=== PATIENT | female | born 1945 | race Caucasian/White ===

== ENCOUNTER 2016-04-22 10:04 | Inpatient (IN) | payer MEDICARE ==
[2016-04-22] VITALS (13 sets, daily range): BP systolic 136–185; BP diastolic 82–110; PULSE 74–115; RESP 18–28; TEMP 97.4–98.3; O2SAT 90–98
[~2016-04-22] VITALS: Ht 165.1 cm; Wt 81.6 kg
[2016-04-22] MEDS ORDERED: SODIUM CHLOR 0.9% 1000 ML INJ 1,000 ML IV SCH (10:40)
[2016-04-22] MEDS ORDERED: ONDANSETRON HCL 4 MG/2 ML VIAL IVP ONE (10:45)
[2016-04-22] MEDS ORDERED: MORPHINE SULFATE 4 MG/ML INJ IV PUSH ONE ×2 (10:45→11:00)
[2016-04-22] MEDS ORDERED: LORazepam 2 MG/ML VIAL IV PUSH ONE (11:00)
[2016-04-22 11:09] LABS: AUTOMATED NEUTROPHIL # 15.8 TH/MM3 (1.8-7.7); BASOPHIL % 0.2 % (0.0-2.0); HEMATOCRIT 51.6 % (35.0-46.0); LYMPH % 17.8 % (9.0-44.0); LYMPHOCYTE # 3.7 TH/MM3 (1.0-4.8); MEAN CELL VOLUME 91.2 FL (80.0-100.0); MEAN CORPUSCULAR HEMOGLOBIN 31.3 PG (27.0-34.0); MEAN CORPUSCULAR HGB CONC 34.3 % (32.0-36.0); MONO % 5.9 % (0.0-8.0); NEUT % 76.1 % (16.0-70.0); PLATELET COUNT 301 TH/MM3 (150-450); RED BLOOD COUNT 5.65 MIL/MM3 (4.00-5.30); RED CELL DISTRIBUTION WIDTH 13.9 % (11.6-17.2); WHITE BLOOD COUNT 20.7 TH/MM3 (4.0-11.0)
[2016-04-22 11:12] LABS: HEMO FLAGS AUTO DIFF
[2016-04-22 11:49] LABS: PLATELET ESTIMATE SMEAR NORMAL (NORMAL); PLATELET MORPHOLOGY NORMAL (NORMAL); SCAN/DIFF AUTO DIFF CONFIRMED
--- NOTE | 2016-04-22 12:25 | RADRPT ---
EXAM DATE/TIME: 04/22/2016 11:18 [facility] COMPARISON: No previous studies available for comparison. INDICATIONS: Abdominal pain with vomiting today. ORAL CONTRAST: No oral contrast ingested. RADIATION DOSE: 7.38 CTDIvol (mGy) MEDICAL HISTORY: None SURGICAL HISTORY: None. ENCOUNTER: Initial ACUITY: 1 day PAIN SCALE: 6/10 LOCATION: Right upper quadrant abdomen TECHNIQUE: Volumetric scanning of the abdomen and pelvis was performed. Using automated exposure control and ad justment of the mA and/or kV according to patient size, radiation dose was kept as low as reasonably achievable to obtain optimal diagnostic quality images. FINDINGS: Lung bases are clear. Two small low density lesions are seen in the left lobe of the liver that are probably cysts. Gallbladder appears abnormal with inflammatory changes around the gallbladder. Tim l appears adherent to the gallbladder. There is induration in the pancreas with some fluid in the le sser sac. Trace fluid is seen around the lower pole of the spleen. The right kidney is unremarkable. Apparent cyst is seen in the left kidney measuring 2 cm with a sma ll stone. Pelvic contents are unremarkable. CONCLUSION: 1. Findings consistent with what looks like acute pancreatitis. Cholecystitis is a consideration as well. 2. Trace free fluid is evident. Nate Mckenzie MD FACR on April 22, 2016 at 12:15 Board Certified Radiologist. This report was verified electronically.
[2016-04-22 13:00] LABS: ALKALINE PHOSPHATASE 58 U/L (45-117); ALT (GPT) 147 U/L (10-53); ANION GAP 13 MEQ/L (5-15); BICARBONATE 21.7 MEQ/L (21.0-32.0); BLOOD UREA NITROGEN 15 MG/DL (7-18); CHLORIDE 106 MEQ/L (98-107); GLOMERULAR FILTRATION RATE 56 ML/MIN (>89); SODIUM (NA) 141 MEQ/L (136-145)
[2016-04-22] MEDS ORDERED: SODIUM CHLOR 0.9% 1000 ML INJ 1,000 ML IV ONE ×2 (13:00→16:00)
[2016-04-22] MEDS ORDERED: SODIUM CHLOR 0.9% 1000 ML INJ 100 ML IV ONE (13:00)
[2016-04-22 13:02] LABS: LACTIC ACID GHOST NOT REPORTABLE
[2016-04-22 13:03] LABS: AST (GOT) 156 U/L (15-37); POTASSIUM 3.7 MEQ/L (3.5-5.1)
--- NOTE | 2016-04-22 13:05 | PD ---
HPI Chief Complaint: Abdominal Pain Time Seen by Provider: 10:36 Travel History International Travel<30 days: No Contact w/Intl Traveler<30days: No Traveled to known affect area: No History of Present Illness HPI Patient is a 70-year-old female with history of arthritis who presents emergency department with complaint of abdominal pain. Patient is here with and daughter who provided additional history. Patient has had abdominal pain for the course of the last several weeks to month and was evaluated by Kirti FARMER with endoscopy, colonoscopy and a gallbladder ultrasound showing evidence of gallbladder wall thickening, inflammation. It was recommended that she had a cholecystectomy the patient wanted to try homeopathic treatment and one on a diet. She had been doing well over the last 2 weeks since her bladder ultrasound, but last night she ate some bran cereal. She woke up at 2:30 in the morning with severe right upper quadrant abdominal pain that has spread throughout the abdomen. She isn't associated nausea, vomiting and has not been able to drink anything at this morning. Denies any fevers or chills. No urinary symptoms. PFSH Past Medical History Arthritis: Yes Immunizations Current: Yes Influenza Vaccination: No Para: 5 Past Surgical History Tonsillectomy: Yes Other Surgery: Yes (endoscopy, colonoscopy) Social History Alcohol Use: Yes (occas) Tobacco Use: No Substance Use: No Allergies-Medications (Allergen,Severity, Reaction): Coded Allergies: Sulfa (Verified Allergy, Intermediate, rash, 04/22/16) Reported Meds & Prescriptions Reported Meds & Active Scripts Active No Active Prescriptions or Reported Medications Review of Systems ROS Limitations: Poor Historian Except as stated in HPI: all other systems reviewed are Neg Physical Exam Exam Limitations: Poor Historian Narrative GENERAL: Uncomfortable female in moderate distress SKIN: Warm and dry. No wounds unfocused abdominal examination HEAD: Normocephalic. EYES: No scleral icterus. No injection or drainage. ENT: No nasal bleeding or discharge. Mucous membranes pink and moist. NECK: Supple CARDIOVASCULAR: Tachycardic with heart rate in the 100s, regular rhythm. No murmur appreciated. RESPIRATORY: No accessory muscle use. Clear to auscultation. Breath sounds equal bilaterally. GASTROINTESTINAL: Soft, diffuse abdominal tenderness to palpation greatest in the epigastrium without rebound or guarding MUSCULOSKELETAL: No edema. NEUROLOGICAL: Awake and alert. Motor grossly within normal limits. Normal speech. PSYCHIATRIC: Anxious Data Data Last Documented VS Vital Signs Date Time Temp Pulse Resp B/P Pulse Ox O2 Delivery O2 Flow Rate FiO2 04/22/16 11:30 74 20 162/110 97 Room Air 04/22/16 10:50 97.4 Orders Complete Blood Count With Diff (04/22/16 10:40) Comprehensive Metabolic Panel (04/22/16 10:40) Lipase (04/22/16 10:40) Urinalysis - C+S If Indicated (04/22/16 10:40) Iv Access Insert/Monitor (04/22/16 10:40) Ecg Monitoring (04/22/16 10:40) Oximetry (04/22/16 10:40) Morphine Inj (Morphine Inj) (04/22/16 10:45) Ondansetron Inj (Zofran Inj) (04/22/16 10:45) Sodium Chlor 0.9% 1000 Ml Inj (Ns 1000 M (04/22/16 10:40) Sodium Chloride 0.9% Flush (Ns Flush) (04/22/16 10:45) Electrocardiogram (04/22/16 10:40) Ed Poc Ultrasound (04/22/16 10:40) Lactic Acid Sepsis Protocol (04/22/16 10:48) Blood Culture (04/22/16 10:48) Ct Abd/Pel W/O Iv Contrast (04/22/16 10:59) Lorazepam Inj (Ativan Inj) (04/22/16 11:00) Morphine Inj (Morphine Inj) (04/22/16 11:00) Consult Rosie Nfs (04/22/16 ) Sodium Chlor 0.9% 1000 Ml Inj (Ns 1000 M (04/22/16 13:00) Sodium Chlor 0.9% 1000 Ml Inj (Ns 1000 M (04/22/16 13:00) Add Patient To Providers List (04/22/16 ) Admit Order (Ed Use Only) (04/22/16 11:59) Labs Laboratory Tests Test 04/22/16 10:55 White Blood Count 20.7 TH/MM3 Red Blood Count 5.65 MIL/MM3 Hemoglobin 17.7 GM/DL Hematocrit 51.6 % Mean Corpuscular Volume 91.2 FL Mean Corpuscular Hemoglobin 31.3 PG Mean Corpuscular Hemoglobin 34.3 % Concent Red Cell Distribution Width 13.9 % Platelet Count 301 TH/MM3 Mean Platelet Volume 8.4 FL Neutrophils (%) (Auto) 76.1 % Lymphocytes (%) (Auto) 17.8 % Monocytes (%) (Auto) 5.9 % Eosinophils (%) (Auto) 0.0 % Basophils (%) (Auto) 0.2 % Neutrophils # (Auto) 15.8 TH/MM3 Lymphocytes # (Auto) 3.7 TH/MM3 Monocytes # (Auto) 1.2 TH/MM3 Eosinophils # (Auto) 0.0 TH/MM3 Basophils # (Auto) 0.0 TH/MM3 CBC Comment AUTO DIFF Differential Comment AUTO DIFF CONFIRMED Platelet Estimate NORMAL Platelet Morphology Comment NORMAL Red Cell Morphology Comment NORMAL Lactic Acid Level 5.9 mmol/L MDM Medical Decision Making Medical Screen Exam Complete: Yes Emergency Medical Condition: Yes Medical Record Reviewed: Yes Differential Diagnosis 70-year-old female with history of arthritis here with complaint of right sided abdominal pain spreading to the rest of the abdomen since 2:30 AM after recent diagnosis of "inflamed gallbladder" on outpatient ultrasound approximate 2 weeks ago. Patient is uncomfortable, slightly tachycardic and tachypneic. Differential includes acute cholecystitis, choledocholithiasis, also pancreatitis, ascending cholangitis, appendicitis, peptic ulcer, perforated viscus, and less likely bowel obstruction. Narrative Course Patient placed on monitor, IV established and blood obtained, patient given 1 L normal saline bolus, 4 mg morphine, 4 mg Zofran and is still quite uncomfortable. Was given repeat 4 mg morphine, 1 mg Ativan with improvement of her symptoms. Bedside ultrasound performed, please see procedure note, showing inflamed gallbladder with thickened wall. Patient empirically treated with Zosyn. Dr. Giordano of surgery was involved and will treat patient operatively. However given the severity of her pain my concern for other peritoneal pathology is high and therefore CT of the abdomen and pelvis was obtained showing acute pancreatitis with acute cholecystitis. Given this Dr. Giordano would prefer the patient is admitted to medicine and him to consult, MRCP was ordered. CBC, CMP, lipase, urinalysis, lactate, blood cultures were obtained and notable for WBC 20.7, hemoglobin 17.7 likely from hemoconcentration, lactate 5.9. Additional IV fluids were administered for 30 mg/kg bolus. Remainder of the laboratory workup was notable for lipase of 25,378. Equine Breeder contacted for admission. Critical Care Narrative Aggregate critical care time was 50 minutes. Time to perform other separately billable procedures was not included in the critical care time. My time did not include minutes spent treating any other patients simultaneously or on activities that did not directly contribute to the patient's treatment. The services I provided to this patient were to treat and/or prevent clinically significant deterioration that could result in: Cardiopulmonary decompensation , , disability I provided critical care services requiring my management, as noted below: Chart data review, documentation time, medication orders and management, vital sign assessments/reviewing monitor data, ordering and reviewing lab tests, ordering and interpreting/reviewing x-rays and diagnostic studies, care of the patient and discussion of the patient with the admitting physicians. Procedures Procedure Narrative Patient consented to bedside ultrasound. Curvilinear probe was used in the right upper quadrant revealing gallbladder wall with thickening, slight fluid within the gallbladder wall but no evidence of pericholecystic fluid. Positive sonographic Lynn sign. Sepsis Criteria SIRS Criteria (2 or more): Heart rate over 90, RR > 20 or PaCO2 < 32, WBC > 98646, < 4000 or > 10% bands Sepsis Criteria (SIRS+source): Infect source susp/known Severe Sepsis (+one): Lactate >2 Septic Shock Criteria: Lactic acid >=4 Criteria Outcome: Meets SIRS criteria, Meets sepsis criteria, Meets severe sepsis criteria, Meets septic shock criteria Diagnosis Primary Impression: Septic shock Additional Impressions: Acute cholecystitis Gallstone pancreatitis Lactic acidosis Leukocytosis Qualified Code: D72.829 - Leukocytosis, unspecified type Admitting Information Admitting Physician Requests: Admit Scripts No Active Prescriptions or Reported Meds Marline Cortés MD Apr 22, 2016 13:05 Marline Cortés MD Apr 22, 2016 13:05
[2016-04-22] MEDS ORDERED: PIPERACIL-TAZO 4.5 GM PREMIX 100 ML IV ONE (13:15)
[2016-04-22] MEDS ORDERED: CHLORHEXIDINE GLUCONATE 2 % 1 PACK (2 CLOTHS) TOP PRN (13:45)
[2016-04-22] MEDS ORDERED: DEXTROSE 50% IN WATER 50 ML VIAL(D50) IV PUSH PRN (13:45)
[2016-04-22] MEDS: INSULIN NovoLIN REGULAR SUPPLEMENTAL SCALE SQ SCH ×2 (13:45→19:34)
[2016-04-22] MEDS ORDERED: GLUCAGON 1 MG/ML VIAL OTHER PRN (13:45)
[2016-04-22] MEDS ORDERED: MISCELLANEOUS NURSING INFORMATION XX SCH (13:45)
[2016-04-22] MEDS: PIPERACIL-TAZO 4.5 GM PREMIX 100 ML IV SCH ×2 (14:00→19:34)
[2016-04-22 14:12] LABS: HDL CHOLESTEROL 45.1 MG/DL (40.0-60.0); LDL CHOLESTEROL 181 MG/DL (0-99)
[2016-04-22] MEDS: PANTOPRAZOLE SODIUM 40 MG VIAL IV SCH (14:37)
--- NOTE | 2016-04-22 14:56 | RADRPT ---
EXAM DATE/TIME: 04/22/2016 13:57 [place] Corrected on: April 22, 2016; [facility] COMPARISON: CT ABDOMEN & PELVIS W/O CONTRAST, April 22, 2016, 11:18. INDICATIONS : Pancreatitis. MEDICAL HISTORY : None. SURGICAL HISTORY : Tonsillectomy. ENCOUNTER: Initial ACUITY: 2 day PAIN SCORE: 7/10 LOCATION: Abdomen. TECHNIQUE: Multiplanar, multisequence magnetic resonance imaging of the abdomen was performed. High-resolution 3D dataset was utilized to reconstruct maximum-intensity projection (MIP) images. FINDINGS: INTRAHEPATIC BILE DUCTS: Within normal limits. No significant anatomical variant is present. EXTRAHEPATIC BILE DUCTS: The common bile duct measures 3mm. No stone or filling defect is identified. GALLBLADDER: Small gallstones without wall thickening. LIVER: Normal size and signal intensity. No concerning liver lesion is identified on this non-contrast exam. Several hepatic cysts. PANCREAS: Extensive inflammatory changes. Fluid is seen surrounding the pancreas and gallbladder. Fluid in the upper abdomen and tracking in the paracolic gutters. OTHER: The remaining visualized structures demonstrate no acute abnormality on this non-contrast exam. Left renal cyst. CONCLUSION: Acute pancreatitis with extensive phlegmon reaction and ascites throughout the upper abdomen. There i s evidence of cholelithiasis. Kashmir Hunter MD on April 22, 2016 at 14:48 Board Certified Radiologist. This report was verified electronically. Kashmir Hunter MD on April 22, 2016 at 15:42 Board Certified Radiologist. This report was verified electronically.
[2016-04-22] MEDS: MORPHINE SULFATE 4 MG/ML INJ IV PUSH PRN ×5 (15:30→22:31)
[2016-04-22] MEDS: ONDANSETRON HCL 4 MG/2 ML VIAL IV PUSH PRN ×2 (15:30→22:59)
[2016-04-22] MEDS: RESP: ALBUTEROL 2.5 MG/IPRATROPIUM 0.5 MG NEB (SCH) INH ×2 (16:00→20:33)
--- NOTE | 2016-04-22 16:08 | PD.CONS ---
GI Consult GI Consult SEE FORMAL DICTATED GI CONSULT ALSO ASSESSMENT/PLAN: 1. Acute pancreatitis-prob gallstone related 2. Gallstones/Gallbladder polyps--No stones in CBD 3. Elevated LFT--however bilirubin/alkaline phosphatase is normal 4. Abd pain PLAN: 1. bowel rest 2. analgesics/copious IV fluids 3. Cont antibiotics 4. No ERCP unless evidence of CBD stones 5. will need GB removed (surgery has seen pt) 6. D/W underwriting specialist It was a pleasure seeing Mary Araujo . Thank you for this consult. Entered by: Yovany Chau MD Apr 22, 2016 16:08
--- NOTE | 2016-04-22 16:18 | RADRPT ---
EXAM DATE/TIME: 04/22/2016 15:09 [facility] COMPARISON: MRCP W/O CONTRAST, April 22, 2016, 13:57. CT ABDOMEN & PELVIS W/O CONTRAST, April 22, 2016, 11:18. EXTERNAL COMPARISON : [facility], Ultrasound abdomen, April 01, 2016 INDICATIONS : Increased lab values. Abdominal pain. MEDICAL HISTORY : Abdominal pain. SURGICAL HISTORY : Tonsillectomy. Colonoscopy. Endoscopy. ENCOUNTER: Initial ACUITY: 2 weeks PAIN SCORE: 8/10 LOCATION: Bilateral upper quadrant MEASUREMENTS: LIVER: 14.5 cm length COMMON DUCT: 5 mm RIGHT KIDNEY: 9.1 x 4.5 x 5.4 cm SPLEEN: 9.4 cm length FINDINGS: LIVER: Normal echotexture without focal lesion or ductal dilatation. Hepatopedal flow within the portal vein . A trace amount of ascites. COMMON DUCT: No intraluminal mass or stone visualized. GALLBLADDER: No discrete stones observed on the ultrasound. The gallbladder is not dilated. There is wall thickeni ng measuring 6 mm but the gallbladder is not well distended which will artifactually elevate this summer ue. There is a small amount of fluid adjacent to the gallbladder. PANCREAS: The pancreas is largely obscured by bowel gas. The visualized portions of the pancreatic head are unr emarkable. RIGHT KIDNEY: No hydronephrosis, stone or mass. SPLEEN: No focal lesion. CONCLUSION: 1. Although there is gallbladder wall thickening and pericholecystic fluid the gallbladder is not dis tended nor do I identify any stones or sludge. MRCP is more sensitive for detecting small stones. 2. Trace amount ascites. Rene Mosqueda Jr., MD on April 22, 2016 at 15:54 Board Certified Radiologist. This report was verified electronically.
[2016-04-22] MEDS: SODIUM CHLOR 0.9% 1000 ML INJ 1,000 ML IV SCH ×2 (16:44→22:30)
--- NOTE | 2016-04-22 16:54 | MH ---
cc: ALICIA BEGUM DATE OF ADMISSION 04/22/2016 DATE OF 1945 HISTORY OF PRESENT ILLNESS The patient is 70-year-old female with a past medical history of arthritis who presented to [facility] ED with complaint of diffuse abdominal pain associated with intractable nausea and vomiting. She denies any diarrhea or constipation. In addition, the patient denies any constitutional symptoms, chest pain or shortness of breath. She has had abdominal pain for several weeks in the past and was seen by Kirti FARMER and underwent endoscopy, colonoscopy and a gallbladder ultrasound which showed gallstones within the gallbladder and inflammation. It was recommended that she undergo a cholecystectomy. However, the patient refused and wanted to try homeopathic treatment. On arrival to the ED, the patient was tachycardic with a heart rate of 101 to 108. Her laboratory data significant for a leukocytosis with a WBC of 20.7 and lactic acidosis with a lactic acid level of 5.9. Furthermore, the patient was found to have significant elevated lipase level at 25,378 and elevated liver enzymes with AST of 156 and ALT 147 with a total bilirubin of 1.0. She had a CT scan of the abdomen and pelvis which showed findings consistent with acute pancreatitis in addition to possible cholecystitis. She subsequently underwent an MRCP which showed acute pancreatitis with extensive phlegmon reaction and ascites throughout the upper abdomen and evidence of cholelithiasis. In the emergency department, she was given morphine for pain and currently receiving third liter of crystalloids. The patient also was given Zosyn. She was seen by Dr. Stern from GI and Dr. Giordano from surgery and plan to continue with medical management for now until her acute pancreatitis resolves. The patient is a nondrinker. PAST MEDICAL HISTORY Significant for arthritis. PAST SURGICAL HISTORY 1. Previous tonsillectomy. 2. Previous endoscopy, colonoscopy. SOCIAL HISTORY Nonsmoker, nondrinker. ALLERGIES SULFA - ITCHING. MEDICATIONS At home, no active prescriptions reported REVIEW OF SYSTEMS As per HPI. Rest of the review of system unremarkable. PHYSICAL EXAMINATION GENERAL: A 70-year-old female with ill-appearing lying in bed in no acute respiratory distress complaining of abdominal pain. VITAL SIGNS: Temperature 97.4, pulse of 104, blood pressure 183/94, saturation 96% on room air. HEENT: Atraumatic, normocephalic. Pupils equal, round, reactive to light and accommodation. Extraocular muscles intact. Conjunctivae pink. Nonicteric sclerae. Oral mucosa within normal. Dry mucous membranes noted. NECK: Supple. No JVD, adenopathy or thyromegaly. Trachea in the midline. CARDIOVASCULAR: Tachycardic, normal S1-S2. No murmurs, rubs or gallops noted. PULMONARY: Bilateral equal entry. No crackles or wheezing. ABDOMEN: Soft, tenderness upon palpation. No guarding. EXTREMITIES: No cyanosis, clubbing or edema. NEUROLOGIC: No focal sensory deficit. LABORATORY DATA Sodium 141, potassium 3.7, chloride 106, CO2 21, BUN 15, creatinine 0.98, glucose 174, lactic acid 5.9 on repeat 3.6, total bilirubin one, AST 156, ALT 147, alk phos 58. Triglycerides 212, cholesterol 268, LDL 181, HDL 45, lipase 25,378. WBC 20, hemoglobin 17, hematocrit 51, platelet count of 301, Alcohol level less than three. IMAGING STUDIES CT abdomen and pelvis showed findings consistent with acute pancreatitis and possible cholecystitis. MRCP showed acute pancreatitis with extensive phlegmon reaction and ascites and cholelithiasis. IMPRESSION 1. Sepsis. 2. Acute pancreatitis. 3. Cholelithiasis. 4. Lactic acidemia. 5. Leukocytosis 6. Elevated liver enzymes. 7. Hypertension 8. Hyperlipidemia 9. Hyperglycemia secondary to critical illness RECOMMENDATIONS 1. Monitor neuro status and avoid sedatives. The patient is awake and alert. 2. We will place on morphine 2 mg IV q. 4 hours p.r.n. for pain. 3. Oxygen p.r.n. to maintain sats above 92%. 4. Bronchodilators on a p.r.n. basis. 5. Monitor heart rate and blood pressure closely and maintain MAP greater than 65 mmHg. Serial lactic acid monitoring. Lactic acid trending down 3.6 from 5.9 on arrival. She is currently receiving third liter of crystalloids. We will give an additional 1 liter bolus of normal saline followed by maintenance fluids NS at 150 mL an hour. 6. Monitor renal function. Insert a Roberts and electrolyte replacement per protocol. 7. Keep n.p.o. for now, bowel rest. Place on Protonix 40 mg IV for GI prophylaxis. 8. Monitor LFTs and lipase level. GI and general surgery are following. Discussed with GI plan for medical management for now with antibiotics and fluids and possible cholecystectomy once her acute pancreatitis episode resolves. 9. Continue with broad-spectrum antibiotics in the form of Zosyn and monitor for signs of infections which include fever and WBC. Follow up on blood cultures. We will obtain a baseline chest x-ray and urinalysis with culture if indicated. 10. Monitor CBC. 11. Place on sliding scale insulin with Accu-Chek q. 6-hour for glycemic control. 12. GI prophylaxis with Protonix 40 mg daily and DVT prophylaxis with SCDs. We will hold off on chemical anticoagulation prophylaxis for now pending possible procedures. Further recommendations will be based on hospital course. Critical care time 35 minutes excluding procedures. MD CHER Kessler/ /4:00 PM /4:33 PM
--- NOTE | 2016-04-22 17:36 | MB ---
cc: LEA SUTTON MD, SUNIL P. MD STELLA,BETTY Tomas M.D. DATE OF CONSULTATION 04/22/16 DATE OF 1945 be Shaina and . REASON FOR CONSULTATION I was asked to see the patient at the request of the ER as well as the medical physics researcher for further evaluation of pancreatitis. HISTORY The patient is a pleasant 70-year-old white female who has been seen by my partner, Dr. Clarke, in the office.. She had some epigastric and right upper quadrant pain which was bloating and burning in nature. She underwent an upper endoscopy that revealed a small hiatal hernias well as gastritis. Biopsy did not show any H. pylori. A colonoscopy was also done which revealed hyperplastic colon polyps as well as adenomatous polyps. An ultrasound was done which showed multiple gallstones and a cholesterol polyp. There was also thickening of the gallbladder suggestive of at least chronic gallbladder disease. The bile duct looked okay and she had two small cysts in the liver. There is also a possibility of some medical renal disease in regards to her right kidney. It was suggested that she see a surgeon, but apparently she decided on some homeopathic treatment and diet. Unfortunately, early this morning (at 2:30 in the morning) she awoke with severe right upper quadrant pain associated with nausea and dry heaves. She came to the emergency room and a CAT scan showed pancreatitis and as such MRCP showed gallstones but no common bile duct stones. We are asked to evaluate her in this regard. The patient has already been seen by general surgery and apparently has gallbladder surgery planned in the near future. At this time, her nausea and vomiting is better and she has just received some analgesia and the pain is somewhat improved but is still present. It is a severe pain radiating directly into her back. There has been no more vomiting, some nausea persists. No melena, hematemesis, diarrhea, constipation. No fever or chills. The patient denies history of blood transfusions, IV drug abuse or tattoos or hepatitis or jaundice. PAST MEDICAL HISTORY 1. Adenomatous and Hyperplastic colon polyps. 2. Gastritis. 3. Hiatal hernia, 4. Gallstones, 5. Gallbladder wall polyp 6. Liver cysts. 7. Arthritis PAST SURGICAL HISTORY Tonsillectomy SOCIAL HISTORY Does not smoke, drinks alcohol socially., nothing on a daily basis. ALLERGIES SULFA. MEDICATIONS Outpatient none. Inpatient 1. Albuterol. 2. Zofran. 3. Morphine. 4. Zosyn (piperacillin) 5. Pantoprazole 6. Glucagon insulin. FAMILY HISTORY Significant for dementia and colon cancer in mother. No history of gallbladder history, liver disease or pancreatitis. REVIEW OF SYSTEMS No weight loss, fever or chills. CARDIOPULMONARY: No chest pain, palpitation, SOB or wheezing GASTROINTESTINAL: Please see above. Otherwise unremarkable ten-point review of systems. PHYSICAL EXAMINATION VITAL SIGNS: Blood pressure is 155/85, pulse 103, respiratory rate 20. Temperature 97.4. GENERAL: She is a 70-year white female who appears her stated age, complained of mild to moderate upper abdominal pain and complained of mild abdominal pain although it is more serious (she recent got pain medications). She appears to be resting comfortably right now. HEENT: Her pupils equal, round and react to light. No obvious scleral icterus. Oropharynx had dental caries. No marleny lesion. Hearing intact. NECK: Supple. No thyromegaly or adenopathy. LUNGS: Clear to auscultation. HEART: Regular rate and rhythm. No gross rubs are heard. The heart was somewhat tachycardiac. It was regular. No murmurs are heard. ABDOMEN: Soft, nondistended. there is moderate tenderness in the upper abdomen but no rebound tenderness, organomegaly or masses. There is no obvious Lynn's sign. EXTREMITIES: No cyanosis, clubbing or edema. NEUROLOGIC: Cranial nerves II-XII are grossly intact. No gross sensory deficits. She was alert and oriented times three. SKIN: Warm and dry. IMAGING STUDIES CT scan of the abdomen and pelvis was done and this revealed findings consistent with acute pancreatitis. We also could not rule out cholecystitis. There was trace free fluid in the abdomen which is noted. There are two cysts in the, otherwise, liver appeared unremarkable. An MRCP was also done (I reviewed the MRCP as well as the CT scan with the radiologist). The MRCP showed the common bile duct to be normal. There was acute pancreatitis with extensive phlegmon. There was evidence of gallstones. LABORATORY DATA Other important laboratories include white blood cell count of 20,700, hemoglobin 13.7, hematocrit 51.6, platelet count 301,000, MCV 91.2. Chemistries reveal lactic acid initially at 5.0. was elevated and then it dropped to 3.6. Her BUN was 15, creatinine 0.98. Blood sugar is 174. Her total bilirubin 1.0, alkaline phos is normal at 58, SGOT is 156 which is elevated, SGPT 147 is elevated. Her triglyceride level is 12 which was elevated. Cholesterol at 268 is elevated. LDL 181 was elevated. Lipase is 25,378. Her calcium level is 8.7. The alcohol was less than 310. IMPRESSION 1. Pancreatitis, probably on the basis of gallstones. She does not drink excessively and triglyceride levels are only minimally elevated. She does have known gallstones on previous ultrasound as mentioned above. We talked about the pathophysiology of gallstone pancreatitis - small stone probably passed through the bile duct and irritated the ampulla leading to pancreatitis. There appears to be no common bile stones noted at this time. 2. Gallstones/gallbladder wall polyp - the previous ultrasound showed gallbladder polyps and gallstones. The MRCP did show gallstones but no common bile duct stones. 3. Increased LFTs - her transaminase is elevated. This is probably related to pancreatitis, possible cholecystitis. However, she understands that her bilirubin and alk phos are normal. This goes against common bile duct stones. As mentioned above, MRCP did not show common bile duct. 4. Abdominal pain - she has upper abdominal pain characteristic of pancreatitis. RECOMMENDATIONS 1. Bowel rest as you are doing. 2. Analgesia and copious IV fluids. 3. Continue antibiotics. - she has been started on Zofran 4. No ERCP unless there is evidence of common bile duct stones (if the bilirubin and alk phos start rising and there is evidence of ascending cholangitis then at that point she probably would need ERCP). 5. Will need gallbladder removed (surgery has already seen the patient) 6. Discuss with medical physics researcher. Further recommendations depend on how she does. Yovany Stern MD SP/ /4:12 PM /4:54 PM [place]
[2016-04-22 17:55] LABS: AMPHETAMINE, URINE NEG (NEG); BARBITURATES, URINE NEG (NEG); COCAINE, URINE NEG (NEG)
[2016-04-22 18:01] LABS: BLOOD, URINE NEG (NEG); GLUCOSE,URINE 70 mg/dL (NEG); HYALINE CAST, URINE 6 /lpf (RARE); KETONE, URINE 10 mg/dL (NEG); MUCUS URINE FEW /lpf (OCC); NITRITE,URINE NEG (NEG); URINE COLOR YELLOW (YELLW/STRAW)
[2016-04-22 18:14] LABS: COMMENT (UR) CATH-CULT NOT IND; CULTURE IF INDICATED CATH CULTURE NOT IND
--- NOTE | 2016-04-22 19:00 | MB ---
cc: ANTONY HARRELL MD DATE OF CONSULTATION 04/22/16 REASON FOR CONSULTATION Gallstone pancreatitis, cholelithiasis. HISTORY OF PRESENT ILLNESS The patient is a 70-year-old female who presents to emergency department with complaints of acute onset of abdominal pain. She states she has had this pain for several weeks, specifically right upper quadrant pain. She had some evaluation with endoscopy, colonoscopy which were within normal limits. She also had a gallbladder ultrasound showing multiple gallstones and some gallbladder polyps. She "underwent a gallbladder cleansing" and states that she has passed several stones and improved throughout the several weeks. However, she notes development of acute 10/10 pain right upper quadrant and periumbilical epigastric radiating to the back, 10/10, worse with movement, some relief with lying still, associated nausea. Denies vomiting. Therefore, she came to the emergency department for further evaluation. She had a CT scan and a bedside ultrasound. The ultrasound showed gallstones. CT scan shows acute pancreatitis with peripancreatic fluid. On my exam, the patient is resting. She does state severe abdominal pain. Vital signs are normal. Her white count is 20. She states some improvement in pain with the medication. PAST MEDICAL HISTORY 1. Arthritis, 2. History of gallstones, PAST SURGICAL HISTORY 1. Endoscopy, colonoscopy. 2. Tonsillectomy SOCIAL HISTORY Occasional ETOH, denies smoking or IVDA. ALLERGIES SULFA MEDICATIONS See EMR. FAMILY HISTORY Denies diabetes or hypertension. REVIEW OF SYSTEMS GENERAL: Denies fevers, chills. HEENT: Denies eye pain, ear pain. NECK: Denies swelling or pain. RESPIRATORY: Denies shortness of breath or wheeze. CARDIAC: Complains of minimal palpitations, tachycardia. Denies chest pain. ABDOMEN: Complains of abdominal pain, right upper quadrant epigastric diffuse in radiation, complained of nausea, denies vomiting. MUSCULOSKELETAL: Denies edema. Complained of arthralgia. NEUROLOGIC: Denies numbness, tingling. PSYCHIATRIC: Denies change in mood. Complained of anxiousness. PHYSICAL EXAMINATION GENERAL: The patient in no acute distress. VITAL SIGNS: Temperature 97.4, pulse 108, respiration 24, blood pressure 136/82, saturation 97% on room air. HEENT: No scleral icterus, PERRLAx. Normocephalic, atraumatic. NECK: Trachea midline. No JVD. HEART: S1-S2, tachycardia, respirations clear, bilateral expansion. ABDOMEN: Soft, positive tenderness to palpation epigastrium right upper quadrant. EXTREMITIES: Warm, well-perfused. No edema. : Within normal limits. MUSCULOSKELETAL: 2+ pulses. NEUROLOGIC: GCS of 15, moving all extremities. INTEGUMENT: No obvious masses or lesions. LABORATORY AND DIAGNOSTIC DATA WBC 20.7, hemoglobin 17.7, hematocrit 51.6, platelets 301. Sodium 141, potassium 3.7, chloride 106, CO2 21, BUN 15. creatinine 0.98, glucose 174, lactate 5.9, AST 156, ALT 147, alk phos 58, lipase 25,378. Coagulation pending. IMAGING STUDIES CT reviewed by myself - acute pancreatitis, peripancreatic fluid. Cholecystitis, cholelithiasis. ASSESSMENT The patient is a 70-year-old female recent history of gallstones who presents with likely gallstone pancreatitis, leukocytosis. Cheondoism. PLAN After full clinical radiologic laboratory workup, the patient with above-named issue including pancreatitis, likely etiology gallstones. Discussed with the patient's family at bedside. Recommend antibiotics and by mouth IV fluids, pain control, bowel rest. At this point, we will obtain an MRCP to further evaluate and assess the bile duct tree to rule out any cholecystectomy. Further recommend possible GI consult pending results of MRCP for further evaluation and possible ERCP. The patient may warrant a laparoscopic cholecystectomy. However, we will treat the patient first medically and will be dictated again pending MRCP whether ERCP is warranted prior to laparoscopic cholecystectomy. We will plan for cholecystectomy this hospital admission. However, again we will evaluate for common bile duct stones and allow acute inflammation of the pancreas to improve. Further, the patient is Jain. Therefore, we will try and avoid any blood product administration. Further I recommend checking coagulation studies. We will continue to monitor the patient closely for any change in clinical status and repeat lab values. This was discussed with the patient and family in detail. They state understanding and agree and would like to proceed with intervention. MD MAGAN King/ /4:28 PM /6:31 PM
--- NOTE | 2016-04-22 19:42 | RADRPT ---
EXAM DATE/TIME: 04/22/2016 18:04 [facility] COMPARISON: No previous studies available for comparison. INDICATIONS : Short of Breath. MEDICAL HISTORY : None. SURGICAL HISTORY : Tonsillectomy. Colonoscopy. Endoscopy. ENCOUNTER: Initial ACUITY: 1 day PAIN SCORE: Non-responsive. LOCATION: Bilateral chest FINDINGS: The lungs are hypoaerated. Airspace disease is seen in the left base. Mid-upper lung zarco are clear. Heart and mediastinal surfaces are unremarkable CONCLUSION: Left basilar airspace disease. Lukas Freeman MD on April 22, 2016 at 19:40 Board Certified Radiologist. This report was verified electronically.
[2016-04-23] VITALS (14 sets, daily range): BP systolic 132–183; BP diastolic 76–94; PULSE 99–118; RESP 13–20; TEMP 97.8–100; O2SAT 24–96
[2016-04-23] MEDS: MORPHINE SULFATE 4 MG/ML INJ IV PUSH PRN ×10 (00:52→22:42)
[2016-04-23] MEDS ORDERED: SODIUM CHLOR 0.9% 1000 ML INJ 1,000 ML IV SCH ×2 (01:15→05:45)
[2016-04-23] MEDS: PIPERACIL-TAZO 4.5 GM PREMIX 100 ML IV SCH ×4 (02:09→20:23)
[2016-04-23] MEDS: INSULIN NovoLIN REGULAR SUPPLEMENTAL SCALE SQ SCH ×5 (02:09→20:43)
[2016-04-23] MEDS: RESP: ALBUTEROL 2.5 MG/IPRATROPIUM 0.5 MG NEB (SCH) INH ×4 (04:00→20:25)
[2016-04-23] MEDS: CHLORHEXIDINE GLUCONATE 2 % 1 PACK (2 CLOTHS) TOP SCH (04:00)
[2016-04-23 05:02] LABS: BASOPHIL % 0.2 % (0.0-2.0); HEMATOCRIT 44.8 % (35.0-46.0); HEMO FLAGS DIFF FINAL; LYMPH % 7.5 % (9.0-44.0); LYMPHOCYTE # 0.8 TH/MM3 (1.0-4.8); MEAN CELL VOLUME 93.4 FL (80.0-100.0); MEAN CORPUSCULAR HEMOGLOBIN 30.6 PG (27.0-34.0); MEAN CORPUSCULAR HGB CONC 32.8 % (32.0-36.0); MONO % 6.3 % (0.0-8.0); PLATELET COUNT 181 TH/MM3 (150-450); RED CELL DISTRIBUTION WIDTH 14.4 % (11.6-17.2); WHITE BLOOD COUNT 10.5 TH/MM3 (4.0-11.0)
[2016-04-23 05:03] LABS: ALT (GPT) 97 U/L (10-53); ANION GAP 14 MEQ/L (5-15); AST (GOT) 80 U/L (15-37); BICARBONATE 20.2 MEQ/L (21.0-32.0); BLOOD UREA NITROGEN 15 MG/DL (7-18); CHLORIDE 109 MEQ/L (98-107); MAGNESIUM 1.8 MG/DL (1.5-2.5); POTASSIUM 4.4 MEQ/L (3.5-5.1); SODIUM (NA) 143 MEQ/L (136-145)
[2016-04-23 05:04] LABS: ALKALINE PHOSPHATASE 42 U/L (45-117); TOTAL BILIRUBIN ADULT 2.2 MG/DL (0.2-1.0)
[2016-04-23] MEDS: SODIUM CHLOR 0.9% 1000 ML INJ 1,000 ML IV SCH ×4 (05:40→20:44)
[2016-04-23] MEDS: PANTOPRAZOLE SODIUM 40 MG VIAL IV SCH (08:11)
--- NOTE | 2016-04-23 08:48 | HHI.CCPN ---
Subjective Remarks/Hospital Course The patient is 70-year-old female with a past medical history of arthritis who presented to [facility] ED with complaint of diffuse abdominal pain associated with intractable nausea and vomiting. She denies any diarrhea or constipation. In addition, the patient denies any constitutional symptoms, chest pain or shortness of breath. She has had abdominal pain for several weeks in the past and was seen by Kirti FARMER and underwent endoscopy, colonoscopy and a gallbladder ultrasound which showed gallstones within the gallbladder and inflammation. It was recommended that she undergo a cholecystectomy. However, the patient refused and wanted to try homeopathic treatment. On arrival to the ED, the patient was tachycardic with a heart rate of 101 to 108. Her laboratory data significant for a leukocytosis with a WBC of 20.7 and lactic acidosis with a lactic acid level of 5.9. Furthermore, the patient was found to have significant elevated lipase level at 25,378 and elevated liver enzymes with AST of 156 and ALT 147 with a total bilirubin of 1.0. She had a CT scan of the abdomen and pelvis which showed findings consistent with acute pancreatitis in addition to possible cholecystitis. She subsequently underwent an MRCP which showed acute pancreatitis with extensive phlegmon reaction and ascites throughout the upper abdomen and evidence of cholelithiasis. In the emergency department, she was given morphine for pain and currently receiving third liter of crystalloids. The patient also was given Zosyn. She was seen by Dr. Stern from GI and Dr. Giordano from surgery and plan to continue with medical management for now until her acute pancreatitis resolves. The patient is a nondrinker. 04/23 Patient sates her abd pain somewhat better since last night received additional 2L boluses of NS lactic acid 5.8 this morning. WBC 10 from 20 this morning Objective Vital Signs Date Time Temp Pulse Resp B/P Pulse Ox O2 Delivery O2 Flow Rate FiO2 04/23/16 06:18 18 04/23/16 06:00 108 04/23/16 04:00 97.8 172/94 95 04/22/16 20:32 Nasal Cannula 2.00 04/22/16 15:03 21 Intake and Output 04/22/16 04/22/16 04/23/16 08:00 16:00 00:00 Intake Total 821 ml Output Total 600 ml Balance 221 ml Result Diagram: 04/23/16 0426 04/23/16 0426 Other Results Laboratory Tests Test 04/22/16 04/22/16 04/22/16 04/22/16 10:55 12:06 13:48 16:00 White Blood Count 20.7 TH/MM3 Red Blood Count 5.65 MIL/MM3 Hemoglobin 17.7 GM/DL Hematocrit 51.6 % Mean Corpuscular Volume 91.2 FL Mean Corpuscular Hemoglobin 31.3 PG Mean Corpuscular Hemoglobin 34.3 % Concent Red Cell Distribution Width 13.9 % Platelet Count 301 TH/MM3 Mean Platelet Volume 8.4 FL Neutrophils (%) (Auto) 76.1 % Lymphocytes (%) (Auto) 17.8 % Monocytes (%) (Auto) 5.9 % Eosinophils (%) (Auto) 0.0 % Basophils (%) (Auto) 0.2 % Neutrophils # (Auto) 15.8 TH/MM3 Lymphocytes # (Auto) 3.7 TH/MM3 Monocytes # (Auto) 1.2 TH/MM3 Eosinophils # (Auto) 0.0 TH/MM3 Basophils # (Auto) 0.0 TH/MM3 CBC Comment AUTO DIFF Differential Comment AUTO DIFF CONFIRMED Platelet Estimate NORMAL Platelet Morphology Comment NORMAL Red Cell Morphology Comment NORMAL Lactic Acid Level 5.9 mmol/L 3.6 mmol/L Sodium Level 141 MEQ/L Potassium Level 3.7 MEQ/L Chloride Level 106 MEQ/L Carbon Dioxide Level 21.7 MEQ/L Anion Gap 13 MEQ/L Blood Urea Nitrogen 15 MG/DL Creatinine 0.98 MG/DL Estimat Glomerular Filtration 56 ML/MIN Rate Random Glucose 174 MG/DL Calcium Level 8.7 MG/DL Total Bilirubin 1.0 MG/DL Aspartate Amino Transf 156 U/L (AST/SGOT) Alanine Aminotransferase 147 U/L (ALT/SGPT) Alkaline Phosphatase 58 U/L Total Protein 6.7 GM/DL Albumin 3.4 GM/DL Triglycerides Level 212 MG/DL Cholesterol Level 268 MG/DL LDL Cholesterol 181 MG/DL HDL Cholesterol 45.1 MG/DL Cholesterol/HDL Ratio 5.94 RATIO Lipase 05767 U/L Ethyl Alcohol Level LESS THAN 3 MG/DL Urine Color YELLOW Urine Turbidity CLEAR Urine pH 6.0 Urine Specific [place] 1.022 Urine Protein TRACE mg/dL Urine Glucose (UA) 70 mg/dL Urine Ketones 10 mg/dL Urine Occult Blood NEG Urine Nitrite NEG Urine Bilirubin NEG Urine Urobilinogen LESS THAN 2.0 MG/DL Urine Leukocyte Esterase NEG Urine RBC 2 /hpf Urine WBC 1 /hpf Urine Hyaline Casts 6 /lpf Urine Mucus FEW /lpf Microscopic Urinalysis Comment CATH-CULT NOT IND Nasal Screen MRSA (PCR) NEGATIVE Urine Opiates Screen POS Urine Barbiturates Screen NEG Urine Amphetamines Screen NEG Urine Benzodiazepines Screen NEG Urine Cocaine Screen NEG Urine Cannabinoids Screen NEG Test 04/22/16 04/23/16 20:55 04:26 Lactic Acid Level 3.9 mmol/L 5.8 mmol/L White Blood Count 10.5 TH/MM3 Red Blood Count 4.80 MIL/MM3 Hemoglobin 14.7 GM/DL Hematocrit 44.8 % Mean Corpuscular Volume 93.4 FL Mean Corpuscular Hemoglobin 30.6 PG Mean Corpuscular Hemoglobin 32.8 % Concent Red Cell Distribution Width 14.4 % Platelet Count 181 TH/MM3 Mean Platelet Volume 7.8 FL Neutrophils (%) (Auto) 86.0 % Lymphocytes (%) (Auto) 7.5 % Monocytes (%) (Auto) 6.3 % Eosinophils (%) (Auto) 0.0 % Basophils (%) (Auto) 0.2 % Neutrophils # (Auto) 9.0 TH/MM3 Lymphocytes # (Auto) 0.8 TH/MM3 Monocytes # (Auto) 0.7 TH/MM3 Eosinophils # (Auto) 0.0 TH/MM3 Basophils # (Auto) 0.0 TH/MM3 CBC Comment DIFF FINAL Differential Comment Sodium Level 143 MEQ/L Potassium Level 4.4 MEQ/L Chloride Level 109 MEQ/L Carbon Dioxide Level 20.2 MEQ/L Anion Gap 14 MEQ/L Blood Urea Nitrogen 15 MG/DL Creatinine 1.19 MG/DL Random Glucose 250 MG/DL Calcium Level 8.2 MG/DL Phosphorus Level 2.8 MG/DL Magnesium Level 1.8 MG/DL Total Bilirubin 2.2 MG/DL Aspartate Amino Transf 80 U/L (AST/SGOT) Alanine Aminotransferase 97 U/L (ALT/SGPT) Alkaline Phosphatase 42 U/L Total Protein 6.1 GM/DL Albumin 3.1 GM/DL Lipase 8179 U/L Imaging Last Impressions Abdomen/Pelvis CT 04/22/16 1059 Signed Impressions: Service Date/Time: Friday, April 22, 2016 11:18 - CONCLUSION: 1. Findings consistent with what looks like acute pancreatitis. Cholecystitis is a consideration as well. 2. Trace free fluid is evident. Nate Mckenzie MD FACR Liver Ultrasound 04/22/16 0000 Signed Impressions: Service Date/Time: Friday, April 22, 2016 15:09 - CONCLUSION: 1. Although there is gallbladder wall thickening and pericholecystic fluid the gallbladder is not distended nor do I identify any stones or sludge. MRCP is more sensitive for detecting small stones. 2. Trace amount ascites. Rene Mosqueda Jr., MD Cholangiopancreatography MRI 04/22/16 0000 Signed Impressions: Service Date/Time: Friday, April 22, 2016 13:57 - CONCLUSION: Acute pancreatitis with extensive phlegmon reaction and ascites throughout the upper abdomen. There is evidence of cholelithiasis. Kashmir Hunter MD Chest X-Ray 04/22/16 0000 Signed Impressions: Service Date/Time: Friday, April 22, 2016 18:04 - CONCLUSION: Left basilar airspace disease. Lukas Freeman MD Objective Remarks GENERAL: Patient is lying in bed in no acute resp distress reports abd pain SKIN: Warm and dry. HEAD: Normocephalic. EYES: No scleral icterus. No injection or drainage. NECK: Supple, trachea midline. No JVD or lymphadenopathy. CARDIOVASCULAR: Tachycardic without murmurs, gallops, or rubs. RESPIRATORY: Breath sounds equal bilaterally. No accessory muscle use. GASTROINTESTINAL: Abdomen soft, diffuse tender on palpation. MUSCULOSKELETAL: No cyanosis, or edema. Neuro: Awake and alert. A/P Assessment and Plan 1. Sepsis. 2. Acute pancreatitis. 3. Cholelithiasis. 4. Lactic acidemia. 5. Leukocytosis..trending down 6. Elevated LFT's trending down 7. Hypertension 8. Hyperlipidemia 9. Hyperglycemia secondary to critical illness Plan Neuro: Monitor neuro status and avoid sedatives. Awake and alert. on morphine 2 mg IV q. 2 hours p.r.n. for pain. 3. Pulm: Oxygen p.r.n. to maintain sats above 92%. Bronchodilators. CXR: Left basilar airspace disease CV: Place on Cardizem 60mg QID-Monitor HR and BP keep MAP>65 mmHg. Serial lactic acid monitoring. On NS@150ml/hr : Monitor renal function. Insert a Roberts and electrolyte replacement per protocol. GI: Keep n.p.o. for now, bowel rest. n Protonix 40 mg IV for GI prophylaxis. Monitor LFTs and lipase level. GI and general surgery are following. ID: Continue with abx( Zosyn) and monitor for signs of infections(fever and WBC) Follow up on blood cultures. Check sputum cx Heme: Monitor CBC. Endo: Increase SSI medium scale for glycemic control GI prophylaxis with Protonix 40 mg daily and DVT prophylaxis with SCDs/Lovenox 40mg daily. Level 3 Evelin Davila MD Apr 23, 2016 08:48
[2016-04-23] MEDS ORDERED: DEXTROSE 50% IN WATER 50 ML VIAL(D50) IV PUSH PRN (09:00)
[2016-04-23] MEDS ORDERED: GLUCAGON 1 MG/ML VIAL OTHER PRN (09:00)
[2016-04-23] MEDS ORDERED: PROMETHAZINE INJ 25 MG/ML VIAL IM ONE (09:00)
[2016-04-23] MEDS: DILTIAZEM HCL 60 MG TAB PO SCH ×4 (09:52→20:23)
[2016-04-23] MEDS: ENOXAPARIN SODIUM 40 MG/0.4 ML SYRINGE SQ SCH (09:53)
[2016-04-23 10:35] LABS: INTERNATIONAL NORMALIZED RATIO 1.1 RATIO
--- NOTE | 2016-04-23 11:50 | HHI.GIFU ---
GI Follow-up Note Consult Follow-up Subjective: Patient laying in bed. still in some pain-better with pain meds. Objective: PHYSICAL EXAMINATION: Vitals signs stable HEENT: Pupils round and reactive to light; normocephalic; atraumatic; no jaundice. Throat is clear. CHEST: Chest is clear to auscultation and percussion. CARDIAC: Regular rate and rhythm with no murmur gallop or rubs. ABDOMEN: Soft, mildly distended, + tender-no rebound; no hepatosplenomegaly; bowel sounds are present in all four quadrants but minimal. EXTREMITIES: No edema. SKIN: no jaundice. JAILER CHIEF: alert and oriented times three. Available Data (labs, X- Rays, Procedues) : Lipase-8179. WBC now 10.5. sgot/sgpt--better. Alk po4 normal. Bilirubin now 2.2 ASSESSMENT/PLAN: 1. Acute pancreatitis-prob gallstone related 2. Gallstones/Gallbladder polyps--No stones in CBD 3. Elevated LFT-sgpt/sgot improved. alk PO4 nl. bili now 2.2 4. Abd pain-controlled with meds PLAN: 1. Cont bowel rest 2. analgesics/copious IV fluids 3. Cont antibiotics 4. No ERCP at present. Her alk po4 is normal. Slight elevation of bilirubin could be related to her GB/sepsis and not CBD stones 5. will need GB removed (surgery has seen pt) It was a pleasure seeing Mary Araujo. Thank you for this consult. Entered by: Yovany Chau MD Apr 23, 2016 11:49
--- NOTE | 2016-04-23 13:53 | HHI.PR ---
Subjective Subjective Notes sleeping, according to family, doing much better. Objective Vitals/I&O Vital Signs Date Time Temp Pulse Resp B/P Pulse Ox O2 Delivery O2 Flow Rate FiO2 04/23/16 10:00 102 04/23/16 09:37 96 Nasal Cannula 2.00 04/23/16 06:18 18 04/23/16 04:00 97.8 172/94 04/22/16 15:03 21 Labs Laboratory Tests Test 04/22/16 04/22/16 04/23/16 04/23/16 16:00 20:55 04:26 10:10 Urine Color YELLOW Urine Turbidity CLEAR Urine pH 6.0 Urine Specific [place] 1.022 Urine Protein TRACE Urine Glucose (UA) 70 Urine Ketones 10 Urine Occult Blood NEG Urine Nitrite NEG Urine Bilirubin NEG Urine Urobilinogen LESS THAN 2.0 Urine Leukocyte Esterase NEG Urine RBC 2 Urine WBC 1 Urine Hyaline Casts 6 Urine Mucus FEW Microscopic Urinalysis Comment CATH-CULT NOT IND Nasal Screen MRSA (PCR) NEGATIVE Urine Opiates Screen POS Urine Barbiturates Screen NEG Urine Amphetamines Screen NEG Urine Benzodiazepines Screen NEG Urine Cocaine Screen NEG Urine Cannabinoids Screen NEG Lactic Acid Level 3.9 5.8 White Blood Count 10.5 Red Blood Count 4.80 Hemoglobin 14.7 Hematocrit 44.8 Mean Corpuscular Volume 93.4 Mean Corpuscular Hemoglobin 30.6 Mean Corpuscular Hemoglobin 32.8 Concent Red Cell Distribution Width 14.4 Platelet Count 181 Mean Platelet Volume 7.8 Neutrophils (%) (Auto) 86.0 Lymphocytes (%) (Auto) 7.5 Monocytes (%) (Auto) 6.3 Eosinophils (%) (Auto) 0.0 Basophils (%) (Auto) 0.2 Neutrophils # (Auto) 9.0 Lymphocytes # (Auto) 0.8 Monocytes # (Auto) 0.7 Eosinophils # (Auto) 0.0 Basophils # (Auto) 0.0 CBC Comment DIFF FINAL Differential Comment Sodium Level 143 Potassium Level 4.4 Chloride Level 109 Carbon Dioxide Level 20.2 Anion Gap 14 Blood Urea Nitrogen 15 Creatinine 1.19 Random Glucose 250 Calcium Level 8.2 Phosphorus Level 2.8 Magnesium Level 1.8 Total Bilirubin 2.2 Aspartate Amino Transf 80 (AST/SGOT) Alanine Aminotransferase 97 (ALT/SGPT) Alkaline Phosphatase 42 Total Protein 6.1 Albumin 3.1 Lipase 8179 Prothrombin Time 12.0 Prothromb Time International 1.1 Ratio Test 04/23/16 11:52 Lactic Acid Level 3.1 Date/Time Procedure Status Source Growth 04/22/16 12:06 Aerobic Blood Culture - Preliminary Resulted Blood Peripheral NO GROWTH IN 1 DAY 04/22/16 12:06 Anaerobic Blood Culture - Final Resulted Blood Peripheral QNS - SEE AEROBE REPORT Abdomen: Other (mild-mod distention) A/P Assessment and Plan pancreatitis. Gallstones. Pancreatic enzyme levels improved, await resolution of active pancreatitis before discussing lap kim with IOC. D/W family at bedside. Will follow. Elpidio Sexton MD Apr 23, 2016 13:53
--- NOTE | 2016-04-23 18:20 | EKG ---
Date Performed: 04/22/2016 Time Performed: 13:32:24 PTAGE: 70 years EKG: Sinus rhythm MINIMAL ST DEPRESSION BORDERLINE ECG NO PREVIOUS TRACING DOCTOR: Paul Kendrick Interpretating Date/Time 04/23/2016 18:14:05
[2016-04-24] VITALS (15 sets, daily range): BP systolic 135–155; BP diastolic 70–77; PULSE 85–116; RESP 16–24; TEMP 98.4–101.7; O2SAT 91–94
[2016-04-24] MEDS: PIPERACIL-TAZO 4.5 GM PREMIX 100 ML IV SCH ×4 (01:01→20:20)
[2016-04-24] MEDS: MORPHINE SULFATE 4 MG/ML INJ IV PUSH PRN ×7 (01:02→23:51)
[2016-04-24] MEDS: INSULIN NovoLIN REGULAR SUPPLEMENTAL SCALE SQ SCH ×4 (03:00→20:26)
[2016-04-24] MEDS: CHLORHEXIDINE GLUCONATE 2 % 1 PACK (2 CLOTHS) TOP SCH (03:16)
[2016-04-24] MEDS: RESP: ALBUTEROL 2.5 MG/IPRATROPIUM 0.5 MG NEB (SCH) INH ×4 (03:33→20:59)
[2016-04-24] MEDS: SODIUM CHLOR 0.9% 1000 ML INJ 1,000 ML IV SCH (06:32)
[2016-04-24 06:44] LABS: ALKALINE PHOSPHATASE 30 U/L (45-117); ALT (GPT) 58 U/L (10-53); ANION GAP 11 MEQ/L (5-15); AST (GOT) 89 U/L (15-37); BICARBONATE 22.3 MEQ/L (21.0-32.0); BLOOD UREA NITROGEN 22 MG/DL (7-18); CHLORIDE 113 MEQ/L (98-107); GLOMERULAR FILTRATION RATE 53 ML/MIN (>89); SODIUM (NA) 146 MEQ/L (136-145); TOTAL BILIRUBIN ADULT 4.1 MG/DL (0.2-1.0)
[2016-04-24 06:47] LABS: AUTOMATED NEUTROPHIL # 10.4 TH/MM3 (1.8-7.7); HEMATOCRIT 37.9 % (35.0-46.0); HEMO FLAGS DIFF FINAL; LYMPH % 6.9 % (9.0-44.0); LYMPHOCYTE # 0.8 TH/MM3 (1.0-4.8); MEAN CELL VOLUME 92.9 FL (80.0-100.0); MEAN CORPUSCULAR HEMOGLOBIN 31.2 PG (27.0-34.0); MEAN CORPUSCULAR HGB CONC 33.6 % (32.0-36.0); MONO % 5.7 % (0.0-8.0); NEUT % 87.4 % (16.0-70.0); PLATELET COUNT 139 TH/MM3 (150-450); RED BLOOD COUNT 4.08 MIL/MM3 (4.00-5.30); RED CELL DISTRIBUTION WIDTH 14.5 % (11.6-17.2); WHITE BLOOD COUNT 11.9 TH/MM3 (4.0-11.0)
--- NOTE | 2016-04-24 07:16 | HHI.CCPN ---
Subjective Remarks/Hospital Course The patient is 70-year-old female with a past medical history of arthritis who presented to [facility] ED with complaint of diffuse abdominal pain associated with intractable nausea and vomiting. She denies any diarrhea or constipation. In addition, the patient denies any constitutional symptoms, chest pain or shortness of breath. She has had abdominal pain for several weeks in the past and was seen by Kirti FARMER and underwent endoscopy, colonoscopy and a gallbladder ultrasound which showed gallstones within the gallbladder and inflammation. It was recommended that she undergo a cholecystectomy. However, the patient refused and wanted to try homeopathic treatment. On arrival to the ED, the patient was tachycardic with a heart rate of 101 to 108. Her laboratory data significant for a leukocytosis with a WBC of 20.7 and lactic acidosis with a lactic acid level of 5.9. Furthermore, the patient was found to have significant elevated lipase level at 25,378 and elevated liver enzymes with AST of 156 and ALT 147 with a total bilirubin of 1.0. She had a CT scan of the abdomen and pelvis which showed findings consistent with acute pancreatitis in addition to possible cholecystitis. She subsequently underwent an MRCP which showed acute pancreatitis with extensive phlegmon reaction and ascites throughout the upper abdomen and evidence of cholelithiasis. In the emergency department, she was given morphine for pain and currently receiving third liter of crystalloids. The patient also was given Zosyn. She was seen by Dr. Stern from GI and Dr. Giordano from surgery and plan to continue with medical management for now until her acute pancreatitis resolves. The patient is a nondrinker. 04/23 Patient sates her abd pain somewhat better since last night received additional 2L boluses of NS lactic acid 5.8 this morning. WBC 10 from 20 this morning 04/24 No acute events overnight. Lactic acid and Lipase levels trending down. Afebrile. Objective Vital Signs Date Time Temp Pulse Resp B/P Pulse Ox O2 Delivery O2 Flow Rate FiO2 04/24/16 06:00 88 04/24/16 04:00 99.2 16 149/77 93 04/23/16 20:24 Nasal Cannula 2.00 04/22/16 15:03 21 Intake and Output 04/23/16 04/23/16 04/24/16 08:00 16:00 00:00 Intake Total 2114 ml 1312 ml 984 ml Output Total 450 ml 350 ml 250 ml Balance 1664 ml 962 ml 734 ml Result Diagram: 04/24/16 0527 04/24/16 0527 Other Results Laboratory Tests Test 04/23/16 04/23/16 04/24/16 10:10 11:52 05:27 Prothrombin Time 12.0 SEC Prothromb Time International 1.1 RATIO Ratio Lactic Acid Level 3.1 mmol/L White Blood Count 11.9 TH/MM3 Red Blood Count 4.08 MIL/MM3 Hemoglobin 12.7 GM/DL Hematocrit 37.9 % Mean Corpuscular Volume 92.9 FL Mean Corpuscular Hemoglobin 31.2 PG Mean Corpuscular Hemoglobin 33.6 % Concent Red Cell Distribution Width 14.5 % Platelet Count 139 TH/MM3 Mean Platelet Volume 8.3 FL Neutrophils (%) (Auto) 87.4 % Lymphocytes (%) (Auto) 6.9 % Monocytes (%) (Auto) 5.7 % Eosinophils (%) (Auto) 0.0 % Basophils (%) (Auto) 0.0 % Neutrophils # (Auto) 10.4 TH/MM3 Lymphocytes # (Auto) 0.8 TH/MM3 Monocytes # (Auto) 0.7 TH/MM3 Eosinophils # (Auto) 0.0 TH/MM3 Basophils # (Auto) 0.0 TH/MM3 CBC Comment DIFF FINAL Differential Comment Sodium Level 146 MEQ/L Potassium Level 4.0 MEQ/L Chloride Level 113 MEQ/L Carbon Dioxide Level 22.3 MEQ/L Anion Gap 11 MEQ/L Blood Urea Nitrogen 22 MG/DL Creatinine 1.03 MG/DL Estimat Glomerular Filtration 53 ML/MIN Rate Random Glucose 224 MG/DL Calcium Level 8.2 MG/DL Phosphorus Level 1.7 MG/DL Magnesium Level 2.0 MG/DL Total Bilirubin 4.1 MG/DL Aspartate Amino Transf 89 U/L (AST/SGOT) Alanine Aminotransferase 58 U/L (ALT/SGPT) Alkaline Phosphatase 30 U/L Total Protein 5.4 GM/DL Albumin 2.4 GM/DL Lipase 4303 U/L Imaging Last Impressions Abdomen/Pelvis CT 04/22/16 3565 Signed Impressions: Service Date/Time: Friday, April 22, 2016 11:18 - CONCLUSION: 1. Findings consistent with what looks like acute pancreatitis. Cholecystitis is a consideration as well. 2. Trace free fluid is evident. Nate Mckenzie MD FACR Liver Ultrasound 04/22/16 0000 Signed Impressions: Service Date/Time: Friday, April 22, 2016 15:09 - CONCLUSION: 1. Although there is gallbladder wall thickening and pericholecystic fluid the gallbladder is not distended nor do I identify any stones or sludge. MRCP is more sensitive for detecting small stones. 2. Trace amount ascites. Rene Mosqueda Jr., MD Cholangiopancreatography MRI 04/22/16 0000 Signed Impressions: Service Date/Time: Friday, April 22, 2016 13:57 - CONCLUSION: Acute pancreatitis with extensive phlegmon reaction and ascites throughout the upper abdomen. There is evidence of cholelithiasis. Kashmir Hunter MD Chest X-Ray 04/22/16 0000 Signed Impressions: Service Date/Time: Friday, April 22, 2016 18:04 - CONCLUSION: Left basilar airspace disease. Lukas Freeman MD Objective Remarks GENERAL: Patient is lying in bed in no acute resp distress reports abd pain SKIN: Warm and dry. HEAD: Normocephalic. EYES: No scleral icterus. No injection or drainage. NECK: Supple, trachea midline. No JVD or lymphadenopathy. CARDIOVASCULAR: Tachycardic without murmurs, gallops, or rubs. RESPIRATORY: Breath sounds equal bilaterally. No accessory muscle use. GASTROINTESTINAL: Abdomen soft, diffuse tender on palpation. MUSCULOSKELETAL: No cyanosis, or edema. Neuro: Awake and alert. A/P Assessment and Plan 1. Sepsis. 2. Acute pancreatitis. 3. Cholelithiasis. 4. Lactic acidemia. 5. Leukocytosis..trending down 6. Elevated LFT's trending down 7. Hypertension 8. Hyperlipidemia 9. Hyperglycemia secondary to critical illness Plan Neuro: Monitor neuro status and avoid sedatives. Awake and alert. on morphine 2 mg IV q. 2 hours p.r.n. for pain. 3. Pulm: Oxygen p.r.n. to maintain sats above 92%. Bronchodilators. CXR: Left basilar airspace disease CV: On Cardizem 60mg QID-Monitor HR and BP keep MAP>65 mmHg. Serial lactic acid monitoring( trending down) : Monitor renal function. Insert a Roberts and electrolyte replacement per protocol. Change IVF 1/2NS@75ml/hr GI: Keep n.p.o. for now, bowel rest. On Protonix 40 mg IV for GI prophylaxis. Monitor LFTs and lipase level ( trending down). GI and general surgery are following. For possible lap kmi once her acute pancreatitis resolves. ID: Continue with abx( Zosyn) and monitor for signs of infections(fever and WBC) Follow up on blood, sputum cultures. Heme: Monitor CBC. Endo: Increase SSI medium scale for glycemic control GI prophylaxis with Protonix 40 mg daily and DVT prophylaxis with SCDs/Lovenox 40mg daily. Level 3 Evelin Davila MD Apr 24, 2016 07:16
[2016-04-24] MEDS: DILTIAZEM HCL 60 MG TAB PO SCH ×4 (08:17→20:21)
[2016-04-24] MEDS: ENOXAPARIN SODIUM 40 MG/0.4 ML SYRINGE SQ SCH (08:17)
[2016-04-24] MEDS: PANTOPRAZOLE SODIUM 40 MG VIAL IV SCH (08:17)
[2016-04-24] MEDS: SODIUM CHLOR 0.45% 1000 ML INJ 1,000 ML IV SCH ×2 (08:18→20:19)
--- NOTE | 2016-04-24 11:24 | HHI.GIFU ---
GI Follow-up Note Consult Follow-up Subjective: Patient laying in bed comfortably. states pain is better. No BM's Objective: PHYSICAL EXAMINATION: Vitals signs stable No fever NECK: Neck is supple, no JVD, no lymphadenopathy. CHEST: Chest is clear to auscultation and percussion. CARDIAC: Regular rate and rhythm with no murmur gallop or rubs. ABDOMEN: mildly distended, diffuse tenderness. no rebound; no hepatosplenomegaly; bowel sounds very minimal in all four quadrants. EXTREMITIES: No clubbing, cyanosis, or edema. EDUCATION PROGRAM COORDINATOR: No focal deficits; alert and oriented times three. Available Data (labs, X- Rays, Procedues) : Bilirubin 4.1. Alk po4-normal ASSESSMENT/PLAN: 1. Acute pancreatitis-prob gallstone related 2. Gallstones/Gallbladder polyps--No stones in CBD 3. Elevated LFT-sgpt/sgot improved. alk PO4 nl. bili now 4.1 4. Abd pain-controlled with meds PLAN: 1. Cont bowel rest 2. analgesics/copious IV fluids 3. Cont antibiotics 4. No ERCP at present. Her alk po4 is normal. The elevation of bilirubin could be related to her GB/sepsis and not CBD stones. Will fractionate the bilirubin 5. will need GB removed (surgery has seen pt) It was a pleasure seeing Mary Araujo. Thank you for this consult. Entered by: Yovany Chau MD Apr 24, 2016 11:24
--- NOTE | 2016-04-24 11:36 | HHI.PR ---
Subjective Subjective Notes sleeping, on partial facemask for low sats, daughter at bedside and says she is stable. had some questions about timing of surgery. Objective Vitals/I&O Vital Signs Date Time Temp Pulse Resp B/P Pulse Ox O2 Delivery O2 Flow Rate FiO2 04/24/16 10:00 87 04/24/16 09:12 91 Nasal Cannula 5.00 04/24/16 08:00 98.8 22 148/70 04/22/16 15:03 21 Labs Laboratory Tests Test 04/23/16 04/24/16 04/24/16 11:52 05:27 09:34 Lactic Acid Level 3.1 1.8 White Blood Count 11.9 Red Blood Count 4.08 Hemoglobin 12.7 Hematocrit 37.9 Mean Corpuscular Volume 92.9 Mean Corpuscular Hemoglobin 31.2 Mean Corpuscular Hemoglobin 33.6 Concent Red Cell Distribution Width 14.5 Platelet Count 139 Mean Platelet Volume 8.3 Neutrophils (%) (Auto) 87.4 Lymphocytes (%) (Auto) 6.9 Monocytes (%) (Auto) 5.7 Eosinophils (%) (Auto) 0.0 Basophils (%) (Auto) 0.0 Neutrophils # (Auto) 10.4 Lymphocytes # (Auto) 0.8 Monocytes # (Auto) 0.7 Eosinophils # (Auto) 0.0 Basophils # (Auto) 0.0 CBC Comment DIFF FINAL Differential Comment Sodium Level 146 Potassium Level 4.0 Chloride Level 113 Carbon Dioxide Level 22.3 Anion Gap 11 Blood Urea Nitrogen 22 Creatinine 1.03 Estimat Glomerular Filtration 53 Rate Random Glucose 224 Calcium Level 8.2 Phosphorus Level 1.7 Magnesium Level 2.0 Total Bilirubin 4.1 Aspartate Amino Transf 89 (AST/SGOT) Alanine Aminotransferase 58 (ALT/SGPT) Alkaline Phosphatase 30 Total Protein 5.4 Albumin 2.4 Lipase 4303 Date/Time Procedure Status Source Growth 04/22/16 12:06 Aerobic Blood Culture - Preliminary Resulted Blood Peripheral NO GROWTH IN 2 DAYS 04/22/16 12:06 Anaerobic Blood Culture - Final Resulted Blood Peripheral QNS - SEE AEROBE REPORT Narrative Exam abdomen quiet, slightly distended. A/P Assessment and Plan significant pancreatitis, gallstones i explained to daughter she is still too ill for cholecystectomy. timing will depend on clinical condition and labs. continue aggressive medical support. elective cholecystectomy when improved Crow Olivier MD Apr 24, 2016 11:36
[2016-04-24] MEDS ORDERED: LORazepam 2 MG/ML VIAL ONE (20:00)
[2016-04-24] MEDS: SODIUM CHLORIDE 0.9% FLUSH 5 ML FLUSH IVF PRN (20:24)
[2016-04-24] MEDS ORDERED: Vancomycin Consult Pharmacy 1 EA OTHER SCH (20:45)
[2016-04-24] MEDS ORDERED: VANCOMYCIN INJ 1,250 MG in SODIUM CHLOR 0.9% 250 ML INJ 250 ML IV ONE (21:00)
[2016-04-24] MEDS: ACETAMINOPHEN 325 MG TAB PO PRN (21:11)
--- NOTE | 2016-04-24 21:31 | RADRPT ---
EXAM DATE/TIME: 04/24/2016 20:58 [facility] COMPARISON: CHEST SINGLE AP, April 22, 2016, 18:04. INDICATIONS : Shortness of breath. MEDICAL HISTORY : Sepsis. SURGICAL HISTORY : Tonsillectomy. ENCOUNTER: Subsequent ACUITY: 3 days PAIN SCORE: 0/10 LOCATION: Bilateral chest FINDINGS: Bilateral pleural effusions are suspected and bilateral consolidation greatest in the lower lobes. Th ere is cardiomegaly. There are degenerative changes of the spine seen. CONCLUSION: Diffuse bilateral airspace disease and effusions. Jaziel Suarez MD on April 24, 2016 at 21:29 Board Certified Radiologist. This report was verified electronically.
[2016-04-24] MEDS: LORazepam 2 MG/ML VIAL IV PRN (23:51)
[2016-04-25] VITALS (15 sets, daily range): BP systolic 119–148; BP diastolic 56–73; PULSE 92–110; RESP 18–24; TEMP 98–101.6; O2SAT 92–95
[2016-04-25] MEDS: INSULIN NovoLIN REGULAR SUPPLEMENTAL SCALE SQ SCH ×4 (03:00→20:08)
[2016-04-25] MEDS: RESP: ALBUTEROL 2.5 MG/IPRATROPIUM 0.5 MG NEB (SCH) INH ×4 (03:41→20:47)
[2016-04-25] MEDS: PIPERACIL-TAZO 4.5 GM PREMIX 100 ML IV SCH ×4 (03:41→19:58)
[2016-04-25] MEDS: LORazepam 2 MG/ML VIAL IV PRN (03:42)
[2016-04-25] MEDS: MORPHINE SULFATE 4 MG/ML INJ IV PUSH PRN ×4 (03:43→19:59)
[2016-04-25] MEDS: CHLORHEXIDINE GLUCONATE 2 % 1 PACK (2 CLOTHS) TOP SCH (04:00)
[2016-04-25 05:19] LABS: BASOPHIL % 0.1 % (0.0-2.0); HEMATOCRIT 30.5 % (35.0-46.0); HEMO FLAGS DIFF FINAL; LYMPH % 10.7 % (9.0-44.0); LYMPHOCYTE # 0.8 TH/MM3 (1.0-4.8); MEAN CELL VOLUME 92.5 FL (80.0-100.0); MEAN CORPUSCULAR HEMOGLOBIN 32.1 PG (27.0-34.0); MEAN CORPUSCULAR HGB CONC 34.7 % (32.0-36.0); MONO % 6.7 % (0.0-8.0); NEUT % 82.5 % (16.0-70.0); PLATELET COUNT 102 TH/MM3 (150-450); RED CELL DISTRIBUTION WIDTH 14.5 % (11.6-17.2); WHITE BLOOD COUNT 7.3 TH/MM3 (4.0-11.0)
[2016-04-25 05:46] LABS: ALKALINE PHOSPHATASE 26 U/L (45-117); ALT (GPT) 43 U/L (10-53); ANION GAP 10 MEQ/L (5-15); AST (GOT) 96 U/L (15-37); BICARBONATE 24.7 MEQ/L (21.0-32.0); BLOOD UREA NITROGEN 17 MG/DL (7-18); CHLORIDE 108 MEQ/L (98-107); GLOMERULAR FILTRATION RATE 68 ML/MIN (>89); MAGNESIUM 2.1 MG/DL (1.5-2.5); SODIUM (NA) 143 MEQ/L (136-145); TOTAL BILIRUBIN ADULT 8.4 MG/DL (0.2-1.0)
[2016-04-25 05:49] LABS: POTASSIUM 2.9 MEQ/L (3.5-5.1)
[2016-04-25] MEDS ORDERED: MAGNESIUM OXIDE 400 MG TAB PO PRN (07:15)
[2016-04-25] MEDS ORDERED: MAGNESIUM SULFATE INJ 4 GM in SODIUM CHLORIDE 0.9% INJ 92 ML IV PRN (07:15)
[2016-04-25] MEDS ORDERED: POTASSIUM PHOSPHATE MONOBASIC 500 MG TAB PO PRN (07:15)
[2016-04-25] MEDS ORDERED: POTASSIUM CHLORIDE 20 MEQ CONTROLLED RELEASE TAB PO PRN ×2 (07:15)
[2016-04-25] MEDS ORDERED: MAGNESIUM SULFATE INJ 2 GM in SODIUM CHLORIDE 0.9% INJ 96 ML IV PRN (07:15)
[2016-04-25] MEDS ORDERED: POTASSIUM CHLOR 20 MEQ PREMIX 100 ML IV PRN (07:15)
[2016-04-25] MEDS ORDERED: POTASSIUM PHOSPHATE MONOBASIC 500 MG TAB PO/TUBE PRN (07:15)
[2016-04-25] MEDS ORDERED: POTASSIUM CHLOR 40 MEQ PREMIX 100 ML IV PRN ×2 (07:15)
--- NOTE | 2016-04-25 07:20 | HHI.CCPN ---
Subjective Remarks/Hospital Course The patient is 70-year-old female with a past medical history of arthritis who presented to [facility] ED with complaint of diffuse abdominal pain associated with intractable nausea and vomiting. She denies any diarrhea or constipation. In addition, the patient denies any constitutional symptoms, chest pain or shortness of breath. She has had abdominal pain for several weeks in the past and was seen by Kirti FARMER and underwent endoscopy, colonoscopy and a gallbladder ultrasound which showed gallstones within the gallbladder and inflammation. It was recommended that she undergo a cholecystectomy. However, the patient refused and wanted to try homeopathic treatment. On arrival to the ED, the patient was tachycardic with a heart rate of 101 to 108. Her laboratory data significant for a leukocytosis with a WBC of 20.7 and lactic acidosis with a lactic acid level of 5.9. Furthermore, the patient was found to have significant elevated lipase level at 25,378 and elevated liver enzymes with AST of 156 and ALT 147 with a total bilirubin of 1.0. She had a CT scan of the abdomen and pelvis which showed findings consistent with acute pancreatitis in addition to possible cholecystitis. She subsequently underwent an MRCP which showed acute pancreatitis with extensive phlegmon reaction and ascites throughout the upper abdomen and evidence of cholelithiasis. In the emergency department, she was given morphine for pain and currently receiving third liter of crystalloids. The patient also was given Zosyn. She was seen by Dr. Stern from GI and Dr. Giordano from surgery and plan to continue with medical management for now until her acute pancreatitis resolves. The patient is a nondrinker. 04/23 Patient sates her abd pain somewhat better since last night received additional 2L boluses of NS lactic acid 5.8 this morning. WBC 10 from 20 this morning 04/24 No acute events overnight. Lactic acid and Lipase levels trending down. Afebrile. 04/25 Patient is on NRB mask with good sats. SPked fever with T: 101.8 last night pancultured and Vancomycin was added. Lipase trending down. Objective Vital Signs Date Time Temp Pulse Resp B/P Pulse Ox O2 Delivery O2 Flow Rate FiO2 04/25/16 04:00 94 Non-Rebreather 70 04/25/16 04:00 99.9 103 18 119/56 04/24/16 20:59 15.00 Intake and Output 04/24/16 04/24/16 04/25/16 08:00 16:00 00:00 Intake Total 1082 ml 986 ml 616 ml Output Total 300 ml 400 ml 425 ml Balance 782 ml 586 ml 191 ml Result Diagram: 04/25/16 0438 04/25/16 0425 Other Results Laboratory Tests Test 04/24/16 04/24/16 04/25/16 04/25/16 09:34 14:53 04:25 04:38 Lactic Acid Level 1.8 mmol/L Total Bilirubin 6.0 MG/DL 8.4 MG/DL Direct Bilirubin 3.2 MG/DL Sodium Level 143 MEQ/L Potassium Level 2.9 MEQ/L Chloride Level 108 MEQ/L Carbon Dioxide Level 24.7 MEQ/L Anion Gap 10 MEQ/L Blood Urea Nitrogen 17 MG/DL Creatinine 0.83 MG/DL Estimat Glomerular Filtration 68 ML/MIN Rate Random Glucose 261 MG/DL Calcium Level 7.9 MG/DL Phosphorus Level 0.9 MG/DL Magnesium Level 2.1 MG/DL Aspartate Amino Transf 96 U/L (AST/SGOT) Alanine Aminotransferase 43 U/L (ALT/SGPT) Alkaline Phosphatase 26 U/L Total Protein 5.0 GM/DL Albumin 2.1 GM/DL Lipase 2218 U/L White Blood Count 7.3 TH/MM3 Red Blood Count 3.30 MIL/MM3 Hemoglobin 10.6 GM/DL Hematocrit 30.5 % Mean Corpuscular Volume 92.5 FL Mean Corpuscular Hemoglobin 32.1 PG Mean Corpuscular Hemoglobin 34.7 % Concent Red Cell Distribution Width 14.5 % Platelet Count 102 TH/MM3 Mean Platelet Volume 8.4 FL Neutrophils (%) (Auto) 82.5 % Lymphocytes (%) (Auto) 10.7 % Monocytes (%) (Auto) 6.7 % Eosinophils (%) (Auto) 0.0 % Basophils (%) (Auto) 0.1 % Neutrophils # (Auto) 6.0 TH/MM3 Lymphocytes # (Auto) 0.8 TH/MM3 Monocytes # (Auto) 0.5 TH/MM3 Eosinophils # (Auto) 0.0 TH/MM3 Basophils # (Auto) 0.0 TH/MM3 CBC Comment DIFF FINAL Differential Comment Imaging Last Impressions Chest X-Ray 04/24/16 0000 Signed Impressions: Service Date/Time: Sunday, April 24, 2016 20:58 - CONCLUSION: Diffuse bilateral airspace disease and effusions. Jaziel Suarez MD Abdomen/Pelvis CT 04/22/16 1059 Signed Impressions: Service Date/Time: Friday, April 22, 2016 11:18 - CONCLUSION: 1. Findings consistent with what looks like acute pancreatitis. Cholecystitis is a consideration as well. 2. Trace free fluid is evident. Nate Mckenzie MD FACR Liver Ultrasound 04/22/16 0000 Signed Impressions: Service Date/Time: Friday, April 22, 2016 15:09 - CONCLUSION: 1. Although there is gallbladder wall thickening and pericholecystic fluid the gallbladder is not distended nor do I identify any stones or sludge. MRCP is more sensitive for detecting small stones. 2. Trace amount ascites. Rene Mosqueda Jr., MD Cholangiopancreatography MRI 04/22/16 0000 Signed Impressions: Service Date/Time: Friday, April 22, 2016 13:57 - CONCLUSION: Acute pancreatitis with extensive phlegmon reaction and ascites throughout the upper abdomen. There is evidence of cholelithiasis. Kashmir Hunter MD Objective Remarks GENERAL: Patient is lying in bed on NRB mask SKIN: Warm and dry. HEAD: Normocephalic. EYES: No scleral icterus. No injection or drainage. NECK: Supple, trachea midline. No JVD or lymphadenopathy. CARDIOVASCULAR: Tachycardic without murmurs, gallops, or rubs. RESPIRATORY: Breath sounds equal bilaterally. No accessory muscle use. GASTROINTESTINAL: Abdomen soft, mild tenderness on palpation. MUSCULOSKELETAL: No cyanosis, or edema. Neuro: Awake and alert. A/P Assessment and Plan 1. Sepsis. 2. Acute pancreatitis. 3. Cholelithiasis. 4. Lactic acidemia. 5. Leukocytosis..trending down 6. Elevated LFT's trending down 7. Hypertension 8. Hyperlipidemia 9. Hyperglycemia secondary to critical illness Plan Neuro: Monitor neuro status and avoid sedatives. Awake and alert. on morphine 2 mg IV q. 2 hours p.r.n. for pain. 3. Pulm: Wean down Oxygen and maintain sats above 92%. Bronchodilators. Will proceed with US guided right thoracentesis. Send plrural fluid for culture/analysis CV: On Cardizem 60mg QID-Monitor HR and BP keep MAP>65 mmHg. Lactic acid resolved. : Monitor renal function. Electrolyte replacement per protocol. Will need K, Phos replacement today, Diurese with Bumex 1mg x1, d/c IVF GI: Keep n.p.o. for now, bowel rest. On Protonix 40 mg IV for GI prophylaxis. Monitor LFTs and lipase level ( trending down). GI and general surgery are following. For possible lap kim once her acute pancreatitis resolves. ID: Continue with abx(Vanco, Zosyn) and monitor for signs of infections(fever and WBC) Follow up on blood, sputum cultures. Heme: Monitor CBC. Endo:SSI medium scale for glycemic control GI prophylaxis with Protonix 40 mg daily and DVT prophylaxis with SCDs/Lovenox 40mg daily. Level 3 Evelin Davila MD Apr 25, 2016 07:20
[2016-04-25] MEDS: DILTIAZEM HCL 60 MG TAB PO SCH ×4 (08:29→20:08)
[2016-04-25] MEDS: PANTOPRAZOLE SODIUM 40 MG VIAL IV SCH (08:29)
[2016-04-25] MEDS: POTASSIUM CHLOR 20 MEQ PREMIX 100 ML IV PRN ×2 (08:29→21:41)
[2016-04-25] MEDS: ENOXAPARIN SODIUM 40 MG/0.4 ML SYRINGE SQ SCH (08:29)
[2016-04-25] MEDS: SODIUM CHLOR 0.45% 1000 ML INJ 1,000 ML IV SCH (08:30)
[2016-04-25] MEDS ORDERED: POTASSIUM CHLORIDE 20 MEQ CONTROLLED RELEASE TAB PO ONE (08:45)
[2016-04-25] MEDS: POTASSIUM CHLOR 20 MEQ PREMIX 100 ML IV SCH ×2 (08:47→11:25)
[2016-04-25] MEDS: POTASSIUM PHOSPHATE INJ 30 MMOL in SODIUM CHLOR 0.9% 250 ML INJ 250 ML IV PRN (09:53)
--- NOTE | 2016-04-25 09:53 | HHI.GIFU ---
GI Follow-up Note Consult Follow-up Subjective: Patient laying in bed comfortably--on a face mask. D/W family and pt--she feels better. still with abd pain Objective: PHYSICAL EXAMINATION: Vitals signs stable No fever HEENT: Pupils round and reactive to light; normocephalic; atraumatic; jaundice noted. . Throat is clear. NECK: Neck is supple, no JVD, no lymphadenopathy. CARDIAC: Regular rate and rhythm with no murmur gallop or rubs. ABDOMEN: mildly distended, mild upper abd tender; no hepatosplenomegaly; bowel sounds are present in all four quadrants (minimal). EXTREMITIES: No clubbing, cyanosis, or edema. SKIN: jaundice. ASSOCIATE DRAFTER: No focal deficits; alert and oriented times three. Available Data (labs, X- Rays, Procedues) : hgb 10.6. WBC 7.3. alk po4-normal. Bili is elevated (mainly indirect) ASSESSMENT/PLAN: 1. Acute pancreatitis-prob gallstone related. slowly improving 2. Gallstones/Gallbladder polyps--No stones in CBD 3. Elevated LFT-sgpt/sgot improved. alk PO4 nl. bili now 8.4. suspect intrahepatic cholestasis rather than a CBD stone. ?infection ?shock liver ? underlying liver dz 4. Abd pain-controlled with meds PLAN: 1. Cont bowel rest 2. analgesics/copious IV fluids 3. Cont antibiotics 4. No ERCP at present. Her alk po4 is normal. The elevation of bilirubin could be related to her GB/sepsis and not CBD stones. Will fractionate the bilirubin 5. will need GB removed (surgery has seen pt) 6. watch her closely. if signs of infection-rescan her (CT) It was a pleasure seeing Mary Araujo. Thank you for this consult. Entered by: Yovany Chau MD Apr 25, 2016 09:53
[2016-04-25] MEDS: VANCOMYCIN INJ 1,750 MG in SODIUM CHLORID 0.9% 500 ML INJ 500 ML IV SCH (09:55)
[2016-04-25] MEDS ORDERED: BUMETANIDE INJ 1 MG/4 ML VIAL ONE (11:30)
[2016-04-25] MEDS ORDERED: BUMETANIDE INJ 1 MG/4 ML VIAL IV PUSH ONE (11:45)
--- NOTE | 2016-04-25 12:33 | RADRPT ---
EXAM DATE/TIME: 04/25/2016 11:37 [facility] COMPARISON: CHEST SINGLE AP, April 24, 2016, 20:58. INDICATIONS: Short of breath MEDICAL HISTORY: Sepsis. SURGICAL HISTORY: Tonsillectomy. ENCOUNTER: Subsequent ACUITY: 3 days PAIN SCORE: 0/10 LOCATION: Chest FINDINGS: Heart remains enlarged. There is mild interstitial edema present. There are bilateral pleural effus ion, larger on the right than the left. There is no pneumothorax. CONCLUSION: Congestive failure with bilateral pleural effusion, stable in the interval. Nate Mckenzie MD FACR on April 25, 2016 at 12:25 Board Certified Radiologist. This report was verified electronically.
[2016-04-25] MEDS: ACETAMINOPHEN 325 MG TAB PO PRN ×2 (15:03→20:12)
--- NOTE | 2016-04-25 16:10 | MB ---
cc: DANY PALACIOS MD DATE OF CONSULTATION 04/25/[address] Davila. REASON FOR CONSULTATION Pancreatitis. Sepsis. HISTORY OF PRESENT ILLNESS This is a 70-year-old white female who presented to the emergency department on 04/22/2016 with severe abdominal pain along with nausea and vomiting. The patient was diagnosed with gallbladder disease and was recommended to have cholecystectomy. However, she wanted to try homeopathic treatments. She apparently was doing well for two weeks and after that she developed sudden abdominal pain and came to the emergency department on 04/22 for evaluation. The pain was located at the right upper quadrant of the abdomen. She had a white count elevation up to 20.7. She also had lactic acid elevated to 5.9. She was started on IV antibiotics. Further evaluation with CT scan of the abdomen shows findings consistent with acute pancreatitis and a chest x-ray shows bilateral airspace disease and effusions. She is now on 100% oxygen non-rebreather mask. MRI of the abdomen showed acute pancreatitis with extensive phlegmon reaction and ascites throughout the upper abdomen. She awakened and removed the mask periodically but needs to have the oxygen on and therefore information is obtained from the medical record and from the patient's family and daughter. Her white count is improved. Blood cultures taken on 04/22 have no growth. She has a temperature now 101.6 degrees. PAST MEDICAL HISTORY 1. Arthritis. 2. Gallbladder disease. ALLERGIES SULFA. MEDICATIONS 1. Vancomycin. 2. Piperacillin / Tazobactam. 3. Potassium. 4. Ativan as needed. 5. Cardizem. 6. Lovenox. 7. DuoNeb. 8. Morphine sulfate p.r.n. SOCIAL HISTORY No tobacco use. Occasional alcohol. No illicit drugs. FAMILY HISTORY Noncontributory. REVIEW OF SYSTEMS Negative on 10-point review except for abdominal pain and nausea and vomiting. PHYSICAL EXAMINATION GENERAL: This is a well-developed female in no acute distress. She is awake. She is somnolent currently but easily arousable. VITAL SIGNS: Include temperature of 101.6 degrees, BP 136/71, rate 105, respirations 16. HEENT: Head is atraumatic. Extraocular movements grossly intact, pupils reactive to light. No icterus. Oropharynx slightly dry mucosa. NECK: Supple without adenopathy or swelling. LUNGS: Decreased breath sounds throughout. HEART: Regular S1-S2 without audible murmurs, rubs or gallops. ABDOMEN: Distended, no audible bowel sounds. Nontender on light palpation. RECTAL: Not performed. EXTREMITIES: No clubbing or cyanosis or edema. SKIN: Warm and moist and has no rash. NEUROLOGICAL The patient is somnolent but arousable. LABORATORY DATA WBC 7.3, platelet count 102,000, hemoglobin 10.6. Creatinine 0.83, BUN 17, sodium 143. AST 96, ALT 43. Alkaline phosphatase 26, lipase 2218. IMPRESSION 1. Acute pancreatitis. 2. Sepsis. 3. Bilateral pleural effusions. RECOMMENDATIONS 1. Continue vancomycin. 2. Continue piperacillin / Tazobactam. 3. Follow blood cultures. 4. Add Levaquin for now. 5. Monitor the temperature. 6. Monitor clinical status. The plans were discussed with the patient's and the daughter. Thank you for this consultation. The patient's progress will be monitored and further recommendations will be given on followup if necessary. Dany Palacios MD FD/[place] /3:10 PM /3:48 PM MTDSvetlana
--- NOTE | 2016-04-25 16:40 | HHI.PR ---
Subjective Subjective Notes tbili up, still with abd pain, jaundice, lip trending down, Objective Vitals/I&O Vital Signs Date Time Temp Pulse Resp B/P Pulse Ox O2 Delivery O2 Flow Rate FiO2 04/25/16 14:00 110 04/25/16 12:00 101.4 24 148/73 92 04/25/16 12:00 Non-Rebreather 100 04/25/16 07:38 15.00 Labs Laboratory Tests Test 04/25/16 04/25/16 04:25 04:38 Sodium Level 143 Potassium Level 2.9 Chloride Level 108 Carbon Dioxide Level 24.7 Anion Gap 10 Blood Urea Nitrogen 17 Creatinine 0.83 Estimat Glomerular Filtration 68 Rate Random Glucose 261 Calcium Level 7.9 Phosphorus Level 0.9 Magnesium Level 2.1 Total Bilirubin 8.4 Aspartate Amino Transf 96 (AST/SGOT) Alanine Aminotransferase 43 (ALT/SGPT) Alkaline Phosphatase 26 Total Protein 5.0 Albumin 2.1 Lipase 2218 White Blood Count 7.3 Red Blood Count 3.30 Hemoglobin 10.6 Hematocrit 30.5 Mean Corpuscular Volume 92.5 Mean Corpuscular Hemoglobin 32.1 Mean Corpuscular Hemoglobin 34.7 Concent Red Cell Distribution Width 14.5 Platelet Count 102 Mean Platelet Volume 8.4 Neutrophils (%) (Auto) 82.5 Lymphocytes (%) (Auto) 10.7 Monocytes (%) (Auto) 6.7 Eosinophils (%) (Auto) 0.0 Basophils (%) (Auto) 0.1 Neutrophils # (Auto) 6.0 Lymphocytes # (Auto) 0.8 Monocytes # (Auto) 0.5 Eosinophils # (Auto) 0.0 Basophils # (Auto) 0.0 CBC Comment DIFF FINAL Differential Comment Date/Time Procedure Status Source Growth 04/25/16 04:32 Aerobic Blood Culture Received Blood Peripheral Pending 04/25/16 04:32 Anaerobic Blood Culture Received Blood Peripheral Pending 04/24/16 21:10 Urine Culture - Preliminary Resulted Urine Catheterized Urine RESULTS PENDING 04/22/16 12:06 Aerobic Blood Culture - Preliminary Resulted Blood Peripheral NO GROWTH IN 3 DAYS 04/22/16 12:06 Anaerobic Blood Culture - Final Resulted Blood Peripheral QNS - SEE AEROBE REPORT Lungs: Other (decreased bs) Abdomen: Other (+ttp) A/P Assessment and Plan gallstone pancreatitis, Jehovah witness PLAN significant pancreatitis, gallstones continue aggressive medical support. elective cholecystectomy when improved Vini Giordano MD Apr 25, 2016 16:40
[2016-04-25] MEDS: LEVOFLOXACIN 750 MG PREMIX INJ 150 ML IV SCH (17:33)
--- NOTE | 2016-04-25 19:00 | EC ---
Study Study Date:04/25/2016 STUDY CONCLUSIONS SUMMARY - Left ventricle: The cavity size was normal. Wall thickness was normal. Systolic function was vigorous. The estimated ejection fraction was in the range of 65% to 70%. Wall motion was normal; there were no regional wall motion abnormalities. - Pulmonary arteries: PA peak pressure: 38mm Hg (S). If LV function is below 40, please consider prescribing an ACEI or ARB or document rationale for non-use. PROCEDURE DATA STUDY STATUS: Elective. Procedure: Transthoracic echocardiography. Image quality was fair. Scanning was performed from the parasternal, apical, and subcostal acoustic windows. Study completion: The patient tolerated the procedure well. Transthoracic echocardiography. M-mode, complete 2D, complete spectral Doppler, and color Doppler. Patient status: Inpatient. CARDIAC ANATOMY LEFT VENTRICLE: The cavity size was normal. Wall thickness was normal. Systolic function was vigorous. The estimated ejection fraction was in the range of 65% to 70%. Wall motion was normal; there were no regional wall motion abnormalities. AORTIC VALVE: Trileaflet; normal thickness leaflets. Doppler: Transvalvular velocity was within the normal range. There was no stenosis. No regurgitation. AORTA: Aortic root: The aortic root was normal in size. MITRAL VALVE: Structurally normal valve. Doppler: Transvalvular velocity was within the normal range. There was no evidence for stenosis. No regurgitation. LEFT ATRIUM: The atrium was normal in size. RIGHT VENTRICLE: The cavity size was normal. Wall thickness was normal. PULMONIC VALVE: Doppler: Transvalvular velocity was within the normal range. There was no evidence for stenosis. No regurgitation. TRICUSPID VALVE: Structurally normal valve. Doppler: Transvalvular velocity was within the normal range. Trace regurgitation. PULMONARY ARTERY: The main pulmonary artery was normal-sized. Systolic pressure was within the normal range. RIGHT ATRIUM: The atrium was normal in size. PERICARDIUM: There was no pericardial effusion. SYSTEMIC VEINS: Inferior vena cava: Poorly visualized. BASIC MEASUREMENTS ADULT Normal Left ventricle LV internal dimension, ED, chordal level, *27.4 mm 43-52 PLAX LV internal dimension, ES, chordal level, *19 mm 23-38 PLAX Fractional shortening, chordal level, PLAX 31 % >29 LV posterior wall thickness, ED 9.61 mm IVS/LVPW ratio, ED *1.82 <1.3 Ventricular septum Septal thickness, ED 17.5 mm Aortic valve Leaflet separation 19 mm 15-26 Right ventricle RV internal dimension, ED, PLAX 23 mm 19-38 BASIC MEASUREMENTS ADULT Normal Aortic valve Leaflet separation 19 mm 15-26 Aorta Root diameter, ED 31 mm 20-37 Left atrium Anterior-posterior dimension, ES 25 mm 19-40 LA/aortic root ratio 0.81 DOPPLER MEASUREMENTS ADULT Normal Main pulmonary artery Pressure, S *38 mm Hg =30 Mitral valve Peak E-wave velocity 51.4 cm/s Peak A-wave velocity 76 cm/s Peak E/A ratio 0.7 Tricuspid valve Regurgitant peak velocity 263 cm/s Peak RV-RA gradient, S 28 mm Hg Systemic veins Estimated CVP 10 mm Hg Right ventricle RV pressure, S *38 mm Hg <30 LEGEND: Mean values are shown as u=mean value. Asterisk (*) fishman values outside specified normal range. Prepared and signed by Dale Dykes [id number]
[2016-04-26] VITALS (17 sets, daily range): BP systolic 105–132; BP diastolic 57–67; PULSE 86–104; RESP 20–30; TEMP 98.1–100; O2SAT 90–98
[2016-04-26] MEDS: POTASSIUM CHLOR 20 MEQ PREMIX 100 ML IV PRN ×3 (00:14→03:33)
[2016-04-26] MEDS: MORPHINE SULFATE 4 MG/ML INJ IV PUSH PRN ×6 (00:19→21:42)
[2016-04-26] MEDS: INSULIN NovoLIN REGULAR SUPPLEMENTAL SCALE SQ SCH ×4 (03:00→20:14)
[2016-04-26] MEDS: RESP: ALBUTEROL 2.5 MG/IPRATROPIUM 0.5 MG NEB (SCH) INH ×2 (03:02→10:14)
[2016-04-26] MEDS: PIPERACIL-TAZO 4.5 GM PREMIX 100 ML IV SCH ×4 (03:33→19:58)
[2016-04-26] MEDS: CHLORHEXIDINE GLUCONATE 2 % 1 PACK (2 CLOTHS) TOP SCH (03:36)
[2016-04-26 06:47] LABS: AUTOMATED NEUTROPHIL # 6.1 TH/MM3 (1.8-7.7); BASOPHIL % 0.1 % (0.0-2.0); EOSINOPHIL % 0.6 % (0.0-4.0); HEMATOCRIT 29.8 % (35.0-46.0); HEMO FLAGS DIFF FINAL; LYMPHOCYTE # 0.9 TH/MM3 (1.0-4.8); MEAN CELL VOLUME 91.5 FL (80.0-100.0); MEAN CORPUSCULAR HEMOGLOBIN 31.7 PG (27.0-34.0); MEAN CORPUSCULAR HGB CONC 34.7 % (32.0-36.0); MONO % 7.8 % (0.0-8.0); NEUT % 79.5 % (16.0-70.0); PLATELET COUNT 118 TH/MM3 (150-450); RED BLOOD COUNT 3.26 MIL/MM3 (4.00-5.30); RED CELL DISTRIBUTION WIDTH 14.4 % (11.6-17.2); WHITE BLOOD COUNT 7.6 TH/MM3 (4.0-11.0)
[2016-04-26 07:09] LABS: ALKALINE PHOSPHATASE 25 U/L (45-117); ALT (GPT) 37 U/L (10-53); ANION GAP 6 MEQ/L (5-15); AST (GOT) 60 U/L (15-37); BICARBONATE 29.8 MEQ/L (21.0-32.0); BLOOD UREA NITROGEN 14 MG/DL (7-18); CHLORIDE 105 MEQ/L (98-107); GLOMERULAR FILTRATION RATE 70 ML/MIN (>89); MAGNESIUM 2.1 MG/DL (1.5-2.5); POTASSIUM 4.1 MEQ/L (3.5-5.1); SODIUM (NA) 141 MEQ/L (136-145)
--- NOTE | 2016-04-26 07:13 | HHI.CCPN ---
Subjective Remarks/Hospital Course The patient is 70-year-old female with a past medical history of arthritis who presented to [facility] ED with complaint of diffuse abdominal pain associated with intractable nausea and vomiting. She denies any diarrhea or constipation. In addition, the patient denies any constitutional symptoms, chest pain or shortness of breath. She has had abdominal pain for several weeks in the past and was seen by Kirti FARMER and underwent endoscopy, colonoscopy and a gallbladder ultrasound which showed gallstones within the gallbladder and inflammation. It was recommended that she undergo a cholecystectomy. However, the patient refused and wanted to try homeopathic treatment. On arrival to the ED, the patient was tachycardic with a heart rate of 101 to 108. Her laboratory data significant for a leukocytosis with a WBC of 20.7 and lactic acidosis with a lactic acid level of 5.9. Furthermore, the patient was found to have significant elevated lipase level at 25,378 and elevated liver enzymes with AST of 156 and ALT 147 with a total bilirubin of 1.0. She had a CT scan of the abdomen and pelvis which showed findings consistent with acute pancreatitis in addition to possible cholecystitis. She subsequently underwent an MRCP which showed acute pancreatitis with extensive phlegmon reaction and ascites throughout the upper abdomen and evidence of cholelithiasis. In the emergency department, she was given morphine for pain and currently receiving third liter of crystalloids. The patient also was given Zosyn. She was seen by Dr. Stern from GI and Dr. Giordano from surgery and plan to continue with medical management for now until her acute pancreatitis resolves. The patient is a nondrinker. 04/23 Patient sates her abd pain somewhat better since last night received additional 2L boluses of NS lactic acid 5.8 this morning. WBC 10 from 20 this morning 04/24 No acute events overnight. Lactic acid and Lipase levels trending down. Afebrile. 04/25 Patient is on NRB mask with good sats. SPked fever with T: 101.8 last night pancultured and Vancomycin was added. Lipase trending down. 04/26 Patient was placed on BIPAP 02/24 with FIO2 80% , T:101.0 last night. Given Bumex 1mg x1 yesterday with good UO. Patient states her breathing and abd pain is better. Objective Vital Signs Date Time Temp Pulse Resp B/P Pulse Ox O2 Delivery O2 Flow Rate FiO2 3/7/17 06:00 103 04/26/16 04:00 92 Bi-Pap 80 04/26/16 04:00 99.2 24 105/60 04/25/16 07:38 15.00 Intake and Output 04/25/16 04/25/16 04/26/16 08:00 16:00 00:00 Intake Total 902 ml 1033 ml 455 ml Output Total 700 ml 2600 ml 1750 ml Balance 202 ml -1567 ml -1295 ml Result Diagram: 04/26/16 0604 04/25/16 1700 Other Results Laboratory Tests Test 04/25/16 04/26/16 17:00 06:04 Potassium Level 3.2 MEQ/L White Blood Count 7.6 TH/MM3 Red Blood Count 3.26 MIL/MM3 Hemoglobin 10.3 GM/DL Hematocrit 29.8 % Mean Corpuscular Volume 91.5 FL Mean Corpuscular Hemoglobin 31.7 PG Mean Corpuscular Hemoglobin 34.7 % Concent Red Cell Distribution Width 14.4 % Platelet Count 118 TH/MM3 Mean Platelet Volume 8.2 FL Neutrophils (%) (Auto) 79.5 % Lymphocytes (%) (Auto) 12.0 % Monocytes (%) (Auto) 7.8 % Eosinophils (%) (Auto) 0.6 % Basophils (%) (Auto) 0.1 % Neutrophils # (Auto) 6.1 TH/MM3 Lymphocytes # (Auto) 0.9 TH/MM3 Monocytes # (Auto) 0.6 TH/MM3 Eosinophils # (Auto) 0.0 TH/MM3 Basophils # (Auto) 0.0 TH/MM3 CBC Comment DIFF FINAL Differential Comment Imaging Last Impressions Chest X-Ray 04/25/16 0000 Signed Impressions: Service Date/Time: Monday, April 25, 2016 11:37 - CONCLUSION: Congestive failure with bilateral pleural effusion, stable in the interval. Nate Mckenzie MD FACR Abdomen/Pelvis CT 04/22/16 1059 Signed Impressions: Service Date/Time: Friday, April 22, 2016 11:18 - CONCLUSION: 1. Findings consistent with what looks like acute pancreatitis. Cholecystitis is a consideration as well. 2. Trace free fluid is evident. Nate Mckenzie MD FACR Liver Ultrasound 04/22/16 0000 Signed Impressions: Service Date/Time: Friday, April 22, 2016 15:09 - CONCLUSION: 1. Although there is gallbladder wall thickening and pericholecystic fluid the gallbladder is not distended nor do I identify any stones or sludge. MRCP is more sensitive for detecting small stones. 2. Trace amount ascites. Rene Mosqueda Jr., MD Cholangiopancreatography MRI 04/22/16 0000 Signed Impressions: Service Date/Time: Friday, April 22, 2016 13:57 - CONCLUSION: Acute pancreatitis with extensive phlegmon reaction and ascites throughout the upper abdomen. There is evidence of cholelithiasis. Kashmir Hunter MD Objective Remarks GENERAL: Patient is lying in bed on BIPAP SKIN: Warm and dry. HEAD: Normocephalic. EYES: No scleral icterus. No injection or drainage. NECK: Supple, trachea midline. No JVD or lymphadenopathy. CARDIOVASCULAR: Tachycardic without murmurs, gallops, or rubs. RESPIRATORY: Breath sounds equal bilaterally.Few coarse BS GASTROINTESTINAL: Abdomen soft, mild tenderness on palpation. MUSCULOSKELETAL: No cyanosis, or edema. Neuro: Awake and alert. A/P Assessment and Plan 1. Sepsis. 2. Acute pancreatitis. 3. Cholelithiasis. 4. Lactic acidemia. 5. Leukocytosis..trending down 6. Elevated LFT's trending down 7. Hypertension 8. Hyperlipidemia 9. Hyperglycemia secondary to critical illness Plan Neuro: Monitor neuro status and avoid sedatives. Awake and alert. on morphine 2 mg IV q. 2 hours p.r.n. for pain. 3. Pulm: Wean down Oxygen and maintain sats above 92%. Bronchodilators. NIPPV PRN for resp distress. If any worsening in resp status will proceed with intubation Will check CT chest for further summer pulm parenchyma s/p US guided right thoracentesis with removal 350 ml pleural fluid. Send pleural fluid for analysis & culture. CV: On Cardizem 60mg QID-Monitor HR and BP keep MAP>65 mmHg. Echo showed EF 65-70% Lactic acid resolved. : Monitor renal function. Electrolyte replacement per protocol. GI: Keep n.p.o. for now, bowel rest. On Protonix 40 mg IV for GI prophylaxis. Monitor LFTs and lipase level ( trending down). GI and general surgery are following. Repeat CT abd/pelvis with IV contrast today showed acute pancreatitis with necrosis and inflammation. Discussed with Surgery Dr. Giordano continue medical management for now . Discussed with GI. 3/3 MRCP: Acute pancreatitis with extensive phlegmon reaction and ascites throughout the upper abdomen. There is evidence of cholelithiasis. 3/3 US Liver: Although there is gallbladder wall thickening and pericholecystic fluid the gallbladder is not distended, no stones or sludge. 3/3 CT abdomen: Findings consistent with acute pancreatitis. Cholecystitis is a consideration as well. For possible lap kim once her acute pancreatitis resolves. ID: Continue with abx per ID (Vanco, Levaquin, Zosyn) and monitor for signs of infections(fever and WBC) Follow up on blood, sputum cultures. Heme: Monitor CBC. Endo:SSI medium scale for glycemic control GI prophylaxis with Protonix 40 mg daily and DVT prophylaxis with SCDs/Lovenox 40mg daily. Level 3 Evelin Davila MD Apr 26, 2016 07:13
[2016-04-26 07:15] LABS: TOTAL BILIRUBIN ADULT 15.2 MG/DL (0.2-1.0)
[2016-04-26] MEDS ORDERED: BUMETANIDE INJ 1 MG/4 ML VIAL IV PUSH ONE (07:30)
[2016-04-26] MEDS: SODIUM PHOSPHATE INJ 30 MMOL in SODIUM CHLOR 0.9% 250 ML INJ 240 ML IV PRN (07:55)
[2016-04-26] MEDS: ENOXAPARIN SODIUM 40 MG/0.4 ML SYRINGE SQ SCH (07:56)
--- NOTE | 2016-04-26 08:03 | RADRPT ---
EXAM DATE/TIME: 04/26/2016 07:09 [place] COMPARISON: CHEST SINGLE AP, April 25, 2016, 11:37. INDICATIONS : Short of breath. MEDICAL HISTORY : None. SURGICAL HISTORY : None. ENCOUNTER: Subsequent ACUITY: 4 - 6 days PAIN SCORE: 2/10 LOCATION: Bilateral chest FINDINGS: Portable AP view of the chest demonstrates a normal size cardiac silhouette. There are small bibasila r pleural-parenchymal opacities, left larger than right. These are slightly smaller than on the prior study. No pneumothorax is visualized. Bones demonstrate no acute finding. CONCLUSION: Bibasilar opacities representing pleural effusions with associated volume loss and/or consolidation. Left is slightly larger than right. These appear smaller than on yesterday's examination but may be s econdary to upright positioning today versus semiupright previously. Nayan Esteves MD on April 26, 2016 at 8:00 Board Certified Radiologist. This report was verified electronically.
[2016-04-26] MEDS: PANTOPRAZOLE SODIUM 40 MG VIAL IV SCH (08:08)
[2016-04-26] MEDS: DILTIAZEM HCL 60 MG TAB PO SCH ×4 (08:08→19:58)
--- NOTE | 2016-04-26 09:18 | HHI.GIFU ---
GI Follow-up Note Consult Follow-up Subjective: Patient laying in bed. still with some pain. no N/V Objective: PHYSICAL EXAMINATION: Vitals signs stable Tmax 101 HEENT: Pupils round and reactive to light; normocephalic; atraumatic; + jaundice. Throat is clear. CARDIAC: Regular rate and rhythm with no murmur gallop or rubs. ABDOMEN: mildly distended + tender; no rebound. no hepatosplenomegaly; bowel sounds are present in all four quadrants. EXTREMITIES: No c edema. SKIN: Normal; no rash; + jaundice. BLOCK TRIMMER: No focal deficits; alert and oriented times three. Available Data (labs, X- Rays, Procedues) : Sgpt nl. Sgot 60, alk po4 nl. Bili now 15.2 ASSESSMENT/PLAN: 1. Acute pancreatitis-prob gallstone related. slowly improving. 2. Gallstones/Gallbladder polyps--No stones in CBD 3. Elevated LFT-sgpt/sgot improved. alk PO4 nl. bili now 15.2. suspect intrahepatic cholestasis rather than a CBD stone. ?infection ?shock liver ? underlying liver dz ? meds (Zosyn) 4. Abd pain-controlled with meds PLAN: 1. Cont bowel rest 2. analgesics 3. Cont antibiotics 4. No ERCP at present. Her alk po4 is normal. The elevation of bilirubin could be related to her GB/sepsis and not CBD stones. 5. will need GB removed (surgery has seen pt) 6. elevated temperature is worrisome--re-scan pt for any abscess etc (D/W safety inspector) It was a pleasure seeing Mary Araujo. Thank you for this consult. Entered by: Yovany Chau MD Apr 26, 2016 09:18
[2016-04-26] MEDS ORDERED: DIATRIZOATE MEGLUM/DIATRIZOATE SOD 9 ML CUP PO ONE (10:00)
[2016-04-26] MEDS: VANCOMYCIN INJ 1,750 MG in SODIUM CHLORID 0.9% 500 ML INJ 500 ML IV SCH (10:33)
[2016-04-26] MEDS ORDERED: IOHEXOL 350 MG/ML 10 ML VIAL (for RAD DIAG) IV ONE (13:15)
--- NOTE | 2016-04-26 13:34 | HHI.IDPN ---
Note Infectious Disease Note Patient notes being thirsty. Awake. On NRFM. Denies abdominal pain. Temp spikes. PAST MEDICAL HISTORY 1. Arthritis. 2. Gallbladder disease. ALLERGIES SULFA. MEDICATIONS 1. Vancomycin. 2. Piperacillin / Tazobactam. SOCIAL HISTORY No tobacco use. Occasional alcohol. No illicit drugs. FAMILY HISTORY Noncontributory. OBJECTIVE: Vital Signs Date Time Temp Pulse Resp B/P Pulse Ox O2 Delivery O2 Flow Rate FiO2 04/26/16 08:00 Bi-Pap 80 04/26/16 07:21 94 80 04/26/16 06:00 103 04/26/16 04:17 87 04/26/16 04:00 92 Bi-Pap 80 04/26/16 04:00 99.2 87 24 105/60 92 04/26/16 03:56 92 80 04/26/16 02:00 89 04/26/16 01:01 94 80 04/26/16 00:00 92 04/26/16 00:00 99.9 92 20 126/67 94 04/26/16 00:00 94 Bi-Pap 80 04/25/16 22:00 92 04/25/16 20:43 95 80 04/25/16 20:00 101.0 104 22 132/70 94 04/25/16 20:00 94 Bi-Pap 80 04/25/16 20:00 104 04/25/16 18:00 104 04/25/16 17:45 94 80 04/25/16 16:00 107 04/25/16 16:00 92 Non-Rebreather 100 04/25/16 16:00 101.6 107 22 138/69 93 04/25/16 14:00 110 04/25/16 04/25/16 04/26/16 15:00 23:00 07:00 Intake Total 1033 ml 455 ml 607 ml Output Total 2600 ml 1750 ml 750 ml Balance -1567 ml -1295 ml -143 ml Intake Oral 50 ml 0 ml IV Total 1033 ml 405 ml 607 ml Output Urine Total 2600 ml 1750 ml 750 ml # Bowel Movements 0 0 0 Laboratory Tests Test 04/25/16 04/26/16 04:38 06:04 White Blood Count 7.3 TH/MM3 7.6 TH/MM3 Red Blood Count 3.30 MIL/MM3 3.26 MIL/MM3 Hemoglobin 10.6 GM/DL 10.3 GM/DL Hematocrit 30.5 % 29.8 % Mean Corpuscular Volume 92.5 FL 91.5 FL Mean Corpuscular Hemoglobin 32.1 PG 31.7 PG Mean Corpuscular Hemoglobin 34.7 % 34.7 % Concent Red Cell Distribution Width 14.5 % 14.4 % Platelet Count 102 TH/MM3 118 TH/MM3 Mean Platelet Volume 8.4 FL 8.2 FL Neutrophils (%) (Auto) 82.5 % 79.5 % Lymphocytes (%) (Auto) 10.7 % 12.0 % Monocytes (%) (Auto) 6.7 % 7.8 % Eosinophils (%) (Auto) 0.0 % 0.6 % Basophils (%) (Auto) 0.1 % 0.1 % Neutrophils # (Auto) 6.0 TH/MM3 6.1 TH/MM3 Lymphocytes # (Auto) 0.8 TH/MM3 0.9 TH/MM3 Monocytes # (Auto) 0.5 TH/MM3 0.6 TH/MM3 Eosinophils # (Auto) 0.0 TH/MM3 0.0 TH/MM3 Basophils # (Auto) 0.0 TH/MM3 0.0 TH/MM3 CBC Comment DIFF FINAL DIFF FINAL Differential Comment Laboratory Tests Test 04/24/16 04/25/16 04/25/16 04/26/16 14:53 04:25 17:00 06:04 Total Bilirubin 6.0 MG/DL 8.4 MG/DL 15.2 MG/DL Direct Bilirubin 3.2 MG/DL Sodium Level 143 MEQ/L 141 MEQ/L Potassium Level 2.9 MEQ/L 3.2 MEQ/L 4.1 MEQ/L Chloride Level 108 MEQ/L 105 MEQ/L Carbon Dioxide Level 24.7 MEQ/L 29.8 MEQ/L Anion Gap 10 MEQ/L 6 MEQ/L Blood Urea Nitrogen 17 MG/DL 14 MG/DL Creatinine 0.83 MG/DL 0.81 MG/DL Estimat Glomerular Filtration 68 ML/MIN 70 ML/MIN Rate Random Glucose 261 MG/DL 188 MG/DL Calcium Level 7.9 MG/DL 8.0 MG/DL Phosphorus Level 0.9 MG/DL 0.8 MG/DL Magnesium Level 2.1 MG/DL 2.1 MG/DL Aspartate Amino Transf 96 U/L 60 U/L (AST/SGOT) Alanine Aminotransferase 43 U/L 37 U/L (ALT/SGPT) Alkaline Phosphatase 26 U/L 25 U/L Total Protein 5.0 GM/DL 4.9 GM/DL Albumin 2.1 GM/DL 1.8 GM/DL Lipase 2218 U/L 530 U/L Microbiology Date/Time Procedure Status Source Growth 04/24/16 21:10 Urine Culture - Final Complete Urine Catheterized Urine NO GROWTH IN 48 HOURS. 04/25/16 04:25 Aerobic Blood Culture - Preliminary Resulted Blood Peripheral NO GROWTH IN 1 DAY 04/25/16 04:25 Anaerobic Blood Culture - Preliminary Resulted Blood Peripheral NO GROWTH IN 1 DAY 04/25/16 04:32 Aerobic Blood Culture - Preliminary Resulted Blood Peripheral NO GROWTH IN 1 DAY 04/25/16 04:32 Anaerobic Blood Culture - Preliminary Resulted Blood Peripheral NO GROWTH IN 1 DAY IMAGING: Chest X-Ray 04/26/16 0000 Signed Impressions: Service Date/Time: Tuesday, April 26, 2016 07:09 - CONCLUSION: Bibasilar opacities representing pleural effusions with associated volume loss and/or consolidation. Left is slightly larger than right. These appear smaller than on yesterday's examination but may be secondary to upright positioning today versus semiupright previously. Nayan Esteves MD Abdomen/Pelvis CT 04/22/16 1059 Signed Impressions: Service Date/Time: Friday, April 22, 2016 11:18 - CONCLUSION: 1. Findings consistent with what looks like acute pancreatitis. Cholecystitis is a consideration as well. 2. Trace free fluid is evident. Nate Mckenzie MD FACR Liver Ultrasound 04/22/16 0000 Signed Impressions: Service Date/Time: Friday, April 22, 2016 15:09 - CONCLUSION: 1. Although there is gallbladder wall thickening and pericholecystic fluid the gallbladder is not distended nor do I identify any stones or sludge. MRCP is more sensitive for detecting small stones. 2. Trace amount ascites. Rene Mosqueda Jr., MD Cholangiopancreatography MRI 04/22/16 0000 Signed Impressions: Service Date/Time: Friday, April 22, 2016 13:57 - CONCLUSION: Acute pancreatitis with extensive phlegmon reaction and ascites throughout the upper abdomen. There is evidence of cholelithiasis. Kashmir Hunter MD PHYSICAL EXAMINATION GENERAL: No acute distress. She is awake. HEENT: No icterus. Oropharynx slightly dry mucosa. NECK: Supple without adenopathy or swelling. LUNGS: Decreased breath sounds. HEART: Regular S1-S2 without audible murmurs, rubs or gallops. ABDOMEN: Distended, no audible bowel sounds. Nontender on light palpation. EXTREMITIES: No clubbing or cyanosis or edema. SKIN: Warm and moist and has no rash. NEUROLOGICAL: Non focal. IMPRESSION 1. Acute pancreatitis. 2. Sepsis. 3. Bilateral pleural effusions. RECOMMENDATIONS 1. Continue Vancomycin. 2. Continue piperacillin / Tazobactam. 3. Continue Levaquin. 4. Monitor the temperature. 5. Monitor clinical status. Bam Ly MD Apr 26, 2016 13:34
--- NOTE | 2016-04-26 13:47 | RADRPT ---
EXAM DATE/TIME: 04/26/2016 12:34 [facility] COMPARISON: CHEST SINGLE AP, April 26, 2016, 7:09. INDICATIONS : Respiratory distress. IV CONTRAST: 90 cc Omnipaque 350 (iohexol) IV ; Cumulative dose for multiple exams. RADIATION DOSE: 17.89 CTDIvol (mGy) ; Combined studies - Thorax/Abdomen/Pelvis MEDICAL HISTORY : Hypertension. Pancreatitis. SURGICAL HISTORY : None. ENCOUNTER: Initial ACUITY: 1 day PAIN SCALE: 4/10 LOCATION: Bilateral upper quadrant TECHNIQUE: Volumetric scanning of the chest was performed. Using automated exposure control and adjustment of t he mA and/or kV according to patient size, radiation dose was kept as low as reasonably achievable to obtain optimal diagnostic quality images. FINDINGS: LUNGS: There is bibasilar consolidation with air bronchograms. No concerning pulmonary nodule is visualized . Scattered ground glass densities in upper lobes. PLEURA: There are moderate bilateral pleural effusions.. MEDIASTINUM: The heart and great vessels demonstrate no acute abnormality. There is no mediastinal or hilar lymph adenopathy. AXILLAE: Within normal limits. No lymphadenopathy. SKELETAL: Within normal limits for patient age. MISCELLANEOUS: The visualized upper abdominal organs demonstrate no acute abnormality. Hepatic low densities will be discussed on CT abdomen. CONCLUSION: 1. Bibasilar consolidation and moderate bilateral pleural effusions. This likely represents compressi ve atelectasis although pneumonia cannot be excluded. 2. Minimal groundglass densities in the upper lobes are nonspecific. Kashmir Hunter MD on April 26, 2016 at 13:43 Board Certified Radiologist. This report was verified electronically.
--- NOTE | 2016-04-26 13:52 | RADRPT ---
EXAM DATE/TIME: 04/26/2016 12:34 [facility] COMPARISON: CT ABDOMEN & PELVIS W/O CONTRAST, April 22, 2016, 11:18. INDICATIONS : Pancreatitis, abdominal distention. IV CONTRAST: 90 cc Omnipaque 350 (iohexol) IV ; Cumulative dose for multiple exams. ORAL CONTRAST: Prescribed oral contrast ingested. RADIATION DOSE: 17.89 CTDIvol (mGy) ; Combined studies - Thorax/Abdomen/Pelvis MEDICAL HISTORY : Hypertension. Pancreatitis. SURGICAL HISTORY : None. ENCOUNTER: Initial ACUITY: 1 week PAIN SCALE: 5/10 LOCATION: Bilateral upper quadrant TECHNIQUE: Volumetric scanning of the abdomen and pelvis was performed. Using automated exposure control and ad justment of the mA and/or kV according to patient size, radiation dose was kept as low as reasonably achievable to obtain optimal diagnostic quality images. FINDINGS: LOWER LUNGS: Moderate bilateral pleural effusions and bibasilar consolidation. LIVER: Homogeneous density without lesion. There is no dilation of the biliary tree. No calcified gallsto anjana. Hepatic low densities are seen likely benign. Small amount of abdominal ascites. SPLEEN: Normal size without lesion. PANCREAS: Extensive inflammatory changes with fluid in the peripancreatic region. Normal enhancing pancreatic p arenchyma is not seen. KIDNEYS: Normal in size and shape. There is no mass, stone or hydronephrosis. ADRENAL GLANDS: Within normal limits. VASCULAR: There is no aortic aneurysm. BOWEL/MESENTERY: The stomach, small bowel, and colon demonstrate no acute abnormality. There is no free intraperitone al air or fluid. ABDOMINAL WALL: Within normal limits. RETROPERITONEUM: There is no lymphadenopathy. BLADDER: No wall thickening or mass. REPRODUCTIVE: Within normal limits. INGUINAL: There is no lymphadenopathy or hernia. MUSCULOSKELETAL: Within normal limits for patient age. CONCLUSION: 1. Acute pancreatitis with necrotic pancreas and extensive esequiel-pancreatic fluid/phlegmon reaction. 2. Small amount of ascites. 3. Moderate bilateral pleural effusions and bibasilar atelectasis. 4. Benign-appearing hepatic low densities. Kashmir Hunter MD on April 26, 2016 at 13:46 Board Certified Radiologist. This report was verified electronically.
--- NOTE | 2016-04-26 15:02 | HHI.PR ---
Subjective Subjective Notes CT scan concern for necrotic pancreatitis, +fever, wbc improving, tbili trending up, pt on bipap Objective Vitals/I&O Vital Signs Date Time Temp Pulse Resp B/P Pulse Ox O2 Delivery O2 Flow Rate FiO2 04/26/16 08:00 Bi-Pap 80 04/26/16 07:21 94 04/26/16 06:00 103 04/26/16 04:00 99.2 24 105/60 04/25/16 07:38 15.00 Labs Laboratory Tests Test 04/25/16 04/26/16 17:00 06:04 Potassium Level 3.2 4.1 White Blood Count 7.6 Red Blood Count 3.26 Hemoglobin 10.3 Hematocrit 29.8 Mean Corpuscular Volume 91.5 Mean Corpuscular Hemoglobin 31.7 Mean Corpuscular Hemoglobin 34.7 Concent Red Cell Distribution Width 14.4 Platelet Count 118 Mean Platelet Volume 8.2 Neutrophils (%) (Auto) 79.5 Lymphocytes (%) (Auto) 12.0 Monocytes (%) (Auto) 7.8 Eosinophils (%) (Auto) 0.6 Basophils (%) (Auto) 0.1 Neutrophils # (Auto) 6.1 Lymphocytes # (Auto) 0.9 Monocytes # (Auto) 0.6 Eosinophils # (Auto) 0.0 Basophils # (Auto) 0.0 CBC Comment DIFF FINAL Differential Comment Sodium Level 141 Chloride Level 105 Carbon Dioxide Level 29.8 Anion Gap 6 Blood Urea Nitrogen 14 Creatinine 0.81 Estimat Glomerular Filtration 70 Rate Random Glucose 188 Calcium Level 8.0 Phosphorus Level 0.8 Magnesium Level 2.1 Total Bilirubin 15.2 Aspartate Amino Transf 60 (AST/SGOT) Alanine Aminotransferase 37 (ALT/SGPT) Alkaline Phosphatase 25 Total Protein 4.9 Albumin 1.8 Lipase 530 Date/Time Procedure Status Source Growth 04/25/16 04:32 Aerobic Blood Culture - Preliminary Resulted Blood Peripheral NO GROWTH IN 1 DAY 04/25/16 04:32 Anaerobic Blood Culture - Preliminary Resulted Blood Peripheral NO GROWTH IN 1 DAY 04/24/16 21:10 Urine Culture - Final Complete Urine Catheterized Urine NO GROWTH IN 48 HOURS. Lungs: Upper airway course sound Abdomen: Other (soft mild distension diffuse tenderness, no rebound) A/P Assessment and Plan gallstone pancreatitis, Jehovah witness PLAN significant pancreatitis, gallstones, CT with worsen inflammation, failure of pancreatic enhancement. no evidence of air or infected pancreatitis at this time. Will continue to observe. If infected necrosis develops then pt may need operation, but continue non operative mgnt for now continue aggressive medical support. elective cholecystectomy when improved Vini Giordano MD Apr 26, 2016 15:02
--- NOTE | 2016-04-26 16:36 | RADRPT ---
EXAM DATE/TIME: 04/26/2016 16:17 [facility] COMPARISON: CHEST SINGLE AP, April 26, 2016, 7:09. CT THORAX W CONTRAST, April 26, 2016, 12:34. INDICATIONS : Post thoracentesis right side MEDICAL HISTORY : Pancreatitis. SURGICAL HISTORY : thoracentesis ENCOUNTER: Initial ACUITY: 1 day PAIN SCORE: 0/10 LOCATION: Right chest FINDINGS: Portable upright expiratory view of the chest demonstrates no pneumothorax following recent right tho racentesis. The right pleural effusion is no longer visualized. Left pleural effusion with associated compressive atelectasis remains present. No pneumothorax is seen. Bones and soft tissues demonstrate no acute finding. CONCLUSION: No pneumothorax is visualized following recent right thoracentesis. The right pleural effusion appear s completely resolved. Left pleural effusion remains present. Nayan Esteves MD on April 26, 2016 at 16:33 Board Certified Radiologist. This report was verified electronically.
--- NOTE | 2016-04-26 16:51 | RADRPT ---
EXAM DATE/TIME: 04/26/2016 15:11 [facility] COMPARISON: No previous studies available for comparison. INDICATIONS : Right pleural effusion. MEDICAL HISTORY : Hypercholesterolemia. Hypertension. Arthritis. SURGICAL HISTORY : Endoscopy. Colonoscopy. ENCOUNTER: Initial ACUITY: 1 day PAIN SCORE: 0/10 LOCATION: Right chest FLUID: Total volume of 350 cc of Dark brown fluid was removed. Fluid was sent to lab for ordered studies. TECHNIQUE: 1. Ultrasound guidance for thoracentesis. 2. Thoracentesis. The risks, benefits, and alternatives to ultrasound guided thoracentesis were explained to the patien t in lay simple terms, including the risk of bleeding and infection. Written and verbal informed con sent was obtained. Appropriate area for thoracentesis was marked under ultrasound guidance with the patient in the uprig ht position. Overlying skin was prepped and draped in the usual sterile fashion and with local anest hetic, a dermatotomy was made with an 11 blade scalpel. A 6 Czech thoracentesis catheter was placed in the pleural space and fluid was removed. Catheter was then removed and a sterile dressing applie d. There were no immediate complications. The patient tolerated the procedure well and the left the ultrasound suite in stable condition. Chest radiograph is to be obtained. CONCLUSION: Uncomplicated ultrasound guided thoracentesis with removal of 350 cc of dark brown fluid. Nayan Esteves MD on April 26, 2016 at 16:49 Board Certified Radiologist. This report was verified electronically.
[2016-04-26 17:26] LABS: TOTAL PROTEIN,PLEURAL FLUID 2.2 GM/DL
[2016-04-26] MEDS: ACETAMINOPHEN 325 MG TAB PO PRN (17:29)
[2016-04-26] MEDS: LEVOFLOXACIN 750 MG PREMIX INJ 150 ML IV SCH (17:30)
[2016-04-26 18:10] LABS: POTASSIUM 3.3 MEQ/L (3.5-5.1)
[2016-04-26] MEDS: POTASSIUM PHOSPHATE INJ 30 MMOL in SODIUM CHLOR 0.9% 250 ML INJ 250 ML IV PRN (20:12)
[2016-04-26 20:46] LABS: PLEURAL FLUID LYMPHS 0 %; PLEURAL FLUID PH 8.5
[2016-04-27] VITALS (14 sets, daily range): BP systolic 114–139; BP diastolic 57–73; PULSE 78–93; RESP 20–24; TEMP 98.5–100.6; O2SAT 92–96
[2016-04-27] MEDS: MORPHINE SULFATE 4 MG/ML INJ IV PUSH PRN ×8 (00:36→23:45)
[2016-04-27] MEDS: PIPERACIL-TAZO 4.5 GM PREMIX 100 ML IV SCH ×3 (01:55→14:10)
[2016-04-27] MEDS: INSULIN NovoLIN REGULAR SUPPLEMENTAL SCALE SQ SCH ×4 (01:55→21:00)
[2016-04-27] MEDS: CHLORHEXIDINE GLUCONATE 2 % 1 PACK (2 CLOTHS) TOP SCH (02:15)
[2016-04-27] MEDS: VANCOMYCIN INJ 1,500 MG in SODIUM CHLORID 0.9% 500 ML INJ 500 ML IV SCH ×2 (02:15→21:31)
[2016-04-27 04:32] LABS: BASOPHIL % 0.5 % (0.0-2.0); EOSINOPHIL # 0.2 TH/MM3 (0-0.4); EOSINOPHIL % 1.9 % (0.0-4.0); HEMATOCRIT 28.3 % (35.0-46.0); HEMO FLAGS DIFF FINAL; LYMPH % 9.8 % (9.0-44.0); LYMPHOCYTE # 0.9 TH/MM3 (1.0-4.8); MEAN CELL VOLUME 91.4 FL (80.0-100.0); MEAN CORPUSCULAR HEMOGLOBIN 31.7 PG (27.0-34.0); MEAN CORPUSCULAR HGB CONC 34.7 % (32.0-36.0); MONO % 8.7 % (0.0-8.0); NEUT % 79.1 % (16.0-70.0); PLATELET COUNT 132 TH/MM3 (150-450); RED CELL DISTRIBUTION WIDTH 14.6 % (11.6-17.2); WHITE BLOOD COUNT 8.8 TH/MM3 (4.0-11.0)
[2016-04-27 04:55] LABS: ALKALINE PHOSPHATASE 31 U/L (45-117); ALT (GPT) 36 U/L (10-53)
[2016-04-27 05:09] LABS: ANION GAP 9 MEQ/L (5-15); AST (GOT) 53 U/L (15-37); BICARBONATE 30.8 MEQ/L (21.0-32.0); BLOOD UREA NITROGEN 12 MG/DL (7-18); CHLORIDE 99 MEQ/L (98-107); GLOMERULAR FILTRATION RATE 73 ML/MIN (>89); POTASSIUM 3.4 MEQ/L (3.5-5.1); SODIUM (NA) 139 MEQ/L (136-145)
[2016-04-27 05:14] LABS: MAGNESIUM 2.1 MG/DL (1.5-2.5)
[2016-04-27] MEDS: POTASSIUM PHOSPHATE INJ 30 MMOL in SODIUM CHLOR 0.9% 250 ML INJ 250 ML IV PRN (06:11)
[2016-04-27] MEDS: PANTOPRAZOLE SODIUM 40 MG VIAL IV SCH (09:00)
--- NOTE | 2016-04-27 09:54 | HHI.GIFU ---
GI Follow-up Note Consult Follow-up Subjective: Patient states abdominal pain much improved. No nausea but does feel SOB. Objective: PHYSICAL EXAMINATION: Vitals signs stable O2 sat 94% No fever HEENT: icteric CHEST: Mild labored breathing ABDOMEN: Soft, mild distention but soft and relatively nontender. SKIN: warm and dry ENVIRONMENTAL ISSUES INSTRUCTOR: alert and oriented times three. Available Data (labs, X- Rays, Procedues) : T.Bili down a little to 14, lipase now normal. Renal fx good and diuresing well. Pleural fluid gram stain neg. Cultures neg so far. ASSESSMENT/PLAN: 1. Acute necrotizing gallstone pancreatitis. MRCP neg for CBD stones. Overall I see improvement but need to watch pulmonary fx and for infections. She drinks water easily so I think can start clear liquids and if does well advance to full liquids, eventually add liquid supplements. It was a pleasure seeing Mary Araujo. Thank you for this consult. Entered by: Jac Fierro MD Apr 27, 2016 09:54
[2016-04-27] MEDS: DILTIAZEM HCL 60 MG TAB PO SCH ×4 (11:58→19:25)
[2016-04-27] MEDS: ENOXAPARIN SODIUM 40 MG/0.4 ML SYRINGE SQ SCH (12:02)
--- NOTE | 2016-04-27 12:31 | HHI.CCPN ---
Subjective Remarks/Hospital Course The patient is 70-year-old female with a past medical history of arthritis who presented to [facility] ED with complaint of diffuse abdominal pain associated with intractable nausea and vomiting. She denies any diarrhea or constipation. In addition, the patient denies any constitutional symptoms, chest pain or shortness of breath. She has had abdominal pain for several weeks in the past and was seen by Kirti FARMER and underwent endoscopy, colonoscopy and a gallbladder ultrasound which showed gallstones within the gallbladder and inflammation. It was recommended that she undergo a cholecystectomy. However, the patient refused and wanted to try homeopathic treatment. On arrival to the ED, the patient was tachycardic with a heart rate of 101 to 108. Her laboratory data significant for a leukocytosis with a WBC of 20.7 and lactic acidosis with a lactic acid level of 5.9. Furthermore, the patient was found to have significant elevated lipase level at 25,378 and elevated liver enzymes with AST of 156 and ALT 147 with a total bilirubin of 1.0. She had a CT scan of the abdomen and pelvis which showed findings consistent with acute pancreatitis in addition to possible cholecystitis. She subsequently underwent an MRCP which showed acute pancreatitis with extensive phlegmon reaction and ascites throughout the upper abdomen and evidence of cholelithiasis. In the emergency department, she was given morphine for pain and currently receiving third liter of crystalloids. The patient also was given Zosyn. She was seen by Dr. Stern from GI and Dr. Giordano from surgery and plan to continue with medical management for now until her acute pancreatitis resolves. The patient is a nondrinker. 04/23 Patient sates her abd pain somewhat better since last night received additional 2L boluses of NS lactic acid 5.8 this morning. WBC 10 from 20 this morning 04/24 No acute events overnight. Lactic acid and Lipase levels trending down. Afebrile. 04/25 Patient is on NRB mask with good sats. SPked fever with T: 101.8 last night pancultured and Vancomycin was added. Lipase trending down. 04/26 Patient was placed on BIPAP 02/24 with FIO2 80% , T:101.0 last night. Given Bumex 1mg x1 yesterday with good UO. Patient states her breathing and abd pain is better. 04/27: Patient remains on BiPAP 80% FiO2 overnight. Breathing comfortably. CT of the chest abdomen pelvis on 04/27/16 showed moderate bilateral pleural effusion and worsening necrotizing pancreatitis. Extensive peripancreatic fluid /phlegmon. Right pleural effusion drained yesterday with 350 mL of dark brown fluid removed Objective Vital Signs Date Time Temp Pulse Resp B/P Pulse Ox O2 Delivery O2 Flow Rate FiO2 04/27/16 07:55 93 Partial Rebreather 15.00 04/27/16 06:00 85 04/27/16 04:10 80 04/27/16 04:00 98.9 24 114/57 Intake and Output 04/26/16 04/26/16 04/27/16 08:00 16:00 00:00 Intake Total 607 ml 1525 ml 630 ml Output Total 750 ml 3450 ml 725 ml Balance -143 ml -1925 ml -95 ml Result Diagram: 04/27/16 0307 04/27/16 0307 Other Results Microbiology Date/Time Procedure Status Source Growth 04/24/16 21:10 Urine Culture - Final Complete Urine Catheterized Urine NO GROWTH IN 48 HOURS. Imaging Last Impressions Chest X-Ray 04/25/16 0000 Signed Impressions: Service Date/Time: Monday, April 25, 2016 11:37 - CONCLUSION: Congestive failure with bilateral pleural effusion, stable in the interval. Nate Mckenzie MD FACR Abdomen/Pelvis CT 04/22/16 1059 Signed Impressions: Service Date/Time: Friday, April 22, 2016 11:18 - CONCLUSION: 1. Findings consistent with what looks like acute pancreatitis. Cholecystitis is a consideration as well. 2. Trace free fluid is evident. Nate Mckenzie MD FACR Liver Ultrasound 04/22/16 0000 Signed Impressions: Service Date/Time: Friday, April 22, 2016 15:09 - CONCLUSION: 1. Although there is gallbladder wall thickening and pericholecystic fluid the gallbladder is not distended nor do I identify any stones or sludge. MRCP is more sensitive for detecting small stones. 2. Trace amount ascites. Rene Mosqueda Jr., MD Cholangiopancreatography MRI 04/22/16 0000 Signed Impressions: Service Date/Time: Friday, April 22, 2016 13:57 - CONCLUSION: Acute pancreatitis with extensive phlegmon reaction and ascites throughout the upper abdomen. There is evidence of cholelithiasis. Kashmir Hunter MD Objective Remarks GENERAL: Patient is lying in bed on BIPAP SKIN: Warm and dry. HEAD: Normocephalic. EYES: No scleral icterus. No injection or drainage. NECK: Supple, trachea midline. No JVD or lymphadenopathy. CARDIOVASCULAR: Tachycardic without murmurs, gallops, or rubs. RESPIRATORY: Breath sounds equal bilaterally.Few coarse BS GASTROINTESTINAL: Abdomen soft, mild tenderness on palpation. No guarding MUSCULOSKELETAL: No cyanosis, or edema. Neuro: Awake and alert. No focal deficits Urinary Catheter: Yes Assessment to: Continue A/P Assessment and Plan Sepsis. Acute necrotizing pancreatitis Extensive peripancreatic fluid/phlegmon Acute hypoxemic respiratory failure Moderate bilateral pleural effusion Cholelithiasis. Lactic acidemia. Leukocytosis..trending down Elevated LFT's trending down Hypertension Hyperlipidemia Hyperglycemia secondary to critical illness Plan Neuro: Monitor neuro status and avoid sedatives. Morphine 2 mg IV q. 2 hours p.r.n. for pain. Pulm: Bronchodilators. NIPPV. On 80% FiO2 check ABG If any worsening in resp status will proceed with intubation CT chest bilateral pleural effusion, bibasilar consolidation probably compressive atelectasis s/p US guided right thoracentesis with removal 350 ml pleural fluid. Pleural fluid studies consistent with exudative effusion Plan for L thoracentesis CV: On Cardizem 60mg QID-Monitor HR and BP keep MAP>65 mmHg. Echo showed EF 65-70% Lactic acidosis resolved. : Monitor renal function. Electrolyte replacement per protocol. GI: Start clear liquid diet per GI. On Protonix 40 mg IV for GI prophylaxis. Monitor LFTs and lipase level ( trending down). GI and general surgery are following. Repeat CT abd/pelvis with IV contrast today showed acute pancreatitis with necrosis and inflammation. Discussed with Surgery Dr. Giordano continue medical management for now . Discussed with GI. 3/3 MRCP: Acute pancreatitis with extensive phlegmon reaction and ascites throughout the upper abdomen. There is evidence of cholelithiasis. 3/3 US Liver: Although there is gallbladder wall thickening and pericholecystic fluid the gallbladder is not distended, no stones or sludge. 3/3 CT abdomen: Findings consistent with acute pancreatitis. Cholecystitis is a consideration as well. For possible lap kim once her acute pancreatitis resolves. ID: Continue with abx per ID (Vanco, Levaquin, Zosyn) and monitor for signs of infections(fever and WBC) Follow up on blood, sputum cultures. Heme: Monitor CBC. Endo:SSI medium scale for glycemic control GI prophylaxis with Protonix 40 mg daily and DVT prophylaxis with SCDs/Lovenox 40mg daily. CCT 32 Stacey Spicer MD Apr 27, 2016 12:31
--- NOTE | 2016-04-27 12:33 | HHI.IDPN ---
Note Infectious Disease Note Patient remains on NRFM. Awake. Received pain meds for abdominal pain. Temp lower. CT of abdomen noted. PAST MEDICAL HISTORY 1. Arthritis. 2. Gallbladder disease. ALLERGIES SULFA. MEDICATIONS 1. Vancomycin. 2. Piperacillin / Tazobactam. SOCIAL HISTORY No tobacco use. Occasional alcohol. No illicit drugs. FAMILY HISTORY Noncontributory. OBJECTIVE: Vital Signs Date Time Temp Pulse Resp B/P Pulse Ox O2 Delivery O2 Flow Rate FiO2 04/27/16 07:55 93 Partial Rebreather 15.00 04/27/16 06:00 85 04/27/16 04:10 95 80 04/27/16 04:00 Bi-Pap 80 04/27/16 04:00 98.9 78 24 114/57 95 04/27/16 04:00 78 04/27/16 02:27 96 80 04/27/16 02:00 86 04/27/16 00:20 94 80 04/27/16 00:00 93 04/27/16 00:00 Bi-Pap 80 04/27/16 00:00 99.0 93 20 117/73 94 04/26/16 22:00 90 04/26/16 20:00 Non-Rebreather 04/26/16 20:00 98.1 104 22 132/67 90 04/26/16 20:00 98.1 104 22 132/67 90 04/26/16 20:00 104 04/26/16 19:29 96 Non-Rebreather 15.00 04/26/16 17:55 95 Non-Rebreather 100 04/26/16 16:00 100.0 96 28 128/65 93 04/26/16 16:00 Non-Rebreather 100 04/26/16 15:34 99.8 91 22 129/67 98 04/26/16 15:00 93 Non-Rebreather 100 04/26/16 04/26/16 04/27/16 15:00 23:00 07:00 Intake Total 1525 ml 630 ml 600 ml Output Total 3450 ml 725 ml 975 ml Balance -1925 ml -95 ml -375 ml Intake Oral 420 ml 240 ml 50 ml IV Total 1105 ml 390 ml 550 ml Output Urine Total 3450 ml 725 ml 975 ml # Bowel Movements 0 0 0 Laboratory Tests Test 04/26/16 04/27/16 06:04 03:07 White Blood Count 7.6 TH/MM3 8.8 TH/MM3 Red Blood Count 3.26 MIL/MM3 3.10 MIL/MM3 Hemoglobin 10.3 GM/DL 9.8 GM/DL Hematocrit 29.8 % 28.3 % Mean Corpuscular Volume 91.5 FL 91.4 FL Mean Corpuscular Hemoglobin 31.7 PG 31.7 PG Mean Corpuscular Hemoglobin 34.7 % 34.7 % Concent Red Cell Distribution Width 14.4 % 14.6 % Platelet Count 118 TH/MM3 132 TH/MM3 Mean Platelet Volume 8.2 FL 8.3 FL Neutrophils (%) (Auto) 79.5 % 79.1 % Lymphocytes (%) (Auto) 12.0 % 9.8 % Monocytes (%) (Auto) 7.8 % 8.7 % Eosinophils (%) (Auto) 0.6 % 1.9 % Basophils (%) (Auto) 0.1 % 0.5 % Neutrophils # (Auto) 6.1 TH/MM3 7.0 TH/MM3 Lymphocytes # (Auto) 0.9 TH/MM3 0.9 TH/MM3 Monocytes # (Auto) 0.6 TH/MM3 0.8 TH/MM3 Eosinophils # (Auto) 0.0 TH/MM3 0.2 TH/MM3 Basophils # (Auto) 0.0 TH/MM3 0.0 TH/MM3 CBC Comment DIFF FINAL DIFF FINAL Differential Comment Laboratory Tests Test 04/25/16 04/26/16 04/26/16 04/27/16 17:00 06:04 17:33 03:07 Potassium Level 3.2 MEQ/L 4.1 MEQ/L 3.3 MEQ/L 3.4 MEQ/L Sodium Level 141 MEQ/L 139 MEQ/L Chloride Level 105 MEQ/L 99 MEQ/L Carbon Dioxide Level 29.8 MEQ/L 30.8 MEQ/L Anion Gap 6 MEQ/L 9 MEQ/L Blood Urea Nitrogen 14 MG/DL 12 MG/DL Creatinine 0.81 MG/DL 0.78 MG/DL Estimat Glomerular Filtration 70 ML/MIN 73 ML/MIN Rate Random Glucose 188 MG/DL 104 MG/DL Calcium Level 8.0 MG/DL 8.2 MG/DL Phosphorus Level 0.8 MG/DL 1.7 MG/DL 2.4 MG/DL Magnesium Level 2.1 MG/DL 2.1 MG/DL Total Bilirubin 15.2 MG/DL 14.0 MG/DL Aspartate Amino Transf 60 U/L 53 U/L (AST/SGOT) Alanine Aminotransferase 37 U/L 36 U/L (ALT/SGPT) Alkaline Phosphatase 25 U/L 31 U/L Total Protein 4.9 GM/DL 5.0 GM/DL Albumin 1.8 GM/DL 1.8 GM/DL Lipase 530 U/L 253 U/L Microbiology Date/Time Procedure Status Source Growth 04/24/16 21:10 Urine Culture - Final Complete Urine Catheterized Urine NO GROWTH IN 48 HOURS. 04/25/16 04:25 Aerobic Blood Culture - Preliminary Resulted Blood Peripheral NO GROWTH IN 2 DAYS 04/25/16 04:25 Anaerobic Blood Culture - Preliminary Resulted Blood Peripheral NO GROWTH IN 2 DAYS 04/25/16 04:32 Aerobic Blood Culture - Preliminary Resulted Blood Peripheral NO GROWTH IN 2 DAYS 04/25/16 04:32 Anaerobic Blood Culture - Preliminary Resulted Blood Peripheral NO GROWTH IN 2 DAYS 04/26/16 15:45 Gram Stain - Final Resulted Fluid Pleural Fluid 04/26/16 15:45 Body Fluid Culture - Preliminary Resulted Fluid Pleural Fluid NO GROWTH IN 24 HOURS. 04/26/16 15:45 Fungal Smear - Final Resulted Fluid Pleural Fluid NO FUNGAL ELEMENTS SEEN. 04/26/16 15:45 Fungal Culture Resulted Fluid Pleural Fluid Pending IMAGING: Thoracentesis Ultrasound 04/26/16 0000 Signed Impressions: Service Date/Time: Tuesday, April 26, 2016 15:11 - CONCLUSION: Uncomplicated ultrasound guided thoracentesis with removal of 350 cc of dark brown fluid. Nayan Esteves MD Chest X-Ray 04/26/16 0000 Signed Impressions: Service Date/Time: Tuesday, April 26, 2016 16:17 - CONCLUSION: No pneumothorax is visualized following recent right thoracentesis. The right pleural effusion appears completely resolved. Left pleural effusion remains present. Nayan Esteves MD Chest X-Ray 04/26/16 0000 Signed Impressions: Service Date/Time: Tuesday, April 26, 2016 07:09 - CONCLUSION: Bibasilar opacities representing pleural effusions with associated volume loss and/or consolidation. Left is slightly larger than right. These appear smaller than on yesterday's examination but may be secondary to upright positioning today versus semiupright previously. Nayan Esteves MD Chest CT 04/26/16 0000 Signed Impressions: Service Date/Time: Tuesday, April 26, 2016 12:34 - CONCLUSION: 1. Bibasilar consolidation and moderate bilateral pleural effusions. This likely represents compressive atelectasis although pneumonia cannot be excluded. 2. Minimal groundglass densities in the upper lobes are nonspecific. Kashmir Hunter MD Abdomen/Pelvis CT 04/26/16 0000 Signed Impressions: Service Date/Time: Tuesday, April 26, 2016 12:34 - CONCLUSION: 1. Acute pancreatitis with necrotic pancreas and extensive esequiel-pancreatic fluid/ phlegmon reaction. 2. Small amount of ascites. 3. Moderate bilateral pleural effusions and bibasilar atelectasis. 4. Benign-appearing hepatic low densities. Kashmir Hunter MD Chest X-Ray 04/26/16 0000 Signed Impressions: Service Date/Time: Tuesday, April 26, 2016 07:09 - CONCLUSION: Bibasilar opacities representing pleural effusions with associated volume loss and/or consolidation. Left is slightly larger than right. These appear smaller than on yesterday's examination but may be secondary to upright positioning today versus semiupright previously. Nayan Esteves MD Abdomen/Pelvis CT 04/22/16 1059 Signed Impressions: Service Date/Time: Friday, April 22, 2016 11:18 - CONCLUSION: 1. Findings consistent with what looks like acute pancreatitis. Cholecystitis is a consideration as well. 2. Trace free fluid is evident. Nate Mckenzie MD FACR Liver Ultrasound 04/22/16 0000 Signed Impressions: Service Date/Time: Friday, April 22, 2016 15:09 - CONCLUSION: 1. Although there is gallbladder wall thickening and pericholecystic fluid the gallbladder is not distended nor do I identify any stones or sludge. MRCP is more sensitive for detecting small stones. 2. Trace amount ascites. Rene Mosqueda Jr., MD Cholangiopancreatography MRI 04/22/16 0000 Signed Impressions: Service Date/Time: Friday, April 22, 2016 13:57 - CONCLUSION: Acute pancreatitis with extensive phlegmon reaction and ascites throughout the upper abdomen. There is evidence of cholelithiasis. Kashmir Hunter MD PHYSICAL EXAMINATION GENERAL: No acute distress. Awake and responsive. HEENT: (+) icterus. Oropharynx slightly dry mucosa. NECK: Supple without adenopathy or swelling. LUNGS: Decreased breath sounds bilateral. HEART: Regular S1-S2 without audible murmurs, rubs or gallops. ABDOMEN: Distended, no audible bowel sounds. Nontender on light palpation. EXTREMITIES: No clubbing or cyanosis or edema. SKIN: Jaundiced. Warm and moist and has no rash. NEUROLOGICAL: Non focal. IMPRESSION 1. Acute pancreatitis. Necrotic pancreatitis. 2. Sepsis. 3. Bilateral pleural effusions. Post drainage 04/26/16. RECOMMENDATIONS 1. Continue Vancomycin. 2. Continue piperacillin / Tazobactam. 3. Continue Levaquin. 4. Monitor the temperature. 5. Monitor clinical status. Discussed with and daughter. Bam Ly MD Apr 27, 2016 12:33
[2016-04-27 12:49] LABS: BLOOD GAS BASE EXCESS 3.2 mmol/L (-2-2); BLOOD GAS CARBOXYHEMOGLOBIN 1.6 % (0-4); BLOOD GAS HCO3 27 mmol/L (22-26); BLOOD GAS METHEMOGLOBIN 1.2 % (0-2); BLOOD GAS O2 HGB SATURATION 92 % (90-100); BLOOD GAS OXYGEN CONTENT 12.9 Vol % (12.0-20.0); BLOOD GAS PCO2 38 mmHg (38-42); BLOOD GAS PO2 68 mmHg (61-120); CRITICAL VALUE NO; LITER FLOW 15 L/M; TEMP CORR TO 98.6
[2016-04-27 12:50] LABS: DRAW SITE LT RADIAL; NUMBER OF ARTERIAL PUNCTURES 1; STAT YES; ULNAR PULSE PRESENT
[2016-04-27] MEDS: ACETAMINOPHEN 325 MG TAB PO PRN (16:27)
[2016-04-27] MEDS ORDERED: ASP: Necrotizing pancreatitis XX PRN (16:45)
[2016-04-27] MEDS ORDERED: MISCELLANEOUS PHARMACY INFORMATION XX PRN ×2 (16:45)
--- NOTE | 2016-04-27 17:38 | HHI.PR ---
Subjective Subjective Notes pt continues to improve, no fevers lipase 253 Objective Vitals/I&O Vital Signs Date Time Temp Pulse Resp B/P Pulse Ox O2 Delivery O2 Flow Rate FiO2 04/27/16 16:00 Partial Non-Rebreather 15.00 04/27/16 16:00 100.6 85 24 139/64 92 04/27/16 04:10 80 Labs Laboratory Tests Test 04/27/16 04/27/16 03:07 12:36 White Blood Count 8.8 Red Blood Count 3.10 Hemoglobin 9.8 Hematocrit 28.3 Mean Corpuscular Volume 91.4 Mean Corpuscular Hemoglobin 31.7 Mean Corpuscular Hemoglobin 34.7 Concent Red Cell Distribution Width 14.6 Platelet Count 132 Mean Platelet Volume 8.3 Neutrophils (%) (Auto) 79.1 Lymphocytes (%) (Auto) 9.8 Monocytes (%) (Auto) 8.7 Eosinophils (%) (Auto) 1.9 Basophils (%) (Auto) 0.5 Neutrophils # (Auto) 7.0 Lymphocytes # (Auto) 0.9 Monocytes # (Auto) 0.8 Eosinophils # (Auto) 0.2 Basophils # (Auto) 0.0 CBC Comment DIFF FINAL Differential Comment Sodium Level 139 Potassium Level 3.4 Chloride Level 99 Carbon Dioxide Level 30.8 Anion Gap 9 Blood Urea Nitrogen 12 Creatinine 0.78 Estimat Glomerular Filtration 73 Rate Random Glucose 104 Calcium Level 8.2 Phosphorus Level 2.4 Magnesium Level 2.1 Total Bilirubin 14.0 Aspartate Amino Transf 53 (AST/SGOT) Alanine Aminotransferase 36 (ALT/SGPT) Alkaline Phosphatase 31 Total Protein 5.0 Albumin 1.8 Lipase 253 Blood Gas Puncture Site LT RADIAL Blood Gas Patient Temperature 98.6 Blood Gas HCO3 27 Blood Gas Base Excess 3.2 Blood Gas Oxygen Saturation 92 Arterial Blood pH 7.46 Arterial Blood Partial 38 Pressure CO2 Arterial Blood Partial 68 Pressure O2 Arterial Blood Oxygen Content 12.9 Arterial Blood 1.6 Carboxyhemoglobin Arterial Blood Methemoglobin 1.2 Blood Gas Hemoglobin 10.0 Oxygen Delivery Device Partial Rebreather Blood Gas Liter Flow 15 Date/Time Procedure Status Source Growth 04/26/16 15:45 Gram Stain - Final Resulted Fluid Pleural Fluid 04/26/16 15:45 Body Fluid Culture - Preliminary Resulted Fluid Pleural Fluid NO GROWTH IN 24 HOURS. 04/26/16 15:45 Fungal Smear - Final Resulted Fluid Pleural Fluid NO FUNGAL ELEMENTS SEEN. 04/26/16 15:45 Fungal Culture Resulted Fluid Pleural Fluid Pending 04/25/16 04:32 Aerobic Blood Culture - Preliminary Resulted Blood Peripheral NO GROWTH IN 2 DAYS 04/25/16 04:32 Anaerobic Blood Culture - Preliminary Resulted Blood Peripheral NO GROWTH IN 2 DAYS 04/24/16 21:10 Urine Culture - Final Complete Urine Catheterized Urine NO GROWTH IN 48 HOURS. Cardiovascular: Regular Lungs: Clear Abdomen: Other (soft mild ttp diffuse) A/P Assessment and Plan gallstone pancreatitis, Jehovah witness PLAN significant pancreatitis, gallstones, CT with worsen inflammation, failure of pancreatic enhancement. no evidence of air or infected pancreatitis at this time. Will continue to observe. If infected necrosis develops then pt may need operation, but continue non operative mgnt for now continue aggressive medical support. elective cholecystectomy when improved will consider cholecystostomy tube as an alternative pending hospital course Vini Giordano MD Apr 27, 2016 17:38
[2016-04-27] MEDS: IMIPENEM/CILASTATIN INJ 500 MG in SODIUM CHLORIDE 0.9% INJ 100 ML IV SCH ×2 (18:00→23:45)
[2016-04-27] MEDS: MICAFUNGIN INJ 100 MG in SODIUM CHLORIDE 0.9% INJ 100 ML IV SCH (18:14)
[2016-04-28] VITALS (15 sets, daily range): BP systolic 102–132; BP diastolic 56–64; PULSE 74–95; RESP 21–26; TEMP 98.8–99.7; O2SAT 90–93
[2016-04-28] MEDS: MORPHINE SULFATE 4 MG/ML INJ IV PUSH PRN ×5 (01:15→19:50)
[2016-04-28] MEDS: INSULIN NovoLIN REGULAR SUPPLEMENTAL SCALE SQ SCH ×4 (03:00→20:09)
[2016-04-28] MEDS: CHLORHEXIDINE GLUCONATE 2 % 1 PACK (2 CLOTHS) TOP SCH (03:42)
[2016-04-28] MEDS: IMIPENEM/CILASTATIN INJ 500 MG in SODIUM CHLORIDE 0.9% INJ 100 ML IV SCH ×3 (05:02→18:22)
--- NOTE | 2016-04-28 08:26 | HHI.CCPN ---
Subjective Remarks/Hospital Course The patient is 70-year-old female with a past medical history of arthritis who presented to [facility] ED with complaint of diffuse abdominal pain associated with intractable nausea and vomiting. She denies any diarrhea or constipation. In addition, the patient denies any constitutional symptoms, chest pain or shortness of breath. She has had abdominal pain for several weeks in the past and was seen by Kirti FARMER and underwent endoscopy, colonoscopy and a gallbladder ultrasound which showed gallstones within the gallbladder and inflammation. It was recommended that she undergo a cholecystectomy. However, the patient refused and wanted to try homeopathic treatment. On arrival to the ED, the patient was tachycardic with a heart rate of 101 to 108. Her laboratory data significant for a leukocytosis with a WBC of 20.7 and lactic acidosis with a lactic acid level of 5.9. Furthermore, the patient was found to have significant elevated lipase level at 25,378 and elevated liver enzymes with AST of 156 and ALT 147 with a total bilirubin of 1.0. She had a CT scan of the abdomen and pelvis which showed findings consistent with acute pancreatitis in addition to possible cholecystitis. She subsequently underwent an MRCP which showed acute pancreatitis with extensive phlegmon reaction and ascites throughout the upper abdomen and evidence of cholelithiasis. In the emergency department, she was given morphine for pain and currently receiving third liter of crystalloids. The patient also was given Zosyn. She was seen by Dr. Stern from GI and Dr. Giordano from surgery and plan to continue with medical management for now until her acute pancreatitis resolves. The patient is a nondrinker. 04/23 Patient sates her abd pain somewhat better since last night received additional 2L boluses of NS lactic acid 5.8 this morning. WBC 10 from 20 this morning 04/24 No acute events overnight. Lactic acid and Lipase levels trending down. Afebrile. 04/25 Patient is on NRB mask with good sats. SPked fever with T: 101.8 last night pancultured and Vancomycin was added. Lipase trending down. 04/26 Patient was placed on BIPAP 02/24 with FIO2 80% , T:101.0 last night. Given Bumex 1mg x1 yesterday with good UO. Patient states her breathing and abd pain is better. 04/27: Patient remains on BiPAP 80% FiO2 overnight. Breathing comfortably. CT of the chest abdomen pelvis on 04/27/16 showed moderate bilateral pleural effusion and worsening necrotizing pancreatitis. Extensive peripancreatic fluid /phlegmon. Right pleural effusion drained yesterday with 350 mL of dark brown fluid removed 04/28: Remains on partial nonrebreather. Bedside ultrasound shows small to moderate effusion on the left side, not large enough to drain. Physical therapy consulted. We'll attempt high flow oxygen today Objective Vital Signs Date Time Temp Pulse Resp B/P Pulse Ox O2 Delivery O2 Flow Rate FiO2 04/28/16 06:00 77 04/28/16 04:00 99.2 24 111/56 92 04/28/16 04:00 Partial Non-Rebreather 15.00 04/27/16 04:10 80 Intake and Output 04/27/16 04/27/16 04/28/16 08:00 16:00 00:00 Intake Total 600 ml 1350 ml 830 ml Output Total 975 ml 1000 ml 1000 ml Balance -375 ml 350 ml -170 ml Result Diagram: 04/27/16 0307 04/27/162012 Other Results Laboratory Tests Test 04/27/16 12:36 Blood Gas Puncture Site LT RADIAL Blood Gas Patient Temperature 98.6 Blood Gas HCO3 27 mmol/L (22-26) Blood Gas Base Excess 3.2 mmol/L (-2-2) Blood Gas Oxygen Saturation 92 % (90-100) Arterial Blood pH 7.46 (7.380-7.420) Arterial Blood Partial 38 mmHg (38-42) Pressure CO2 Arterial Blood Partial 68 mmHg Pressure O2 (61-120) Arterial Blood Oxygen Content 12.9 Vol % (12.0-20.0) Arterial Blood 1.6 % (0-4) Carboxyhemoglobin Arterial Blood Methemoglobin 1.2 % (0-2) Blood Gas Hemoglobin 10.0 G/DL (12.0-16.0) Oxygen Delivery Device Partial Rebreather Blood Gas Liter Flow 15 L/M Imaging Last Impressions Chest X-Ray 04/25/16 0000 Signed Impressions: Service Date/Time: Monday, April 25, 2016 11:37 - CONCLUSION: Congestive failure with bilateral pleural effusion, stable in the interval. Nate Mckenzie MD FACR Abdomen/Pelvis CT 04/22/16 1059 Signed Impressions: Service Date/Time: Friday, April 22, 2016 11:18 - CONCLUSION: 1. Findings consistent with what looks like acute pancreatitis. Cholecystitis is a consideration as well. 2. Trace free fluid is evident. Nate Mckenzie MD FACR Liver Ultrasound 04/22/16 0000 Signed Impressions: Service Date/Time: Friday, April 22, 2016 15:09 - CONCLUSION: 1. Although there is gallbladder wall thickening and pericholecystic fluid the gallbladder is not distended nor do I identify any stones or sludge. MRCP is more sensitive for detecting small stones. 2. Trace amount ascites. Rene Mosqueda Jr., MD Cholangiopancreatography MRI 04/22/16 0000 Signed Impressions: Service Date/Time: Friday, April 22, 2016 13:57 - CONCLUSION: Acute pancreatitis with extensive phlegmon reaction and ascites throughout the upper abdomen. There is evidence of cholelithiasis. Kashmir Hunter MD Objective Remarks GENERAL: Patient is lying in bed on pNRB SKIN: Warm and dry. HEAD: Normocephalic. EYES: No scleral icterus. No injection or drainage. NECK: Supple, trachea midline. No JVD or lymphadenopathy. CARDIOVASCULAR: S1-S2 normal no murmurs, gallops, or rubs. RESPIRATORY: Breath sounds equal bilaterally. Few coarse BS. Bedside ultrasound shows left small to moderate pleural effusion GASTROINTESTINAL: Abdomen soft, mild tenderness on palpation. No guarding MUSCULOSKELETAL: No cyanosis, or edema. Neuro: Awake and alert. No focal deficits Urinary Catheter: Yes Assessment to: Continue A/P Assessment and Plan ASSESSMENT Acute necrotizing pancreatitis Extensive peripancreatic fluid/phlegmon Sepsis Acute hypoxemic respiratory failure Moderate bilateral pleural effusion Cholelithiasis Lactic acidemia Leukocytosis-resolved Elevated LFT's trending down Hypertension Hyperlipidemia Hyperglycemia secondary to critical illness PLAN: Neuro: Monitor neuro status and avoid sedatives. Morphine 2 mg IV q. 2 hours p.r.n. for pain. Pulm: Bronchodilators. NIPPV PRN. Currently on partial nonrebreather, attempt high flow oxygen keep saturation more than 90% If any worsening in resp status will proceed with intubation s/p US guided right thoracentesis with removal 350 ml pleural fluid. Pleural fluid studies consistent with exudative effusion-cultures, gram stain negative, unfortunately cytology was not sent Left pleural effusion not large enough to tap CV: On Cardizem 60mg QID-Monitor HR and BP keep MAP>65 mmHg. Echo showed EF 65-70% Lactic acidosis resolved. : Monitor renal function. Electrolyte replacement per protocol. Bumex 1 mg IV x1 GI: Clear liquid diet per GI, advance diet per GI. On Protonix 40 mg IV for GI prophylaxis. Monitor LFTs and lipase level ( trending down). GI and general surgery are following. Dr. Sepulveda discussed with Surgery Dr. Giordano continue medical management for now . Discussed with GI. 04/22 MRCP: Acute pancreatitis with extensive phlegmon reaction and ascites throughout the upper abdomen. There is evidence of cholelithiasis. 04/22 US Liver: Although there is gallbladder wall thickening and pericholecystic fluid the gallbladder is not distended, no stones or sludge. 04/22 CT abdomen: Findings consistent with acute pancreatitis. Cholecystitis is a consideration as well. 04/27 CT of the chest abdomen pelvis on 04/27/16 showed moderate bilateral pleural effusion and worsening necrotizing pancreatitis. Extensive peripancreatic fluid/phlegmon. For possible lap kim once her acute pancreatitis resolves. ID: Continue with abx per ID (Vanco, Levaquin, Zosyn) and monitor for signs of infections(fever and WBC) Follow up on blood, sputum cultures. Heme: Monitor CBC. Endo: SSI medium scale for glycemic control GI prophylaxis with Protonix 40 mg daily and DVT prophylaxis with SCDs/Lovenox 40mg daily. Level 3 PT consulted, OOB Up to [facility] chair Stacey Spicer MD Apr 28, 2016 08:26
[2016-04-28] MEDS ORDERED: BUMETANIDE INJ 1 MG/4 ML VIAL IV PUSH ONE (08:30)
--- NOTE | 2016-04-28 08:49 | RADRPT ---
EXAM DATE/TIME: 04/28/2016 08:06 [facility] COMPARISON: CHEST EXPIRATION ONLY, April 26, 2016, 16:17. CHEST SINGLE AP, April 26, 2016, 7:09. INDICATIONS : Short of breath and lower chest pain. MEDICAL HISTORY : Pancreatitis. Hypertension SURGICAL HISTORY : None. ENCOUNTER: Initial ACUITY: 1 day PAIN SCORE: 9/10 LOCATION: Left lower chest FINDINGS: A single view of the chest demonstrates a persistent small to moderate left pleural effusion with lef t basilar airspace disease. On the right side there is stable right basilar airspace disease and prob able slight reaccumulation of right pleural fluid. There is no pneumothorax. Heart size upper limits normal. CONCLUSION: 1. Stable small to moderate left pleural effusion with basilar airspace disease. 2. Slight reaccumulation of right pleural fluid since April 26. No pneumothorax. Isaiah Sparks MD on April 28, 2016 at 8:45 Board Certified Radiologist. This report was verified electronically.
[2016-04-28] MEDS ORDERED: POTASSIUM CHLORIDE 10 MEQ CONTROLLED RELEASE TAB PO ONE (09:00)
[2016-04-28] MEDS: PANTOPRAZOLE SODIUM 40 MG VIAL IV SCH (09:08)
[2016-04-28] MEDS: DILTIAZEM HCL 60 MG TAB PO SCH ×4 (09:08→19:53)
[2016-04-28 11:00] LABS: ALKALINE PHOSPHATASE 46 U/L (45-117); ALT (GPT) 53 U/L (10-53); ANION GAP 9 MEQ/L (5-15); AST (GOT) 76 U/L (15-37); CHLORIDE 95 MEQ/L (98-107); GLOMERULAR FILTRATION RATE 72 ML/MIN (>89); MAGNESIUM 2.2 MG/DL (1.5-2.5); POTASSIUM 3.5 MEQ/L (3.5-5.1); SODIUM (NA) 134 MEQ/L (136-145); TOTAL BILIRUBIN ADULT 15.4 MG/DL (0.2-1.0)
--- NOTE | 2016-04-28 11:01 | HHI.GIFU ---
GI Follow-up Note Consult Follow-up Subjective: Patient states she feels better but abdomen more distended. Denies nausea and enjoyed oral liquids. Abd pain better. Breathing better, now on O2 by NC. Objective: PHYSICAL EXAMINATION: Vitals signs stable No fever Tm=99 ABDOMEN: Soft, more distended with hypoactive BS but very little tenderness. EXTREMITIES: no cyanosis SKIN: warm and dry SITE MANAGER: alert and oriented times three. Available Data (labs, X- Rays, Procedues) : ASSESSMENT/PLAN: 1. Acute necrotizing pancreatitis-today's chemistry labs pending. Abd distention could be fluid or developing ileus. Will check KUB. If no ileus can advance diet to full liquids. It was a pleasure seeing Mary Araujo. Thank you for this consult. Entered by: Jac Fierro MD Apr 28, 2016 11:01
--- NOTE | 2016-04-28 11:34 | RADRPT ---
EXAM DATE/TIME: 04/28/2016 11:13 [facility] COMPARISON: CT ABDOMEN & PELVIS W CONTRAST, April 26, 2016, 12:34. INDICATIONS : Pancreatitis, abdomen distended MEDICAL HISTORY : Pancreatitis. Hypertension SURGICAL HISTORY : None. ENCOUNTER: Initial ACUITY: 1 day PAIN SCORE: 3/10 LOCATION: Abdomen FINDINGS: Supine view of the abdomen was performed. There is mild gaseous distention of small and large bowel. No obstruction. No free air. CONCLUSION: 1. Mild gaseous distention of bowel. No obstruction or free air. Isaiah Sparks MD on April 28, 2016 at 11:30 Board Certified Radiologist. This report was verified electronically.
[2016-04-28 11:42] LABS: BLOOD UREA NITROGEN 11 MG/DL (7-18)
--- NOTE | 2016-04-28 12:17 | HHI.IDPN ---
Note Infectious Disease Note Patient is now on nasal canula. 6L O2. Was called by RN last evening for increased temp. Antibiotic changes was made and blood cultures obtained. Now awake. Notes she was a little disoriented. Feels gas pain in the abdomen. Afebrile. PAST MEDICAL HISTORY 1. Arthritis. 2. Gallbladder disease. ALLERGIES SULFA. MEDICATIONS 1. Vancomycin. 2. Imipenem. SOCIAL HISTORY No tobacco use. Occasional alcohol. No illicit drugs. FAMILY HISTORY Noncontributory. OBJECTIVE: Vital Signs Date Time Temp Pulse Resp B/P Pulse Ox O2 Delivery O2 Flow Rate FiO2 04/28/16 10:00 94 04/28/16 09:32 93 Nasal Cannula 6.00 04/28/16 08:00 Partial Non-Rebreather 15.00 04/28/16 08:00 74 04/28/16 08:00 98.8 82 26 119/58 91 04/28/16 06:00 77 04/28/16 04:00 78 04/28/16 04:00 99.2 78 24 111/56 92 04/28/16 04:00 Partial Non-Rebreather 15.00 04/28/16 02:00 80 04/28/16 00:00 Partial Non-Rebreather 15.00 04/28/16 00:00 95 04/28/16 00:00 99.7 95 22 102/63 93 04/27/16 22:00 88 04/27/16 20:00 Partial Non-Rebreather 15.00 04/27/16 20:00 87 04/27/16 20:00 99.9 87 20 117/61 93 04/27/16 19:20 94 Partial Rebreather 12.00 04/27/16 16:00 Partial Non-Rebreather 15.00 04/27/16 16:00 100.6 85 24 139/64 92 04/27/16 04/27/16 04/28/16 15:00 23:00 07:00 Intake Total 1350 ml 830 ml 725 ml Output Total 1000 ml 1000 ml 850 ml Balance 350 ml -170 ml -125 ml Intake Oral 750 ml 480 ml 100 ml IV Total 600 ml 350 ml 625 ml Output Urine Total 1000 ml 1000 ml 850 ml # Bowel Movements 0 0 0 Laboratory Tests Test 04/27/16 03:07 White Blood Count 8.8 TH/MM3 Red Blood Count 3.10 MIL/MM3 Hemoglobin 9.8 GM/DL Hematocrit 28.3 % Mean Corpuscular Volume 91.4 FL Mean Corpuscular Hemoglobin 31.7 PG Mean Corpuscular Hemoglobin 34.7 % Concent Red Cell Distribution Width 14.6 % Platelet Count 132 TH/MM3 Mean Platelet Volume 8.3 FL Neutrophils (%) (Auto) 79.1 % Lymphocytes (%) (Auto) 9.8 % Monocytes (%) (Auto) 8.7 % Eosinophils (%) (Auto) 1.9 % Basophils (%) (Auto) 0.5 % Neutrophils # (Auto) 7.0 TH/MM3 Lymphocytes # (Auto) 0.9 TH/MM3 Monocytes # (Auto) 0.8 TH/MM3 Eosinophils # (Auto) 0.2 TH/MM3 Basophils # (Auto) 0.0 TH/MM3 CBC Comment DIFF FINAL Differential Comment Laboratory Tests Test 04/26/16 04/27/16 04/27/16 04/28/16 17:33 03:07 20:13 09:58 Potassium Level 3.3 MEQ/L 3.4 MEQ/L 3.5 MEQ/L 3.5 MEQ/L Phosphorus Level 1.7 MG/DL 2.4 MG/DL 2.0 MG/DL Sodium Level 139 MEQ/L 134 MEQ/L Chloride Level 99 MEQ/L 95 MEQ/L Carbon Dioxide Level 30.8 MEQ/L 30.0 MEQ/L Anion Gap 9 MEQ/L 9 MEQ/L Blood Urea Nitrogen 12 MG/DL 11 MG/DL Creatinine 0.78 MG/DL 0.79 MG/DL Estimat Glomerular Filtration 73 ML/MIN 72 ML/MIN Rate Random Glucose 104 MG/DL 146 MG/DL Calcium Level 8.2 MG/DL 8.2 MG/DL Magnesium Level 2.1 MG/DL 2.2 MG/DL Total Bilirubin 14.0 MG/DL 15.4 MG/DL Aspartate Amino Transf 53 U/L 76 U/L (AST/SGOT) Alanine Aminotransferase 36 U/L 53 U/L (ALT/SGPT) Alkaline Phosphatase 31 U/L 46 U/L Total Protein 5.0 GM/DL 5.6 GM/DL Albumin 1.8 GM/DL 1.9 GM/DL Lipase 253 U/L Microbiology Date/Time Procedure Status Source Growth 04/26/16 15:45 Gram Stain - Final Resulted Fluid Pleural Fluid 04/26/16 15:45 Body Fluid Culture - Preliminary Resulted Fluid Pleural Fluid NO GROWTH IN 48 HOURS. 04/26/16 15:45 Fungal Smear - Final Resulted Fluid Pleural Fluid NO FUNGAL ELEMENTS SEEN. 04/26/16 15:45 Fungal Culture Resulted Fluid Pleural Fluid Pending 04/27/16 19:15 Aerobic Blood Culture - Preliminary Resulted Blood Peripheral NO GROWTH IN 1 DAY 04/27/16 19:15 Anaerobic Blood Culture - Preliminary Resulted Blood Peripheral NO GROWTH IN 1 DAY 04/27/16 19:26 Aerobic Blood Culture - Preliminary Resulted Blood Peripheral NO GROWTH IN 1 DAY 04/27/16 19:26 Anaerobic Blood Culture - Preliminary Resulted Blood Peripheral NO GROWTH IN 1 DAY IMAGING: Chest X-Ray 04/28/16 0000 Signed Impressions: Service Date/Time: April 08:06 - CONCLUSION: 1. Stable small to moderate left pleural effusion with basilar airspace disease. 2. Slight reaccumulation of right pleural fluid since April 26. No pneumothorax. Isaiah Sparks MD Abdomen X-Ray 04/28/16 0000 Signed Impressions: Service Date/Time: April 11:13 - CONCLUSION: 1. Mild gaseous distention of bowel. No obstruction or free air. Isaiah Sparks MD Thoracentesis Ultrasound 04/26/16 0000 Signed Impressions: Service Date/Time: Tuesday, April 26, 2016 15:11 - CONCLUSION: Uncomplicated ultrasound guided thoracentesis with removal of 350 cc of dark brown fluid. Nayan Esteves MD Chest X-Ray 04/26/16 0000 Signed Impressions: Service Date/Time: Tuesday, April 26, 2016 16:17 - CONCLUSION: No pneumothorax is visualized following recent right thoracentesis. The right pleural effusion appears completely resolved. Left pleural effusion remains present. Nayan Esteves MD Chest X-Ray 04/26/16 0000 Signed Impressions: Service Date/Time: Tuesday, April 26, 2016 07:09 - CONCLUSION: Bibasilar opacities representing pleural effusions with associated volume loss and/or consolidation. Left is slightly larger than right. These appear smaller than on yesterday's examination but may be secondary to upright positioning today versus semiupright previously. Nayan Esteves MD Chest CT 04/26/16 0000 Signed Impressions: Service Date/Time: Tuesday, April 26, 2016 12:34 - CONCLUSION: 1. Bibasilar consolidation and moderate bilateral pleural effusions. This likely represents compressive atelectasis although pneumonia cannot be excluded. 2. Minimal groundglass densities in the upper lobes are nonspecific. Kashmir Hunter MD Abdomen/Pelvis CT 04/26/16 0000 Signed Impressions: Service Date/Time: Tuesday, April 26, 2016 12:34 - CONCLUSION: 1. Acute pancreatitis with necrotic pancreas and extensive esequiel-pancreatic fluid/ phlegmon reaction. 2. Small amount of ascites. 3. Moderate bilateral pleural effusions and bibasilar atelectasis. 4. Benign-appearing hepatic low densities. Kashmir Hunter MD Chest X-Ray 04/26/16 0000 Signed Impressions: Service Date/Time: Tuesday, April 26, 2016 07:09 - CONCLUSION: Bibasilar opacities representing pleural effusions with associated volume loss and/or consolidation. Left is slightly larger than right. These appear smaller than on yesterday's examination but may be secondary to upright positioning today versus semiupright previously. Nayan Esteves MD Abdomen/Pelvis CT 04/22/16 1059 Signed Impressions: Service Date/Time: Friday, April 22, 2016 11:18 - CONCLUSION: 1. Findings consistent with what looks like acute pancreatitis. Cholecystitis is a consideration as well. 2. Trace free fluid is evident. Nate Mckenzie MD FACR Liver Ultrasound 04/22/16 0000 Signed Impressions: Service Date/Time: Friday, April 22, 2016 15:09 - CONCLUSION: 1. Although there is gallbladder wall thickening and pericholecystic fluid the gallbladder is not distended nor do I identify any stones or sludge. MRCP is more sensitive for detecting small stones. 2. Trace amount ascites. Rene Mosqueda Jr., MD Cholangiopancreatography MRI 04/22/16 0000 Signed Impressions: Service Date/Time: Friday, April 22, 2016 13:57 - CONCLUSION: Acute pancreatitis with extensive phlegmon reaction and ascites throughout the upper abdomen. There is evidence of cholelithiasis. Kashmir Hunter MD PHYSICAL EXAMINATION GENERAL: Patient in no acute distress. Awake and responsive. HEENT: (+) icterus. Oropharynx slightly dry mucosa. NECK: Supple. No adenopathy or swelling. LUNGS: Decreased breath sounds bilateral. HEART: Regular S1-S2 without audible murmurs, rubs or gallops. ABDOMEN: Distended, Decreased bowel sounds. Nontender on light palpation. EXTREMITIES: No clubbing or cyanosis or edema. SKIN: Jaundiced. Warm and moist and has no rash. NEUROLOGICAL: Non focal. IMPRESSION 1. Acute pancreatitis. Necrotic pancreatitis. 2. Sepsis. Intermittent fever. 3. Bilateral pleural effusions. Post drainage 04/26/16. RECOMMENDATIONS 1. Continue Vancomycin. 2. Continue Imipenem. 3. Monitor the temperature. 4. Follow blood cultures. 5. Monitor clinical status. Discussed with and daughter and RN. Bam Ly MD Apr 28, 2016 12:17
--- NOTE | 2016-04-28 14:04 | HHI.PR ---
Subjective Subjective Notes stable overnight, still with O2 requirements, no fevers, no bm Objective Vitals/I&O Vital Signs Date Time Temp Pulse Resp B/P Pulse Ox O2 Delivery O2 Flow Rate FiO2 04/28/16 12:00 89 04/28/16 12:00 99.2 24 132/64 92 04/28/16 12:00 Nasal Cannula 6.00 04/27/16 04:10 80 Labs Laboratory Tests Test 04/27/16 04/28/16 20:13 09:58 Potassium Level 3.5 3.5 Phosphorus Level 2.0 2.1 Sodium Level 134 Chloride Level 95 Carbon Dioxide Level 30.0 Anion Gap 9 Blood Urea Nitrogen 11 Creatinine 0.79 Estimat Glomerular Filtration 72 Rate Random Glucose 146 Calcium Level 8.2 Magnesium Level 2.2 Total Bilirubin 15.4 Aspartate Amino Transf 76 (AST/SGOT) Alanine Aminotransferase 53 (ALT/SGPT) Alkaline Phosphatase 46 Total Protein 5.6 Albumin 1.9 Date/Time Procedure Status Source Growth 04/27/16 19:26 Aerobic Blood Culture - Preliminary Resulted Blood Peripheral NO GROWTH IN 1 DAY 04/27/16 19:26 Anaerobic Blood Culture - Preliminary Resulted Blood Peripheral NO GROWTH IN 1 DAY 04/26/16 15:45 Gram Stain - Final Resulted Fluid Pleural Fluid 04/26/16 15:45 Body Fluid Culture - Preliminary Resulted Fluid Pleural Fluid NO GROWTH IN 48 HOURS. 04/26/16 15:45 Fungal Smear - Final Resulted Fluid Pleural Fluid NO FUNGAL ELEMENTS SEEN. 04/26/16 15:45 Fungal Culture Resulted Fluid Pleural Fluid Pending 04/24/16 21:10 Urine Culture - Final Complete Urine Catheterized Urine NO GROWTH IN 48 HOURS. Cardiovascular: Regular Lungs: Clear Abdomen: Other (soft distended, diffuse tenderness, no rebound) A/P Assessment and Plan gallstone pancreatitis, Jehovah witness PLAN significant pancreatitis, gallstones, CT with worsen inflammation, failure of pancreatic enhancement. no evidence of air or infected pancreatitis at this time. Will continue to observe. If infected necrosis develops then pt may need operation, but continue non operative mgnt for now continue aggressive medical support. elective cholecystectomy when improved will consider cholecystostomy tube vs abx as an alternative pending hospital course recommend bowel regimen/suppository for constipation Vini Giordano MD Apr 28, 2016 14:04
[2016-04-28] MEDS: SODIUM PHOSPHATE INJ 30 MMOL in SODIUM CHLOR 0.9% 250 ML INJ 240 ML IV PRN (14:25)
[2016-04-28] MEDS ORDERED: PHARMACY ORDERED LAB XX ONE (15:45)
[2016-04-28] MEDS: VANCOMYCIN INJ 1,500 MG in SODIUM CHLORID 0.9% 500 ML INJ 500 ML IV SCH (15:46)
[2016-04-28] MEDS: MICAFUNGIN INJ 100 MG in SODIUM CHLORIDE 0.9% INJ 100 ML IV SCH (18:27)
[2016-04-29] VITALS (14 sets, daily range): BP systolic 116–140; BP diastolic 56–78; PULSE 72–95; RESP 18–22; TEMP 98.7–99.9; O2SAT 90–92
[2016-04-29] MEDS: INSULIN NovoLIN REGULAR SUPPLEMENTAL SCALE SQ SCH ×4 (02:21→19:46)
[2016-04-29] MEDS: MORPHINE SULFATE 4 MG/ML INJ IV PUSH PRN ×6 (02:21→18:29)
[2016-04-29] MEDS: IMIPENEM/CILASTATIN INJ 500 MG in SODIUM CHLORIDE 0.9% INJ 100 ML IV SCH ×5 (02:21→23:20)
[2016-04-29] MEDS: CHLORHEXIDINE GLUCONATE 2 % 1 PACK (2 CLOTHS) TOP SCH (04:00)
[2016-04-29] MEDS: VANCOMYCIN INJ 1,250 MG in SODIUM CHLOR 0.9% 250 ML INJ 250 ML IV SCH ×2 (04:47→15:18)
[2016-04-29 07:25] LABS: AUTOMATED NEUTROPHIL # 12.4 TH/MM3 (1.8-7.7); BASOPHIL % 0.2 % (0.0-2.0); EOSINOPHIL # 0.2 TH/MM3 (0-0.4); EOSINOPHIL % 1.1 % (0.0-4.0); HEMATOCRIT 29.3 % (35.0-46.0); LYMPH % 6.6 % (9.0-44.0); LYMPHOCYTE # 0.9 TH/MM3 (1.0-4.8); MEAN CELL VOLUME 90.6 FL (80.0-100.0); MEAN CORPUSCULAR HEMOGLOBIN 30.7 PG (27.0-34.0); MEAN CORPUSCULAR HGB CONC 33.9 % (32.0-36.0); MONO % 5.4 % (0.0-8.0); NEUT % 86.7 % (16.0-70.0); PLATELET COUNT 224 TH/MM3 (150-450); RED BLOOD COUNT 3.23 MIL/MM3 (4.00-5.30); RED CELL DISTRIBUTION WIDTH 14.7 % (11.6-17.2); WHITE BLOOD COUNT 14.3 TH/MM3 (4.0-11.0)
--- NOTE | 2016-04-29 07:27 | HHI.CCPN ---
Subjective Remarks/Hospital Course The patient is 70-year-old female with a past medical history of arthritis who presented to [facility] ED with complaint of diffuse abdominal pain associated with intractable nausea and vomiting. She denies any diarrhea or constipation. In addition, the patient denies any constitutional symptoms, chest pain or shortness of breath. She has had abdominal pain for several weeks in the past and was seen by Kirti FARMER and underwent endoscopy, colonoscopy and a gallbladder ultrasound which showed gallstones within the gallbladder and inflammation. It was recommended that she undergo a cholecystectomy. However, the patient refused and wanted to try homeopathic treatment. On arrival to the ED, the patient was tachycardic with a heart rate of 101 to 108. Her laboratory data significant for a leukocytosis with a WBC of 20.7 and lactic acidosis with a lactic acid level of 5.9. Furthermore, the patient was found to have significant elevated lipase level at 25,378 and elevated liver enzymes with AST of 156 and ALT 147 with a total bilirubin of 1.0. She had a CT scan of the abdomen and pelvis which showed findings consistent with acute pancreatitis in addition to possible cholecystitis. She subsequently underwent an MRCP which showed acute pancreatitis with extensive phlegmon reaction and ascites throughout the upper abdomen and evidence of cholelithiasis. In the emergency department, she was given morphine for pain and currently receiving third liter of crystalloids. The patient also was given Zosyn. She was seen by Dr. Stern from GI and Dr. Giordano from surgery and plan to continue with medical management for now until her acute pancreatitis resolves. The patient is a nondrinker. 04/23 Patient sates her abd pain somewhat better since last night received additional 2L boluses of NS lactic acid 5.8 this morning. WBC 10 from 20 this morning 04/24 No acute events overnight. Lactic acid and Lipase levels trending down. Afebrile. 04/25 Patient is on NRB mask with good sats. SPked fever with T: 101.8 last night pancultured and Vancomycin was added. Lipase trending down. 04/26 Patient was placed on BIPAP 02/24 with FIO2 80% , T:101.0 last night. Given Bumex 1mg x1 yesterday with good UO. Patient states her breathing and abd pain is better. 04/27: Patient remains on BiPAP 80% FiO2 overnight. Breathing comfortably. CT of the chest abdomen pelvis on 04/27/16 showed moderate bilateral pleural effusion and worsening necrotizing pancreatitis. Extensive peripancreatic fluid /phlegmon. Right pleural effusion drained yesterday with 350 mL of dark brown fluid removed 04/28: Remains on partial nonrebreather. Bedside ultrasound shows small to moderate effusion on the left side, not large enough to drain. Physical therapy consulted. We'll attempt high flow oxygen today 04/29 No acute events overnight. Patient is on high flow oxygen with 70% FIO2. Afebrile. Objective Vital Signs Date Time Temp Pulse Resp B/P Pulse Ox O2 Delivery O2 Flow Rate FiO2 04/29/16 06:00 81 04/29/16 04:00 99.0 20 124/57 92 04/28/16 20:53 High Flow Nasal Cannula 25.00 70 Intake and Output 04/28/16 04/28/16 04/29/16 08:00 16:00 00:00 Intake Total 725 ml 1175 ml 945 ml Output Total 850 ml 1825 ml 1400 ml Balance -125 ml -650 ml -455 ml Result Diagram: 04/27/16 0307 04/28/16 0958 Other Results Laboratory Tests Test 04/28/16 04/28/16 09:58 15:30 Sodium Level 134 MEQ/L Potassium Level 3.5 MEQ/L Chloride Level 95 MEQ/L Carbon Dioxide Level 30.0 MEQ/L Anion Gap 9 MEQ/L Blood Urea Nitrogen 11 MG/DL Creatinine 0.79 MG/DL Estimat Glomerular Filtration 72 ML/MIN Rate Random Glucose 146 MG/DL Calcium Level 8.2 MG/DL Phosphorus Level 2.1 MG/DL Magnesium Level 2.2 MG/DL Total Bilirubin 15.4 MG/DL Aspartate Amino Transf 76 U/L (AST/SGOT) Alanine Aminotransferase 53 U/L (ALT/SGPT) Alkaline Phosphatase 46 U/L Total Protein 5.6 GM/DL Albumin 1.9 GM/DL Vancomycin Level Trough 12.2 MCG/ML Imaging Last Impressions Chest X-Ray 04/28/16 0000 Signed Impressions: Service Date/Time: April 08:06 - CONCLUSION: 1. Stable small to moderate left pleural effusion with basilar airspace disease. 2. Slight reaccumulation of right pleural fluid since April 26. No pneumothorax. Isaiah Sparks MD Abdomen X-Ray 04/28/16 Signed Impressions: Service Date/Time: April 11:13 - CONCLUSION: 1. Mild gaseous distention of bowel. No obstruction or free air. Isaiah Sparks MD Thoracentesis Ultrasound 04/26/16 Signed Impressions: Service Date/Time: Tuesday, April 26, 2016 15:11 - CONCLUSION: Uncomplicated ultrasound guided thoracentesis with removal of 350 cc of dark brown fluid. Nayan Esteves MD Chest CT 04/26/16 Signed Impressions: Service Date/Time: Tuesday, April 26, 2016 12:34 - CONCLUSION: 1. Bibasilar consolidation and moderate bilateral pleural effusions. This likely represents compressive atelectasis although pneumonia cannot be excluded. 2. Minimal groundglass densities in the upper lobes are nonspecific. Kashmir Hunter MD Abdomen/Pelvis CT 04/26/16 Signed Impressions: Service Date/Time: Tuesday, April 26, 2016 12:34 - CONCLUSION: 1. Acute pancreatitis with necrotic pancreas and extensive esequiel-pancreatic fluid/ phlegmon reaction. 2. Small amount of ascites. 3. Moderate bilateral pleural effusions and bibasilar atelectasis. 4. Benign-appearing hepatic low densities. Kashmir Hunter MD Liver Ultrasound 04/22/16 Signed Impressions: Service Date/Time: Friday, April 22, 2016 15:09 - CONCLUSION: 1. Although there is gallbladder wall thickening and pericholecystic fluid the gallbladder is not distended nor do I identify any stones or sludge. MRCP is more sensitive for detecting small stones. 2. Trace amount ascites. Rene Mosqueda Jr., MD Cholangiopancreatography MRI 04/22/16 Signed Impressions: Service Date/Time: Friday, April 22, 2016 13:57 - CONCLUSION: Acute pancreatitis with extensive phlegmon reaction and ascites throughout the upper abdomen. There is evidence of cholelithiasis. Kashmir Hunter MD Objective Remarks GENERAL: Patient is lying in bed on pNRB SKIN: Warm and dry. HEAD: Normocephalic. EYES: No scleral icterus. No injection or drainage. NECK: Supple, trachea midline. No JVD or lymphadenopathy. CARDIOVASCULAR: S1-S2 normal no murmurs, gallops, or rubs. RESPIRATORY: Breath sounds equal bilaterally. Few coarse BS. Bedside ultrasound shows left small to moderate pleural effusion GASTROINTESTINAL: Abdomen soft, mild tenderness on palpation. No guarding MUSCULOSKELETAL: No cyanosis, or edema. Neuro: Awake and alert. No focal deficits A/P Assessment and Plan ASSESSMENT Acute necrotizing pancreatitis Extensive peripancreatic fluid/phlegmon Sepsis Acute hypoxemic respiratory failure Moderate bilateral pleural effusion Cholelithiasis Lactic acidemia Leukocytosis-resolved Elevated LFT's trending down Hypertension Hyperlipidemia Hyperglycemia secondary to critical illness PLAN: Neuro: Monitor neuro status and avoid sedatives. Morphine 2 mg IV q. 2 hours p.r.n. for pain. Pulm: Wean down oxygen as zahida keep sat >92% Bronchodilators. NIPPV PRN. If any worsening in resp status will proceed with intubation s/p US guided right thoracentesis with removal 350 ml pleural fluid. Pleural fluid studies consistent with exudative effusion-cultures, gram stain negative CV: On Cardizem 60mg QID-Monitor HR and BP keep MAP>65 mmHg. Echo showed EF 65-70% Lactic acidosis resolved. : Monitor renal function. Electrolyte replacement per protocol. GI: Clear liquid diet per GI, advance diet per GI. On Protonix 40 mg IV for GI prophylaxis. Monitor LFTs and lipase level ( trending down). GI and general surgery are following. 04/22 MRCP: Acute pancreatitis with extensive phlegmon reaction and ascites throughout the upper abdomen. There is evidence of cholelithiasis. 04/22 US Liver: Although there is gallbladder wall thickening and pericholecystic fluid the gallbladder is not distended, no stones or sludge. 04/22 CT abdomen: Findings consistent with acute pancreatitis. Cholecystitis is a consideration as well. 04/27 CT of the chest abdomen pelvis on 04/27/16 showed moderate bilateral pleural effusion and worsening necrotizing pancreatitis. Extensive peripancreatic fluid/phlegmon. For possible lap kim once her acute pancreatitis resolves. ID: Continue with abx per ID (Vanco, Imipenem, Micafungin) and monitor for signs of infections(fever and WBC) Follow up on blood, sputum cultures.... NGTD Heme: Monitor CBC. Endo: SSI medium scale for glycemic control GI prophylaxis with Protonix 40 mg daily and DVT prophylaxis with SCDs/resume Lovenox 40mg daily. Level 3 Evelin Davila MD Apr 29, 2016 07:27
[2016-04-29 07:29] LABS: HEMO FLAGS AUTO DIFF
[2016-04-29 07:40] LABS: ALT (GPT) 53 U/L (10-53); ANION GAP 9 MEQ/L (5-15); AST (GOT) 64 U/L (15-37); BICARBONATE 29.8 MEQ/L (21.0-32.0); BLOOD UREA NITROGEN 9 MG/DL (7-18); CHLORIDE 97 MEQ/L (98-107); GLOMERULAR FILTRATION RATE 101 ML/MIN (>89); MAGNESIUM 2.1 MG/DL (1.5-2.5); POTASSIUM 3.4 MEQ/L (3.5-5.1); SODIUM (NA) 136 MEQ/L (136-145)
[2016-04-29 07:42] LABS: ALKALINE PHOSPHATASE 46 U/L (45-117); TOTAL BILIRUBIN ADULT 11.1 MG/DL (0.2-1.0)
[2016-04-29] MEDS: DILTIAZEM HCL 60 MG TAB PO SCH ×4 (07:59→19:43)
[2016-04-29] MEDS: PANTOPRAZOLE SODIUM 40 MG VIAL IV SCH (07:59)
[2016-04-29 09:05] LABS: BANDS 33 % (0-6); BASOPHILS 1 % (0-2); METAMYELOCYTES 1 % (0-1); NEUTROPHIL # MANUAL DIFF 12.3 TH/MM3 (1.8-7.7); POLYS (SEG NEUTROPHILS) 52 % (16-70); TOXIC VACUOLATION PRESENT (NONE SEEN); WBC DIFF SAMPLE 100
[2016-04-29 09:06] LABS: PLATELET ESTIMATE SMEAR NORMAL (NORMAL); TOXIC GRANULATION 1+ (NORMAL)
[2016-04-29 09:08] LABS: PLATELET MORPHOLOGY ENLARGED (NORMAL); SCAN/DIFF FINAL DIFF MANUAL
--- NOTE | 2016-04-29 10:15 | HHI.GIFU ---
GI Follow-up Note Consult Follow-up Subjective: Patient laying in bed comfortably and she states she feels better but has a new cough. No nausea. Abd pain improving. Objective: PHYSICAL EXAMINATION: Vitals signs stable No fever Tm=99 CHEST: Breathing non labored CARDIAC: Regular rate and rhythm. ABDOMEN: Soft, mildly distended but slightly less and no tenderness. EXTREMITIES: No clubbing, cyanosis, or edema. SKIN: warm and dry. RATER ASSOCIATE: alert and oriented times three. Available Data (labs, X- Rays, Procedues) : T.Bili improving. WBC increased with high bands. ASSESSMENT/PLAN: 1. Acute necrotizing gallstone pancreatitis- watch for infection. Suspect pulmonary source but pancreas at risk too. Will advance to full liquids and start pancreatic enzymes. It was a pleasure seeing Mary Araujo. Thank you for this consult. Entered by: Jac Fierro MD Apr 29, 2016 10:15
--- NOTE | 2016-04-29 11:28 | HHI.IDPN ---
Note Infectious Disease Note Patient is now on nasal canula. Awake and alert. Received pain medicine for abdominal pain and does not have pain now. Afebrile. PAST MEDICAL HISTORY 1. Arthritis. 2. Gallbladder disease. ALLERGIES SULFA. MEDICATIONS 1. Vancomycin. 2. Imipenem. SOCIAL HISTORY No tobacco use. Occasional alcohol. No illicit drugs. FAMILY HISTORY Noncontributory. OBJECTIVE: Vital Signs Date Time Temp Pulse Resp B/P Pulse Ox O2 Delivery O2 Flow Rate FiO2 04/29/16 08:59 92 High Flow Nasal Cannula 25.00 75 04/29/16 06:00 81 04/29/16 04:00 81 04/29/16 04:00 99.0 81 20 124/57 92 04/29/16 04:00 92 04/29/16 02:00 91 04/29/16 00:00 92 04/29/16 00:00 99.4 84 22 140/66 92 04/29/16 00:00 83 04/28/16 22:00 84 04/28/16 20:53 91 High Flow Nasal Cannula 25.00 70 04/28/16 20:00 Partial Non-Rebreather 15.00 04/28/16 20:00 99.0 89 21 125/62 91 04/28/16 20:00 89 04/28/16 19:24 90 Nasal Cannula 6.00 04/28/16 18:00 93 04/28/16 16:00 92 Nasal Cannula 6.00 04/28/16 16:00 98.9 89 24 128/60 92 04/28/16 16:00 89 04/28/16 14:00 86 04/28/16 12:00 89 04/28/16 12:00 99.2 89 24 132/64 92 04/28/16 12:00 92 Nasal Cannula 6.00 04/28/16 04/28/16 04/29/16 15:00 23:00 07:00 Intake Total 1175 ml 945 ml 690 ml Output Total 1825 ml 1400 ml 700 ml Balance -650 ml -455 ml -10 ml Intake Oral 906 ml 200 ml 240 ml IV Total 269 ml 745 ml 450 ml Output Urine Total 1825 ml 1400 ml 700 ml Stool Total 0 ml # Bowel Movements 0 0 0 Laboratory Tests Test 04/29/16 05:40 White Blood Count 14.3 TH/MM3 Red Blood Count 3.23 MIL/MM3 Hemoglobin 9.9 GM/DL Hematocrit 29.3 % Mean Corpuscular Volume 90.6 FL Mean Corpuscular Hemoglobin 30.7 PG Mean Corpuscular Hemoglobin 33.9 % Concent Red Cell Distribution Width 14.7 % Platelet Count 224 TH/MM3 Mean Platelet Volume 8.3 FL Neutrophils (%) (Auto) 86.7 % Lymphocytes (%) (Auto) 6.6 % Monocytes (%) (Auto) 5.4 % Eosinophils (%) (Auto) 1.1 % Basophils (%) (Auto) 0.2 % Neutrophils # (Auto) 12.4 TH/MM3 Lymphocytes # (Auto) 0.9 TH/MM3 Monocytes # (Auto) 0.8 TH/MM3 Eosinophils # (Auto) 0.2 TH/MM3 Basophils # (Auto) 0.0 TH/MM3 CBC Comment AUTO DIFF Differential Total Cells 100 Counted Neutrophils % (Manual) 52 % Band Neutrophils % 33 % Lymphocytes % 10 % Monocytes % 3 % Basophils % 1 % Neutrophils # (Manual) 12.3 TH/MM3 Metamyelocytes 1 % Differential Comment FINAL DIFF MANUAL Atypical Lymphocytes % Toxic Granulation 1+ Toxic Vacuolation PRESENT Platelet Estimate NORMAL Platelet Morphology Comment ENLARGED Laboratory Tests Test 04/27/16 04/28/16 04/29/16 20:13 09:58 05:40 Potassium Level 3.5 MEQ/L 3.5 MEQ/L 3.4 MEQ/L Phosphorus Level 2.0 MG/DL 2.1 MG/DL Sodium Level 134 MEQ/L 136 MEQ/L Chloride Level 95 MEQ/L 97 MEQ/L Carbon Dioxide Level 30.0 MEQ/L 29.8 MEQ/L Anion Gap 9 MEQ/L 9 MEQ/L Blood Urea Nitrogen 11 MG/DL 9 MG/DL Creatinine 0.79 MG/DL 0.59 MG/DL Estimat Glomerular Filtration 72 ML/MIN 101 ML/MIN Rate Random Glucose 146 MG/DL 156 MG/DL Calcium Level 8.2 MG/DL 7.8 MG/DL Magnesium Level 2.2 MG/DL 2.1 MG/DL Total Bilirubin 15.4 MG/DL 11.1 MG/DL Aspartate Amino Transf 76 U/L 64 U/L (AST/SGOT) Alanine Aminotransferase 53 U/L 53 U/L (ALT/SGPT) Alkaline Phosphatase 46 U/L 46 U/L Total Protein 5.6 GM/DL 5.0 GM/DL Albumin 1.9 GM/DL 1.6 GM/DL Microbiology Date/Time Procedure Status Source Growth 04/26/16 15:45 Gram Stain - Final Complete Fluid Pleural Fluid 04/26/16 15:45 Body Fluid Culture - Final Complete Fluid Pleural Fluid NO GROWTH IN 72 HRS.--AEROBICALLY OR ... 04/26/16 15:45 Fungal Smear - Final Resulted Fluid Pleural Fluid NO FUNGAL ELEMENTS SEEN. 04/26/16 15:45 Fungal Culture Resulted Fluid Pleural Fluid Pending 04/27/16 19:15 Aerobic Blood Culture - Preliminary Resulted Blood Peripheral NO GROWTH IN 2 DAYS 04/27/16 19:15 Anaerobic Blood Culture - Preliminary Resulted Blood Peripheral NO GROWTH IN 2 DAYS 04/27/16 19:26 Aerobic Blood Culture - Preliminary Resulted Blood Peripheral NO GROWTH IN 2 DAYS 04/27/16 19:26 Anaerobic Blood Culture - Preliminary Resulted Blood Peripheral NO GROWTH IN 2 DAYS IMAGING: Chest X-Ray 04/28/16 0000 Signed Impressions: Service Date/Time: April 08:06 - CONCLUSION: 1. Stable small to moderate left pleural effusion with basilar airspace disease. 2. Slight reaccumulation of right pleural fluid since April 26. No pneumothorax. Isaiah Sparks MD Abdomen X-Ray 04/28/16 0000 Signed Impressions: Service Date/Time: April 11:13 - CONCLUSION: 1. Mild gaseous distention of bowel. No obstruction or free air. Isaiah Sparks MD Thoracentesis Ultrasound 04/26/16 0000 Signed Impressions: Service Date/Time: Tuesday, April 26, 2016 15:11 - CONCLUSION: Uncomplicated ultrasound guided thoracentesis with removal of 350 cc of dark brown fluid. Nayan Esteves MD Chest X-Ray 04/26/16 0000 Signed Impressions: Service Date/Time: Tuesday, April 26, 2016 16:17 - CONCLUSION: No pneumothorax is visualized following recent right thoracentesis. The right pleural effusion appears completely resolved. Left pleural effusion remains present. Nyaan Esteves MD Chest X-Ray 04/26/16 0000 Signed Impressions: Service Date/Time: Tuesday, April 26, 2016 07:09 - CONCLUSION: Bibasilar opacities representing pleural effusions with associated volume loss and/or consolidation. Left is slightly larger than right. These appear smaller than on yesterday's examination but may be secondary to upright positioning today versus semiupright previously. Nayan Esteves MD Chest CT 04/26/16 0000 Signed Impressions: Service Date/Time: Tuesday, April 26, 2016 12:34 - CONCLUSION: 1. Bibasilar consolidation and moderate bilateral pleural effusions. This likely represents compressive atelectasis although pneumonia cannot be excluded. 2. Minimal groundglass densities in the upper lobes are nonspecific. Kashmir Hunter MD Abdomen/Pelvis CT 04/26/16 0000 Signed Impressions: Service Date/Time: Tuesday, April 26, 2016 12:34 - CONCLUSION: 1. Acute pancreatitis with necrotic pancreas and extensive esequiel-pancreatic fluid/ phlegmon reaction. 2. Small amount of ascites. 3. Moderate bilateral pleural effusions and bibasilar atelectasis. 4. Benign-appearing hepatic low densities. Kashmir Hunter MD Chest X-Ray 04/26/16 0000 Signed Impressions: Service Date/Time: Tuesday, April 26, 2016 07:09 - CONCLUSION: Bibasilar opacities representing pleural effusions with associated volume loss and/or consolidation. Left is slightly larger than right. These appear smaller than on yesterday's examination but may be secondary to upright positioning today versus semiupright previously. Nayan Esteves MD Abdomen/Pelvis CT 04/22/16 1059 Signed Impressions: Service Date/Time: Friday, April 22, 2016 11:18 - CONCLUSION: 1. Findings consistent with what looks like acute pancreatitis. Cholecystitis is a consideration as well. 2. Trace free fluid is evident. Nate Mckenzie MD FACR Liver Ultrasound 04/22/16 0000 Signed Impressions: Service Date/Time: Friday, April 22, 2016 15:09 - CONCLUSION: 1. Although there is gallbladder wall thickening and pericholecystic fluid the gallbladder is not distended nor do I identify any stones or sludge. MRCP is more sensitive for detecting small stones. 2. Trace amount ascites. Rene Mosqueda Jr., MD Cholangiopancreatography MRI 04/22/16 0000 Signed Impressions: Service Date/Time: Friday, April 22, 2016 13:57 - CONCLUSION: Acute pancreatitis with extensive phlegmon reaction and ascites throughout the upper abdomen. There is evidence of cholelithiasis. Kashmir Hunter MD PHYSICAL EXAMINATION GENERAL: Patient in no acute distress. Awake and responsive. HEENT: (+) icterus. Oropharynx slightly dry mucosa. NECK: Supple. No adenopathy or swelling. LUNGS: Decreased breath sounds and slight basilar rhonchi. HEART: Regular S1-S2 without audible murmurs, rubs or gallops. ABDOMEN: Distended, No bowel sounds. Nontender on light palpation. EXTREMITIES: No clubbing or cyanosis or edema. SKIN: Jaundiced. Warm and moist and has no rash. NEUROLOGICAL: Non focal. IMPRESSION 1. Acute pancreatitis. Necrotic pancreatitis. 2. Sepsis. Intermittent fever. Temp lower. 3. Bilateral pleural effusions. Post drainage 04/26/16. 4. Leukocytosis. RECOMMENDATIONS 1. Continue Vancomycin. 2. Continue Imipenem. 3. Monitor the temperature. 4. Follow blood cultures. 5. Monitor WBC. Bam Ly MD Apr 29, 2016 11:28
[2016-04-29] MEDS ORDERED: POTASSIUM CHLORIDE 20 MEQ CONTROLLED RELEASE TAB PO ONE (12:00)
[2016-04-29] MEDS: LIPASE/PROTEASE/AMYLASE (24,000/76,000/120,000) CAP PO SCH ×2 (13:31→17:40)
--- NOTE | 2016-04-29 16:50 | HHI.PR ---
Subjective Subjective Notes remains on o2, tolerating liquids, no fevers Objective Vitals/I&O Vital Signs Date Time Temp Pulse Resp B/P Pulse Ox O2 Delivery O2 Flow Rate FiO2 04/29/16 16:00 80 04/29/16 12:00 99.3 18 119/78 91 04/29/16 12:00 Partial Non-Rebreather 25.00 75 Labs Laboratory Tests Test 04/29/16 05:40 White Blood Count 14.3 Red Blood Count 3.23 Hemoglobin 9.9 Hematocrit 29.3 Mean Corpuscular Volume 90.6 Mean Corpuscular Hemoglobin 30.7 Mean Corpuscular Hemoglobin 33.9 Concent Red Cell Distribution Width 14.7 Platelet Count 224 Mean Platelet Volume 8.3 Neutrophils (%) (Auto) 86.7 Lymphocytes (%) (Auto) 6.6 Monocytes (%) (Auto) 5.4 Eosinophils (%) (Auto) 1.1 Basophils (%) (Auto) 0.2 Neutrophils # (Auto) 12.4 Lymphocytes # (Auto) 0.9 Monocytes # (Auto) 0.8 Eosinophils # (Auto) 0.2 Basophils # (Auto) 0.0 CBC Comment AUTO DIFF Differential Total Cells 100 Counted Neutrophils % (Manual) 52 Band Neutrophils % 33 Lymphocytes % 10 Monocytes % 3 Basophils % 1 Neutrophils # (Manual) 12.3 Metamyelocytes 1 Differential Comment FINAL DIFF MANUAL Atypical Lymphocytes Toxic Granulation 1+ Toxic Vacuolation PRESENT Platelet Estimate NORMAL Platelet Morphology Comment ENLARGED Sodium Level 136 Potassium Level 3.4 Chloride Level 97 Carbon Dioxide Level 29.8 Anion Gap 9 Blood Urea Nitrogen 9 Creatinine 0.59 Estimat Glomerular Filtration 101 Rate Random Glucose 156 Calcium Level 7.8 Magnesium Level 2.1 Total Bilirubin 11.1 Aspartate Amino Transf 64 (AST/SGOT) Alanine Aminotransferase 53 (ALT/SGPT) Alkaline Phosphatase 46 Total Protein 5.0 Albumin 1.6 Date/Time Procedure Status Source Growth 04/27/16 19:26 Aerobic Blood Culture - Preliminary Resulted Blood Peripheral NO GROWTH IN 2 DAYS 04/27/16 19:26 Anaerobic Blood Culture - Preliminary Resulted Blood Peripheral NO GROWTH IN 2 DAYS 04/26/16 15:45 Gram Stain - Final Complete Fluid Pleural Fluid 04/26/16 15:45 Body Fluid Culture - Final Complete Fluid Pleural Fluid NO GROWTH IN 72 HRS.--AEROBICALLY OR ... 04/26/16 15:45 Fungal Smear - Final Resulted Fluid Pleural Fluid NO FUNGAL ELEMENTS SEEN. 04/26/16 15:45 Fungal Culture Resulted Fluid Pleural Fluid Pending 04/24/16 21:10 Urine Culture - Final Complete Urine Catheterized Urine NO GROWTH IN 48 HOURS. Abdomen: Other (soft distended, mild ttp) A/P Assessment and Plan gallstone pancreatitis, Jehovah witness PLAN significant pancreatitis, gallstones, CT with worsen inflammation, failure of pancreatic enhancement. no evidence of air or infected pancreatitis at this time. Will continue to observe. If infected necrosis develops then pt may need operation, but continue non operative mgnt for now continue aggressive medical support will consider cholecystostomy tube vs abx as an alternative pending hospital course recommend bowel regimen/suppository for constipation Vini Giordano MD Apr 29, 2016 16:50
[2016-04-29] MEDS: MICAFUNGIN INJ 100 MG in SODIUM CHLORIDE 0.9% INJ 100 ML IV SCH (17:43)
[2016-04-30] VITALS (14 sets, daily range): BP systolic 115–135; BP diastolic 58–66; PULSE 70–95; RESP 16–23; TEMP 98.4–99.3; O2SAT 90–99
[2016-04-30] MEDS: VANCOMYCIN INJ 1,250 MG in SODIUM CHLOR 0.9% 250 ML INJ 250 ML IV SCH ×2 (04:00→16:57)
[2016-04-30] MEDS: CHLORHEXIDINE GLUCONATE 2 % 1 PACK (2 CLOTHS) TOP SCH (04:00)
[2016-04-30 04:28] LABS: AUTOMATED NEUTROPHIL # 15.2 TH/MM3 (1.8-7.7); BASOPHIL % 0.2 % (0.0-2.0); EOSINOPHIL # 0.2 TH/MM3 (0-0.4); EOSINOPHIL % 1.1 % (0.0-4.0); HEMATOCRIT 29.7 % (35.0-46.0); MEAN CELL VOLUME 90.2 FL (80.0-100.0); MEAN CORPUSCULAR HEMOGLOBIN 30.3 PG (27.0-34.0); MEAN CORPUSCULAR HGB CONC 33.6 % (32.0-36.0); MONO % 5.2 % (0.0-8.0); NEUT % 87.5 % (16.0-70.0); PLATELET COUNT 267 TH/MM3 (150-450); RED CELL DISTRIBUTION WIDTH 14.6 % (11.6-17.2); WHITE BLOOD COUNT 17.4 TH/MM3 (4.0-11.0)
[2016-04-30 04:33] LABS: HEMO FLAGS AUTO DIFF
[2016-04-30 05:16] LABS: ALKALINE PHOSPHATASE 54 U/L (45-117); ALT (GPT) 53 U/L (10-53); GLOMERULAR FILTRATION RATE 95 ML/MIN (>89); TOTAL BILIRUBIN ADULT 9.5 MG/DL (0.2-1.0)
[2016-04-30] MEDS: IMIPENEM/CILASTATIN INJ 500 MG in SODIUM CHLORIDE 0.9% INJ 100 ML IV SCH ×2 (05:32→11:05)
[2016-04-30] MEDS: INSULIN NovoLIN REGULAR SUPPLEMENTAL SCALE SQ SCH ×4 (05:32→21:54)
[2016-04-30 06:00] LABS: ANION GAP 10 MEQ/L (5-15); AST (GOT) 66 U/L (15-37); BICARBONATE 29.6 MEQ/L (21.0-32.0); BLOOD UREA NITROGEN 8 MG/DL (7-18); CHLORIDE 98 MEQ/L (98-107); MAGNESIUM 2.2 MG/DL (1.5-2.5); POTASSIUM 3.3 MEQ/L (3.5-5.1); SODIUM (NA) 138 MEQ/L (136-145)
[2016-04-30] MEDS: MORPHINE SULFATE 4 MG/ML INJ IV PUSH PRN ×3 (06:33→18:20)
--- NOTE | 2016-04-30 08:51 | RADRPT ---
EXAM DATE/TIME: 04/30/2016 08:35 [facility] COMPARISON: CHEST SINGLE AP, April 28, 2016, 8:06. INDICATIONS : Dyspnea. MEDICAL HISTORY : Pancreatitis. Hypertension. SURGICAL HISTORY : None. ENCOUNTER: Initial ACUITY: 1 day PAIN SCORE: 0/10 LOCATION: Bilateral chest FINDINGS: The heart size is normal. There is increased density the bases bilaterally. There is silhouetting of the left hemidiaphragm. CONCLUSION: Increased density bases bilaterally representing combination of atelectasis, consolidation and effusi on. Compared to the prior exam, there has been worsening on the right. The left-sided findings are st able. Nayan Murray MD on April 30, 2016 at 8:48 Board Certified Radiologist. This report was verified electronically.
[2016-04-30] MEDS: PANTOPRAZOLE SODIUM 40 MG VIAL IV SCH (08:52)
[2016-04-30] MEDS: LIPASE/PROTEASE/AMYLASE (24,000/76,000/120,000) CAP PO SCH ×3 (08:52→16:59)
[2016-04-30] MEDS: ENOXAPARIN SODIUM 40 MG/0.4 ML SYRINGE SQ SCH (08:52)
[2016-04-30] MEDS: DILTIAZEM HCL 60 MG TAB PO SCH ×4 (08:52→21:52)
[2016-04-30] MEDS: SODIUM CHLORIDE 0.9% FLUSH 5 ML FLUSH IVF PRN (08:53)
[2016-04-30 09:16] LABS: BANDS 9 % (0-6); EOSINOPHILS 1 % (0-4); NEUTROPHIL # MANUAL DIFF 16.5 TH/MM3 (1.8-7.7); PLATELET ESTIMATE SMEAR NORMAL (NORMAL); PLATELET MORPHOLOGY NORMAL (NORMAL); POLYS (SEG NEUTROPHILS) 86 % (16-70); TARGET CELLS 1+ (NORMAL); TOXIC GRANULATION 1+ (NORMAL); WBC DIFF SAMPLE 100
[2016-04-30 09:17] LABS: SCAN/DIFF FINAL DIFF MANUAL
--- NOTE | 2016-04-30 10:38 | HHI.CCPN ---
Subjective Remarks/Hospital Course The patient is 70-year-old female with a past medical history of arthritis who presented to [facility] ED with complaint of diffuse abdominal pain associated with intractable nausea and vomiting. She denies any diarrhea or constipation. In addition, the patient denies any constitutional symptoms, chest pain or shortness of breath. She has had abdominal pain for several weeks in the past and was seen by Kirti FARMER and underwent endoscopy, colonoscopy and a gallbladder ultrasound which showed gallstones within the gallbladder and inflammation. It was recommended that she undergo a cholecystectomy. However, the patient refused and wanted to try homeopathic treatment. On arrival to the ED, the patient was tachycardic with a heart rate of 101 to 108. Her laboratory data significant for a leukocytosis with a WBC of 20.7 and lactic acidosis with a lactic acid level of 5.9. Furthermore, the patient was found to have significant elevated lipase level at 25,378 and elevated liver enzymes with AST of 156 and ALT 147 with a total bilirubin of 1.0. She had a CT scan of the abdomen and pelvis which showed findings consistent with acute pancreatitis in addition to possible cholecystitis. She subsequently underwent an MRCP which showed acute pancreatitis with extensive phlegmon reaction and ascites throughout the upper abdomen and evidence of cholelithiasis. In the emergency department, she was given morphine for pain and currently receiving third liter of crystalloids. The patient also was given Zosyn. She was seen by Dr. Stern from GI and Dr. Giordano from surgery and plan to continue with medical management for now until her acute pancreatitis resolves. The patient is a nondrinker. 04/23 Patient sates her abd pain somewhat better since last night received additional 2L boluses of NS lactic acid 5.8 this morning. WBC 10 from 20 this morning 04/24 No acute events overnight. Lactic acid and Lipase levels trending down. Afebrile. 04/25 Patient is on NRB mask with good sats. SPked fever with T: 101.8 last night pancultured and Vancomycin was added. Lipase trending down. 04/26 Patient was placed on BIPAP 02/24 with FIO2 80% , T:101.0 last night. Given Bumex 1mg x1 yesterday with good UO. Patient states her breathing and abd pain is better. 04/27: Patient remains on BiPAP 80% FiO2 overnight. Breathing comfortably. CT of the chest abdomen pelvis on 04/27/16 showed moderate bilateral pleural effusion and worsening necrotizing pancreatitis. Extensive peripancreatic fluid /phlegmon. Right pleural effusion drained yesterday with 350 mL of dark brown fluid removed 04/28: Remains on partial nonrebreather. Bedside ultrasound shows small to moderate effusion on the left side, not large enough to drain. Physical therapy consulted. We'll attempt high flow oxygen today 04/29 No acute events overnight. Patient is on high flow oxygen with 70% FIO2. Afebrile. 04/30: rash developed overnight which is itchy but nonpainful. abdominal pain relatively unchanged. per her , he says he thinks she looks better compared to yesterday. Objective Vital Signs Date Time Temp Pulse Resp B/P Pulse Ox O2 Delivery O2 Flow Rate FiO2 04/30/16 08:00 80 04/30/16 08:00 99.3 22 133/66 90 04/29/16 19:34 High Flow Nasal Cannula 25.00 70 Intake and Output 04/29/16 04/29/16 04/30/16 08:00 16:00 00:00 Intake Total 690 ml 1116 ml 804 ml Output Total 700 ml 1300 ml 600 ml Balance -10 ml -184 ml 204 ml Result Diagram: 04/30/16 0318 04/30/16 0318 Imaging Last Impressions Chest X-Ray 04/28/16 0000 Signed Impressions: Service Date/Time: April 08:06 - CONCLUSION: 1. Stable small to moderate left pleural effusion with basilar airspace disease. 2. Slight reaccumulation of right pleural fluid since April 26. No pneumothorax. Isaiah Sparks MD Abdomen X-Ray 04/28/16 0000 Signed Impressions: Service Date/Time: April 11:13 - CONCLUSION: 1. Mild gaseous distention of bowel. No obstruction or free air. Isaiah Sparks MD Thoracentesis Ultrasound 04/26/16 0000 Signed Impressions: Service Date/Time: Tuesday, April 26, 2016 15:11 - CONCLUSION: Uncomplicated ultrasound guided thoracentesis with removal of 350 cc of dark brown fluid. Nayan Esteves MD Chest CT 04/26/16 0000 Signed Impressions: Service Date/Time: Tuesday, April 26, 2016 12:34 - CONCLUSION: 1. Bibasilar consolidation and moderate bilateral pleural effusions. This likely represents compressive atelectasis although pneumonia cannot be excluded. 2. Minimal groundglass densities in the upper lobes are nonspecific. Kashmir Hunter MD Abdomen/Pelvis CT 04/26/16 0000 Signed Impressions: Service Date/Time: Tuesday, April 26, 2016 12:34 - CONCLUSION: 1. Acute pancreatitis with necrotic pancreas and extensive esequiel-pancreatic fluid/ phlegmon reaction. 2. Small amount of ascites. 3. Moderate bilateral pleural effusions and bibasilar atelectasis. 4. Benign-appearing hepatic low densities. Kashmir Hunter MD Liver Ultrasound 04/22/16 0000 Signed Impressions: Service Date/Time: Friday, April 22, 2016 15:09 - CONCLUSION: 1. Although there is gallbladder wall thickening and pericholecystic fluid the gallbladder is not distended nor do I identify any stones or sludge. MRCP is more sensitive for detecting small stones. 2. Trace amount ascites. Rene Mosqueda Jr., MD Cholangiopancreatography MRI 04/22/16 0000 Signed Impressions: Service Date/Time: Friday, April 22, 2016 13:57 - CONCLUSION: Acute pancreatitis with extensive phlegmon reaction and ascites throughout the upper abdomen. There is evidence of cholelithiasis. Kashmir Hunter MD Objective Remarks GENERAL: Patient is lying in bed on high flow NC SKIN: Warm and dry. HEAD: Normocephalic. EYES: No scleral icterus. No injection or drainage. NECK: Supple, trachea midline. No JVD or lymphadenopathy. CARDIOVASCULAR: S1-S2 normal no murmurs, gallops, or rubs. RESPIRATORY: Breath sounds equal bilaterally. Few coarse BS. GASTROINTESTINAL: Abdomen soft, mild tenderness on palpation. No guarding MUSCULOSKELETAL: No cyanosis, or edema. Neuro: Awake and alert. No focal deficits A/P Assessment and Plan Assessment: 70yF with Acute necrotizing gallstone pancreatitis, course complicated by acute hypoxic respiratory failure. Clinically, she is slowly improving, although her multiple organ dysfunction persists. Her ongoing leukocytosis is worrisome, but in the setting of her clinical condition, I do not think this is a worsening of an infectious process. I have discussed her case with GI and we will plan to cautiously advance her diet and clinically monitor her for signs of worsening clinical status. The rash appears to be a drug rash, and per ID notes, we will discontinue imipenem. PLAN: Neuro: Abdominal Pain -Monitor neuro status and avoid sedatives. -Morphine 2 mg IV q. 2 hours p.r.n. for pain. Pulm: Acute hypoxemic respiratory failure- resolving. Moderate bilateral pleural effusion -Wean down oxygen as zahida keep sat >92% -Bronchodilators. NIPPV PRN. -If any worsening in resp status will proceed with intubation -s/p US guided right thoracentesis with removal 350 ml pleural fluid. Pleural fluid studies consistent with exudative effusion-cultures, gram stain negative CV: Sepsis Lactic acidemia- resolved Hypertension Hyperlipidemia -On Cardizem 60mg QID-Monitor HR and BP keep MAP>65 mmHg. -Echo showed EF 65-70% -Lactic acidosis resolved. : Monitor renal function. Electrolyte replacement per protocol. FEN/GI: Acute necrotizing pancreatitis Extensive peripancreatic fluid/phlegmon Cholelithiasis Elevated LFT's trending down -low fat diet per GI, advance diet per GI. -On Protonix 40 mg IV for GI prophylaxis. -Monitor LFTs and lipase level ( trending down). GI and general surgery are following. -04/22 MRCP: Acute pancreatitis with extensive phlegmon reaction and ascites throughout the upper abdomen. There is evidence of cholelithiasis. -04/22 US Liver: Although there is gallbladder wall thickening and pericholecystic fluid the gallbladder is not distended, no stones or sludge. -04/22 CT abdomen: Findings consistent with acute pancreatitis. Cholecystitis is a consideration as well. -04/27 CT of the chest abdomen pelvis on 04/27/16 showed moderate bilateral pleural effusion and worsening necrotizing pancreatitis. Extensive peripancreatic fluid /phlegmon. -For possible lap kim once her acute pancreatitis resolves. ID: Leukocytosis Sepsis -Continue with abx per ID (Vanco, Micafungin) and monitor for signs of infections - d/c Imipenem - benadryl for rash. -Follow up on blood, sputum cultures.... NGTD Heme: -Monitor CBC. Endo: Hyperglycemia secondary to critical illness -SSI medium scale for glycemic control GI prophylaxis with Protonix 40 mg daily and DVT prophylaxis with SCDs/Lovenox 40mg daily. Dispo: Remain in the ICU. Indra Hassan MD Apr 30, 2016 10:38
--- NOTE | 2016-04-30 10:48 | HHI.GIFU ---
GI Follow-up Note Consult Follow-up Subjective: Patient laying in bed comfortably, at bedside. She feels better, less abd pain and breathing better. Concern for increasing WBC but cultures neg and on broad spectrum abx coverage. Eddie full liquids well. O2 sat better 96%. Has developed a diffuse pruritic rash back and abd. She had a small BM this am. Objective: PHYSICAL EXAMINATION: Vitals signs stable No fever Tm=99 HEENT: icteric CHEST: breathing non-labored, decreased BS right base. CARDIAC: Regular rate and rhythm with no murmur gallop or rubs. ABDOMEN: Soft, mildly distended(unchanged) and nontender. EXTREMITIES: No clubbing, cyanosis, or edema. SKIN: diffuse maculopapular rash abd c/w drug reaction. FLORAL MANAGER: No focal deficits; alert and oriented times three. Available Data (labs, X- Rays, Procedues) : ASSESSMENT/PLAN: 1. Acute necrotizing pancreatitis-case discussed with stream control officer Dr Mosqueda. Will advance to low fat diet and increase creon. Pt to get out of bed, ambulate with assistance and sit up in chair. May need to repeat cultures. Dr Mosqueda addressing rash. It was a pleasure seeing Mary Araujo. Thank you for this consult. Entered by: Jac Fierro MD Apr 30, 2016 10:48
[2016-04-30] MEDS: diphenhydrAMINE HCL 50 MG/ML VIAL IV PRN (11:04)
--- NOTE | 2016-04-30 11:30 | HHI.IDPN ---
Note Infectious Disease Note Patient in bedside chair. On nasal canula. Discussed tianna RN. Awake and alert. Afebrile. She has developed a macular rash at trunk. (+) itching. PAST MEDICAL HISTORY 1. Arthritis. 2. Gallbladder disease. ALLERGIES SULFA. MEDICATIONS 1. Vancomycin. 2. Imipenem. 3. Micafungin. SOCIAL HISTORY No tobacco use. Occasional alcohol. No illicit drugs. FAMILY HISTORY Noncontributory. OBJECTIVE: Vital Signs Date Time Temp Pulse Resp B/P Pulse Ox O2 Delivery O2 Flow Rate FiO2 04/30/16 08:00 80 04/30/16 08:00 99.3 95 22 133/66 90 04/30/16 06:00 89 04/30/16 04:00 76 04/30/16 04:00 99.1 93 22 135/65 95 04/30/16 02:00 74 04/30/16 00:00 70 04/30/16 00:00 98.8 77 23 117/58 91 04/29/16 22:00 72 04/29/16 20:00 77 04/29/16 20:00 98.7 78 22 116/56 92 04/29/16 19:34 91 High Flow Nasal Cannula 25.00 70 04/29/16 18:00 93 04/29/16 16:00 80 04/29/16 16:00 99.9 95 22 120/56 90 04/29/16 14:00 92 04/29/16 12:00 99.3 78 18 119/78 91 04/29/16 12:00 78 04/29/16 12:00 91 Partial Non-Rebreather 25.00 75 04/29/16 04/29/16 04/30/16 15:00 23:00 07:00 Intake Total 1116 ml 804 ml 1165 ml Output Total 1300 ml 600 ml 600 ml Balance -184 ml 204 ml 565 ml Intake Oral 820 ml 240 ml 700 ml IV Total 296 ml 564 ml 465 ml Output Urine Total 1300 ml 600 ml 600 ml # Bowel Movements 0 1 Laboratory Tests Test 04/29/16 04/30/16 05:40 03:18 White Blood Count 14.3 TH/MM3 17.4 TH/MM3 Red Blood Count 3.23 MIL/MM3 3.30 MIL/MM3 Hemoglobin 9.9 GM/DL 10.0 GM/DL Hematocrit 29.3 % 29.7 % Mean Corpuscular Volume 90.6 FL 90.2 FL Mean Corpuscular Hemoglobin 30.7 PG 30.3 PG Mean Corpuscular Hemoglobin 33.9 % 33.6 % Concent Red Cell Distribution Width 14.7 % 14.6 % Platelet Count 224 TH/MM3 267 TH/MM3 Mean Platelet Volume 8.3 FL 8.4 FL Neutrophils (%) (Auto) 86.7 % 87.5 % Lymphocytes (%) (Auto) 6.6 % 6.0 % Monocytes (%) (Auto) 5.4 % 5.2 % Eosinophils (%) (Auto) 1.1 % 1.1 % Basophils (%) (Auto) 0.2 % 0.2 % Neutrophils # (Auto) 12.4 TH/MM3 15.2 TH/MM3 Lymphocytes # (Auto) 0.9 TH/MM3 1.0 TH/MM3 Monocytes # (Auto) 0.8 TH/MM3 0.9 TH/MM3 Eosinophils # (Auto) 0.2 TH/MM3 0.2 TH/MM3 Basophils # (Auto) 0.0 TH/MM3 0.0 TH/MM3 CBC Comment AUTO DIFF AUTO DIFF Differential Total Cells 100 100 Counted Neutrophils % (Manual) 52 % 86 % Band Neutrophils % 33 % 9 % Lymphocytes % 10 % 1 % Monocytes % 3 % 3 % Basophils % 1 % Neutrophils # (Manual) 12.3 TH/MM3 16.5 TH/MM3 Metamyelocytes 1 % Differential Comment FINAL DIFF FINAL DIFF MANUAL MANUAL Atypical Lymphocytes % Toxic Granulation 1+ 1+ Toxic Vacuolation PRESENT Platelet Estimate NORMAL NORMAL Platelet Morphology Comment ENLARGED NORMAL Eosinophils % 1 % Target Cells 1+ Laboratory Tests Test 04/29/16 04/30/16 05:40 03:18 Sodium Level 136 MEQ/L 138 MEQ/L Potassium Level 3.4 MEQ/L 3.3 MEQ/L Chloride Level 97 MEQ/L 98 MEQ/L Carbon Dioxide Level 29.8 MEQ/L 29.6 MEQ/L Anion Gap 9 MEQ/L 10 MEQ/L Blood Urea Nitrogen 9 MG/DL 8 MG/DL Creatinine 0.59 MG/DL 0.62 MG/DL Estimat Glomerular Filtration 101 ML/MIN 95 ML/MIN Rate Random Glucose 156 MG/DL 140 MG/DL Calcium Level 7.8 MG/DL 8.0 MG/DL Magnesium Level 2.1 MG/DL 2.2 MG/DL Total Bilirubin 11.1 MG/DL 9.5 MG/DL Aspartate Amino Transf 64 U/L 66 U/L (AST/SGOT) Alanine Aminotransferase 53 U/L 53 U/L (ALT/SGPT) Alkaline Phosphatase 46 U/L 54 U/L Total Protein 5.0 GM/DL 4.7 GM/DL Albumin 1.6 GM/DL 1.6 GM/DL Phosphorus Level 1.7 MG/DL Microbiology Date/Time Procedure Status Source Growth 04/27/16 19:15 Aerobic Blood Culture - Preliminary Resulted Blood Peripheral NO GROWTH IN 3 DAYS 04/27/16 19:15 Anaerobic Blood Culture - Preliminary Resulted Blood Peripheral NO GROWTH IN 3 DAYS 04/27/16 19:26 Aerobic Blood Culture - Preliminary Resulted Blood Peripheral NO GROWTH IN 3 DAYS 04/27/16 19:26 Anaerobic Blood Culture - Preliminary Resulted Blood Peripheral NO GROWTH IN 3 DAYS IMAGING: Chest X-Ray 04/28/16 0000 Signed Impressions: Service Date/Time: April 08:06 - CONCLUSION: 1. Stable small to moderate left pleural effusion with basilar airspace disease. 2. Slight reaccumulation of right pleural fluid since April 26. No pneumothorax. Isaiah Sparks MD Abdomen X-Ray 04/28/16 0000 Signed Impressions: Service Date/Time: April 11:13 - CONCLUSION: 1. Mild gaseous distention of bowel. No obstruction or free air. Isaiah Sparks MD Thoracentesis Ultrasound 04/26/16 0000 Signed Impressions: Service Date/Time: Tuesday, April 26, 2016 15:11 - CONCLUSION: Uncomplicated ultrasound guided thoracentesis with removal of 350 cc of dark brown fluid. Nayan Esteves MD Chest X-Ray 04/26/16 0000 Signed Impressions: Service Date/Time: Tuesday, April 26, 2016 16:17 - CONCLUSION: No pneumothorax is visualized following recent right thoracentesis. The right pleural effusion appears completely resolved. Left pleural effusion remains present. Nayan Esteves MD Chest X-Ray 04/26/16 0000 Signed Impressions: Service Date/Time: Tuesday, April 26, 2016 07:09 - CONCLUSION: Bibasilar opacities representing pleural effusions with associated volume loss and/or consolidation. Left is slightly larger than right. These appear smaller than on yesterday's examination but may be secondary to upright positioning today versus semiupright previously. Nayan Esteves MD Chest CT 04/26/16 0000 Signed Impressions: Service Date/Time: Tuesday, April 26, 2016 12:34 - CONCLUSION: 1. Bibasilar consolidation and moderate bilateral pleural effusions. This likely represents compressive atelectasis although pneumonia cannot be excluded. 2. Minimal groundglass densities in the upper lobes are nonspecific. Kashmir Hunter MD Abdomen/Pelvis CT 04/26/16 0000 Signed Impressions: Service Date/Time: Tuesday, April 26, 2016 12:34 - CONCLUSION: 1. Acute pancreatitis with necrotic pancreas and extensive esequiel-pancreatic fluid/ phlegmon reaction. 2. Small amount of ascites. 3. Moderate bilateral pleural effusions and bibasilar atelectasis. 4. Benign-appearing hepatic low densities. Kashmir Hunter MD Chest X-Ray 04/26/16 0000 Signed Impressions: Service Date/Time: Tuesday, April 26, 2016 07:09 - CONCLUSION: Bibasilar opacities representing pleural effusions with associated volume loss and/or consolidation. Left is slightly larger than right. These appear smaller than on yesterday's examination but may be secondary to upright positioning today versus semiupright previously. Nayan Esteves MD Abdomen/Pelvis CT 04/22/16 1059 Signed Impressions: Service Date/Time: Friday, April 22, 2016 11:18 - CONCLUSION: 1. Findings consistent with what looks like acute pancreatitis. Cholecystitis is a consideration as well. 2. Trace free fluid is evident. Nate Mckenzie MD FACR Liver Ultrasound 04/22/16 0000 Signed Impressions: Service Date/Time: Friday, April 22, 2016 15:09 - CONCLUSION: 1. Although there is gallbladder wall thickening and pericholecystic fluid the gallbladder is not distended nor do I identify any stones or sludge. MRCP is more sensitive for detecting small stones. 2. Trace amount ascites. Rene Mosqueda Jr., MD Cholangiopancreatography MRI 04/22/16 0000 Signed Impressions: Service Date/Time: Friday, April 22, 2016 13:57 - CONCLUSION: Acute pancreatitis with extensive phlegmon reaction and ascites throughout the upper abdomen. There is evidence of cholelithiasis. Kashmir Hunter MD PHYSICAL EXAMINATION GENERAL: No acute distress. Awake and alert and responsive. HEENT: (+) icterus. Oropharynx slightly dry mucosa. NECK: Supple. No adenopathy or swelling. LUNGS: Decreased breath sounds. No rhonchi. HEART: Regular S1-S2 without audible murmurs, rubs or gallops. ABDOMEN: Distended, No bowel sounds. Nontender to palpation. EXTREMITIES: No clubbing or cyanosis or edema. SKIN: Jaundiced. Warm and moist. Macular rash on the trunk. NEUROLOGICAL: Non focal. IMPRESSION 1. Acute pancreatitis. Necrotic pancreatitis. 2. Sepsis. Intermittent fever. Temp improved. 3. Bilateral pleural effusions. Post drainage 04/26/16. 4. Leukocytosis. WBC elevated. 5. Skin rash. Suspect is drug rash. Likely imipenem. RECOMMENDATIONS 1. Continue Vancomycin. 2. Stop Imipenem. 3. Continue Micafungin. 4. Monitor the temperature. 5. Monitor WBC. Bam Ly MD Apr 30, 2016 11:30
[2016-04-30] MEDS ORDERED: PHARMACY ORDERED LAB XX ONE (15:45)
--- NOTE | 2016-04-30 16:34 | HHI.PR ---
Subjective Subjective Notes Has some epigastric pain, not as severe as last few days. Objective Vitals/I&O Vital Signs Date Time Temp Pulse Resp B/P Pulse Ox O2 Delivery O2 Flow Rate FiO2 04/30/16 14:00 87 04/30/16 12:00 98.4 16 127/61 99 04/30/16 07:56 High Flow Nasal Cannula 25.00 70 Labs Laboratory Tests Test 04/30/16 03:18 White Blood Count 17.4 Red Blood Count 3.30 Hemoglobin 10.0 Hematocrit 29.7 Mean Corpuscular Volume 90.2 Mean Corpuscular Hemoglobin 30.3 Mean Corpuscular Hemoglobin 33.6 Concent Red Cell Distribution Width 14.6 Platelet Count 267 Mean Platelet Volume 8.4 Neutrophils (%) (Auto) 87.5 Lymphocytes (%) (Auto) 6.0 Monocytes (%) (Auto) 5.2 Eosinophils (%) (Auto) 1.1 Basophils (%) (Auto) 0.2 Neutrophils # (Auto) 15.2 Lymphocytes # (Auto) 1.0 Monocytes # (Auto) 0.9 Eosinophils # (Auto) 0.2 Basophils # (Auto) 0.0 CBC Comment AUTO DIFF Differential Total Cells 100 Counted Neutrophils % (Manual) 86 Band Neutrophils % 9 Lymphocytes % 1 Monocytes % 3 Eosinophils % 1 Neutrophils # (Manual) 16.5 Differential Comment FINAL DIFF MANUAL Toxic Granulation 1+ Platelet Estimate NORMAL Platelet Morphology Comment NORMAL Target Cells 1+ Sodium Level 138 Potassium Level 3.3 Chloride Level 98 Carbon Dioxide Level 29.6 Anion Gap 10 Blood Urea Nitrogen 8 Creatinine 0.62 Estimat Glomerular Filtration 95 Rate Random Glucose 140 Calcium Level 8.0 Phosphorus Level 1.7 Magnesium Level 2.2 Total Bilirubin 9.5 Aspartate Amino Transf 66 (AST/SGOT) Alanine Aminotransferase 53 (ALT/SGPT) Alkaline Phosphatase 54 Total Protein 4.7 Albumin 1.6 Date/Time Procedure Status Source Growth 04/27/16 19:26 Aerobic Blood Culture - Preliminary Resulted Blood Peripheral NO GROWTH IN 3 DAYS 04/27/16 19:26 Anaerobic Blood Culture - Preliminary Resulted Blood Peripheral NO GROWTH IN 3 DAYS 04/26/16 15:45 Gram Stain - Final Complete Fluid Pleural Fluid 04/26/16 15:45 Body Fluid Culture - Final Complete Fluid Pleural Fluid NO GROWTH IN 72 HRS.--AEROBICALLY OR ... 04/26/16 15:45 Fungal Smear - Final Resulted Fluid Pleural Fluid NO FUNGAL ELEMENTS SEEN. 04/26/16 15:45 Fungal Culture Resulted Fluid Pleural Fluid Pending Lungs: Clear Abdomen: Non-distended, Other (Epigastric tenderness to palpation) A/P Assessment and Plan Assessment: gallstone pancreatitis, Synagogue Drug rash, likely due to imipenem - being stopped WBC's increasing, but no fevers or signs of sepsis PLAN: significant pancreatitis, gallstones continue aggressive medical support will consider cholecystostomy tube vs abx as an alternative pending hospital course recommend bowel regimen/suppository for constipation Michael Son MD Apr 30, 2016 16:34
[2016-04-30] MEDS: MICAFUNGIN INJ 100 MG in SODIUM CHLORIDE 0.9% INJ 100 ML IV SCH (16:59)
[2016-05-01] VITALS (15 sets, daily range): BP systolic 115–138; BP diastolic 58–72; PULSE 74–89; RESP 16–26; TEMP 98–99.3; O2SAT 92–97
[2016-05-01] MEDS: CHLORHEXIDINE GLUCONATE 2 % 1 PACK (2 CLOTHS) TOP SCH (04:00)
[2016-05-01] MEDS: INSULIN NovoLIN REGULAR SUPPLEMENTAL SCALE SQ SCH ×4 (04:02→20:47)
[2016-05-01] MEDS: VANCOMYCIN INJ 1,250 MG in SODIUM CHLOR 0.9% 250 ML INJ 250 ML IV SCH ×2 (04:03→15:53)
[2016-05-01] MEDS: ACETAMINOPHEN 325 MG TAB PO PRN ×2 (04:30→15:16)
[2016-05-01 05:37] LABS: HEMATOCRIT 28.1 % (35.0-46.0); MEAN CELL VOLUME 90.3 FL (80.0-100.0); MEAN CORPUSCULAR HEMOGLOBIN 31.2 PG (27.0-34.0); MEAN CORPUSCULAR HGB CONC 34.6 % (32.0-36.0); PLATELET COUNT 291 TH/MM3 (150-450); RED BLOOD COUNT 3.11 MIL/MM3 (4.00-5.30); RED CELL DISTRIBUTION WIDTH 14.5 % (11.6-17.2); REVIEW FLAG FINAL; WHITE BLOOD COUNT 16.2 TH/MM3 (4.0-11.0)
[2016-05-01 05:45] LABS: APTT (PATIENT) 27.1 SEC (24.3-30.1); INTERNATIONAL NORMALIZED RATIO 1.2 RATIO; PROTHROMBIN TIME - PATIENT 12.9 SEC (9.8-11.6)
[2016-05-01 06:14] LABS: BICARBONATE 28.7 MEQ/L (21.0-32.0); INDIRECT BILIRUBIN 1.5 MG/DL (0.0-0.8); POTASSIUM 3.2 MEQ/L (3.5-5.1); TOTAL BILIRUBIN ADULT 5.8 MG/DL (0.2-1.0)
--- NOTE | 2016-05-01 08:20 | HHI.CCPN ---
Subjective Remarks/Hospital Course The patient is 70-year-old female with a past medical history of arthritis who presented to [facility] ED with complaint of diffuse abdominal pain associated with intractable nausea and vomiting. She denies any diarrhea or constipation. In addition, the patient denies any constitutional symptoms, chest pain or shortness of breath. She has had abdominal pain for several weeks in the past and was seen by Kirti FARMER and underwent endoscopy, colonoscopy and a gallbladder ultrasound which showed gallstones within the gallbladder and inflammation. It was recommended that she undergo a cholecystectomy. However, the patient refused and wanted to try homeopathic treatment. On arrival to the ED, the patient was tachycardic with a heart rate of 101 to 108. Her laboratory data significant for a leukocytosis with a WBC of 20.7 and lactic acidosis with a lactic acid level of 5.9. Furthermore, the patient was found to have significant elevated lipase level at 25,378 and elevated liver enzymes with AST of 156 and ALT 147 with a total bilirubin of 1.0. She had a CT scan of the abdomen and pelvis which showed findings consistent with acute pancreatitis in addition to possible cholecystitis. She subsequently underwent an MRCP which showed acute pancreatitis with extensive phlegmon reaction and ascites throughout the upper abdomen and evidence of cholelithiasis. In the emergency department, she was given morphine for pain and currently receiving third liter of crystalloids. The patient also was given Zosyn. She was seen by Dr. Stern from GI and Dr. Giordano from surgery and plan to continue with medical management for now until her acute pancreatitis resolves. The patient is a nondrinker. 04/23 Patient sates her abd pain somewhat better since last night received additional 2L boluses of NS lactic acid 5.8 this morning. WBC 10 from 20 this morning 04/24 No acute events overnight. Lactic acid and Lipase levels trending down. Afebrile. 04/25 Patient is on NRB mask with good sats. SPked fever with T: 101.8 last night pancultured and Vancomycin was added. Lipase trending down. 04/26 Patient was placed on BIPAP 02/24 with FIO2 80% , T:101.0 last night. Given Bumex 1mg x1 yesterday with good UO. Patient states her breathing and abd pain is better. 04/27: Patient remains on BiPAP 80% FiO2 overnight. Breathing comfortably. CT of the chest abdomen pelvis on 04/27/16 showed moderate bilateral pleural effusion and worsening necrotizing pancreatitis. Extensive peripancreatic fluid /phlegmon. Right pleural effusion drained yesterday with 350 mL of dark brown fluid removed 04/28: Remains on partial nonrebreather. Bedside ultrasound shows small to moderate effusion on the left side, not large enough to drain. Physical therapy consulted. We'll attempt high flow oxygen today 04/29 No acute events overnight. Patient is on high flow oxygen with 70% FIO2. Afebrile. 04/30: rash developed overnight which is itchy but nonpainful. abdominal pain relatively unchanged. per her , he says he thinks she looks better compared to yesterday. 05/01: OOB to chair x 4 hours yesterday. rash improved slightly. states her abdominal pain is slightly better. tolerated low fat diet yesterday. Objective Vital Signs Date Time Temp Pulse Resp B/P Pulse Ox O2 Delivery O2 Flow Rate FiO2 05/01/16 06:00 74 05/01/16 04:00 98.3 16 115/58 92 04/30/16 19:05 High Flow Nasal Cannula 25.00 60 Intake and Output 04/30/16 04/30/16 05/01/16 08:00 16:00 00:00 Intake Total 1165 ml 776 ml 760 ml Output Total 600 ml 950 ml 950 ml Balance 565 ml -174 ml -190 ml Result Diagram: 05/01/16 0500 05/01/16 0500 Imaging Last Impressions Chest X-Ray 04/28/16 0000 Signed Impressions: Service Date/Time: April 08:06 - CONCLUSION: 1. Stable small to moderate left pleural effusion with basilar airspace disease. 2. Slight reaccumulation of right pleural fluid since April 26. No pneumothorax. Isaiah Sparks MD Abdomen X-Ray 04/28/16 0000 Signed Impressions: Service Date/Time: April 11:13 - CONCLUSION: 1. Mild gaseous distention of bowel. No obstruction or free air. Isaiah Sparks MD Thoracentesis Ultrasound 04/26/16 0000 Signed Impressions: Service Date/Time: Tuesday, April 26, 2016 15:11 - CONCLUSION: Uncomplicated ultrasound guided thoracentesis with removal of 350 cc of dark brown fluid. Nayan Esteves MD Chest CT 04/26/16 Signed Impressions: Service Date/Time: Tuesday, April 26, 2016 12:34 - CONCLUSION: 1. Bibasilar consolidation and moderate bilateral pleural effusions. This likely represents compressive atelectasis although pneumonia cannot be excluded. 2. Minimal groundglass densities in the upper lobes are nonspecific. Kashmir Hunter MD Abdomen/Pelvis CT 04/26/16 Signed Impressions: Service Date/Time: Tuesday, April 26, 2016 12:34 - CONCLUSION: 1. Acute pancreatitis with necrotic pancreas and extensive esequiel-pancreatic fluid/ phlegmon reaction. 2. Small amount of ascites. 3. Moderate bilateral pleural effusions and bibasilar atelectasis. 4. Benign-appearing hepatic low densities. Kashmir Hunter MD Liver Ultrasound 04/22/16 Signed Impressions: Service Date/Time: Friday, April 22, 2016 15:09 - CONCLUSION: 1. Although there is gallbladder wall thickening and pericholecystic fluid the gallbladder is not distended nor do I identify any stones or sludge. MRCP is more sensitive for detecting small stones. 2. Trace amount ascites. Rene Mosqueda Jr., MD Cholangiopancreatography MRI 04/22/16 Signed Impressions: Service Date/Time: Friday, April 22, 2016 13:57 - CONCLUSION: Acute pancreatitis with extensive phlegmon reaction and ascites throughout the upper abdomen. There is evidence of cholelithiasis. Kashmir Hunter MD Objective Remarks GENERAL: Patient is lying in bed on high flow NC SKIN: Warm and dry. rash which was present yesterday is improving and less prominent. HEAD: Normocephalic. EYES: No scleral icterus. No injection or drainage. NECK: Supple, trachea midline. No JVD or lymphadenopathy. CARDIOVASCULAR: S1-S2 normal no murmurs, gallops, or rubs. RESPIRATORY: Breath sounds equal bilaterally. Few coarse BS. GASTROINTESTINAL: Abdomen soft, mild tenderness on palpation. No guarding MUSCULOSKELETAL: No cyanosis, or edema. Neuro: Awake and alert. No focal deficits A/P Assessment and Plan Assessment: 70yF with Acute necrotizing gallstone pancreatitis, course complicated by acute hypoxic respiratory failure. Clinically, she is slowly improving. Again her leukocytosis persists, though afebrile and culture data negative. tolerating diet. will add bowel regimen per Gen Surg request. Plan for OOB and walking today. PLAN: Neuro: Abdominal Pain -Monitor neuro status and avoid sedatives. -Morphine 2 mg IV q. 2 hours p.r.n. for pain. Pulm: Acute hypoxemic respiratory failure- resolving. Moderate bilateral pleural effusion -Wean down oxygen as zahida keep sat >92% -Bronchodilators. NIPPV PRN. -s/p US guided right thoracentesis with removal 350 ml pleural fluid. Pleural fluid studies consistent with exudative effusion-cultures, gram stain negative -OOB to chair and ambulating daily. CV: Sepsis Lactic acidemia- resolved Hypertension Hyperlipidemia -On Cardizem 60mg QID-Monitor HR and BP keep MAP>65 mmHg. -Echo showed EF 65-70% -Lactic acidosis resolved. : Monitor renal function. Electrolyte replacement per protocol. FEN/GI: Acute necrotizing pancreatitis Extensive peripancreatic fluid/phlegmon Cholelithiasis Elevated LFT's trending down -low fat diet per GI, advance diet per GI. -On Protonix 40 mg IV for GI prophylaxis. -Monitor LFTs and lipase level ( trending down). GI and general surgery are following. -04/22 MRCP: Acute pancreatitis with extensive phlegmon reaction and ascites throughout the upper abdomen. There is evidence of cholelithiasis. -04/22 US Liver: Although there is gallbladder wall thickening and pericholecystic fluid the gallbladder is not distended, no stones or sludge. -04/22 CT abdomen: Findings consistent with acute pancreatitis. Cholecystitis is a consideration as well. -04/27 CT of the chest abdomen pelvis on 04/27/16 showed moderate bilateral pleural effusion and worsening necrotizing pancreatitis. Extensive peripancreatic fluid /phlegmon. -For possible lap kim once her acute pancreatitis resolves. - add senna, colace, miralax for bowel regimen. ID: Leukocytosis Sepsis -Continue with abx per ID (Vanco, Micafungin) and monitor for signs of infections - d/c Imipenem - benadryl for rash. -Follow up on blood, sputum cultures.... NGTD Heme: -Monitor CBC. Endo: Hyperglycemia secondary to critical illness -SSI medium scale for glycemic control GI prophylaxis with Protonix 40 mg daily and DVT prophylaxis with SCDs/Lovenox 40mg daily. will d/c cardoza today. Dispo: Remain in the ICU. as she clinically slowly improves, will consider de- escalating level of nursing care. Indra Hassan MD May 01, 2016 08:20
[2016-05-01] MEDS: POLYETHYLENE GLYCOL 17 GM PKG PO SCH ×2 (09:00→20:48)
[2016-05-01] MEDS: DOCUSATE SODIUM 50 MG/SENNA 8.6 MG TAB PO SCH ×2 (09:00→20:49)
[2016-05-01] MEDS: LIPASE/PROTEASE/AMYLASE (24,000/76,000/120,000) CAP PO SCH ×3 (09:15→17:29)
[2016-05-01] MEDS: PANTOPRAZOLE SODIUM 40 MG VIAL IV SCH (09:15)
[2016-05-01] MEDS: DILTIAZEM HCL 60 MG TAB PO SCH ×4 (09:16→20:47)
[2016-05-01] MEDS: ENOXAPARIN SODIUM 40 MG/0.4 ML SYRINGE SQ SCH (09:16)
[2016-05-01] MEDS: POTASSIUM CHLORIDE 20 MEQ CONTROLLED RELEASE TAB PO SCH ×2 (09:41→12:24)
--- NOTE | 2016-05-01 10:13 | HHI.GIFU ---
GI Follow-up Note Consult Follow-up Subjective: Patient sitting up in chair. Eating fair. No increase abd pain but feels more bloated. Urine output good. Objective: PHYSICAL EXAMINATION: Vitals signs stable No fever Tm=99 CHEST: Chest is clear upper lung zarco with decrease BS at bases. CARDIAC: Regular rate and rhythm with no murmur gallop or rubs. ABDOMEN: Soft, moderately distended with mild tympany upper abd. No significant tenderness. EXTREMITIES: sequential bam hose SKIN: Rash still present SEX CRIMES DETECTIVE: alert and oriented times three. Available Data (labs, X- Rays, Procedues) : LFTs improving. WBC decreasing. ASSESSMENT/PLAN: 1. Acute Necrotizing Pancreatitis-slowly improving. Continue low fat diet with supplements and creon. It was a pleasure seeing Mary Araujo. Thank you for this consult. Entered by: Jac Fierro MD May 01, 2016 10:13
--- NOTE | 2016-05-01 15:38 | HHI.PR ---
Subjective Subjective Notes Feels somewhat bloated today, but tolerating liquids with supplements. Objective Vitals/I&O Vital Signs Date Time Temp Pulse Resp B/P Pulse Ox O2 Delivery O2 Flow Rate FiO2 05/01/16 14:00 76 05/01/16 12:00 99.3 20 120/70 97 04/30/16 19:05 High Flow Nasal Cannula 25.00 60 Labs Laboratory Tests Test 04/30/16 05/01/16 16:17 05:00 Vancomycin Level Trough 14.0 White Blood Count 16.2 Red Blood Count 3.11 Hemoglobin 9.7 Hematocrit 28.1 Mean Corpuscular Volume 90.3 Mean Corpuscular Hemoglobin 31.2 Mean Corpuscular Hemoglobin 34.6 Concent Red Cell Distribution Width 14.5 Platelet Count 291 Mean Platelet Volume 8.0 Prothrombin Time 12.9 Prothromb Time International 1.2 Ratio Activated Partial 27.1 Thromboplast Time Sodium Level 138 Potassium Level 3.2 Chloride Level 98 Carbon Dioxide Level 28.7 Anion Gap 11 Blood Urea Nitrogen 7 Creatinine 0.66 Estimat Glomerular Filtration 89 Rate Random Glucose 217 Calcium Level 7.9 Total Bilirubin 5.8 Direct Bilirubin 4.3 Indirect Bilirubin 1.5 Aspartate Amino Transf 45 (AST/SGOT) Alanine Aminotransferase 44 (ALT/SGPT) Alkaline Phosphatase 60 Total Protein 4.8 Albumin 1.6 Date/Time Procedure Status Source Growth 04/27/16 19:26 Aerobic Blood Culture - Preliminary Resulted Blood Peripheral NO GROWTH IN 4 DAYS 04/27/16 19:26 Anaerobic Blood Culture - Preliminary Resulted Blood Peripheral NO GROWTH IN 4 DAYS 04/26/16 15:45 Gram Stain - Final Complete Fluid Pleural Fluid 04/26/16 15:45 Body Fluid Culture - Final Complete Fluid Pleural Fluid NO GROWTH IN 72 HRS.--AEROBICALLY OR ... 04/26/16 15:45 Fungal Smear - Final Resulted Fluid Pleural Fluid NO FUNGAL ELEMENTS SEEN. 04/26/16 15:45 Fungal Culture Resulted Fluid Pleural Fluid Pending Lungs: Clear Abdomen: Other (Mildly distended, minimal to moderate tenderness to palpation) A/P Assessment and Plan Assessment: gallstone pancreatitis, Jainism Drug rash, likely due to imipenem - improved WBC's decreasing Bilirubin and other LFT's trending down (t bili 5.8) PLAN: significant pancreatitis, gallstones continue aggressive medical support recommend bowel regimen/suppository for constipation Consider transfer to floor when OK with medical team Michael Son MD May 01, 2016 15:38
[2016-05-01] MEDS ORDERED: PHARMACY ORDERED LAB XX ONE (15:45)
[2016-05-01] MEDS: MICAFUNGIN INJ 100 MG in SODIUM CHLORIDE 0.9% INJ 100 ML IV SCH (17:29)
[2016-05-01] MEDS: MORPHINE SULFATE 4 MG/ML INJ IV PUSH PRN (20:48)
[2016-05-01] MEDS: ONDANSETRON HCL 4 MG/2 ML VIAL IV PUSH PRN (20:48)
[2016-05-01] MEDS: SODIUM CHLORIDE 0.9% FLUSH 5 ML FLUSH IVF PRN (20:49)
[2016-05-02] VITALS (13 sets, daily range): BP systolic 124–143; BP diastolic 60–79; PULSE 72–88; RESP 18–25; TEMP 97.6–98.8; O2SAT 93–98
[2016-05-02] MEDS: diphenhydrAMINE HCL 50 MG/ML VIAL IV PRN (01:54)
[2016-05-02] MEDS: SODIUM CHLORIDE 0.9% FLUSH 5 ML FLUSH IVF PRN (01:55)
[2016-05-02] MEDS: MORPHINE SULFATE 4 MG/ML INJ IV PUSH PRN (01:55)
[2016-05-02] MEDS: INSULIN NovoLIN REGULAR SUPPLEMENTAL SCALE SQ SCH ×4 (02:00→21:06)
[2016-05-02] MEDS: VANCOMYCIN INJ 1,250 MG in SODIUM CHLOR 0.9% 250 ML INJ 250 ML IV SCH ×2 (03:34→15:24)
[2016-05-02] MEDS: CHLORHEXIDINE GLUCONATE 2 % 1 PACK (2 CLOTHS) TOP SCH (03:34)
[2016-05-02 04:40] LABS: HEMATOCRIT 27.2 % (35.0-46.0); MEAN CELL VOLUME 90.7 FL (80.0-100.0); MEAN CORPUSCULAR HEMOGLOBIN 31.2 PG (27.0-34.0); MEAN CORPUSCULAR HGB CONC 34.4 % (32.0-36.0); PLATELET COUNT 315 TH/MM3 (150-450); RED CELL DISTRIBUTION WIDTH 14.7 % (11.6-17.2); REVIEW FLAG FINAL; WHITE BLOOD COUNT 16.7 TH/MM3 (4.0-11.0)
[2016-05-02 05:13] LABS: BICARBONATE 29.2 MEQ/L (21.0-32.0); POTASSIUM 3.6 MEQ/L (3.5-5.1)
[2016-05-02 05:18] LABS: INDIRECT BILIRUBIN 0.9 MG/DL (0.0-0.8); TOTAL BILIRUBIN ADULT 3.9 MG/DL (0.2-1.0)
[2016-05-02] MEDS: DOCUSATE SODIUM 50 MG/SENNA 8.6 MG TAB PO SCH ×2 (09:00→21:00)
[2016-05-02] MEDS: POLYETHYLENE GLYCOL 17 GM PKG PO SCH ×2 (09:00→21:00)
[2016-05-02] MEDS: DILTIAZEM HCL 60 MG TAB PO SCH ×4 (09:07→21:01)
[2016-05-02] MEDS: ENOXAPARIN SODIUM 40 MG/0.4 ML SYRINGE SQ SCH (09:07)
[2016-05-02] MEDS: LIPASE/PROTEASE/AMYLASE (24,000/76,000/120,000) CAP PO SCH ×3 (09:07→21:00)
[2016-05-02] MEDS: PANTOPRAZOLE SODIUM 40 MG VIAL IV SCH (09:07)
--- NOTE | 2016-05-02 11:10 | HHI.GIFU ---
GI Follow-up Note Consult Follow-up Subjective: Patient laying in bed comfortably, abdominal pain a level 3(1-10). Eating but not much. Roberts cath out. O2 sat 96% on 3 L NC. Moving bowels. Objective: PHYSICAL EXAMINATION: Vitals signs stable No fever CHEST: Lungs with some rhonchi lower lung zarco but moving air better at bases. CARDIAC: Regular rate and rhythm with no murmur gallop or rubs. ABDOMEN: Soft, moderately distended but unchanged. EXTREMITIES: No clubbing, cyanosis, or edema. SKIN: diffuse maculopapular rash back and abd appears unchanged. EMBOSSING MACHINE OPERATOR: No focal deficits; alert and oriented times three. Available Data (labs, X- Rays, Procedues) : Labs stable or improving. LFTs improving. Cultures remain negative. ASSESSMENT/PLAN: 1. Acute necrotizing pancreatitis-improving. Continue supportive care. It was a pleasure seeing Mary Araujo. Thank you for this consult. Entered by: Jac Fierro MD May 02, 2016 11:10
--- NOTE | 2016-05-02 12:28 | HHI.PR ---
Subjective Subjective Notes pain continues to improve, wbc 16, t bili trending down, +bms Objective Vitals/I&O Vital Signs Date Time Temp Pulse Resp B/P Pulse Ox O2 Delivery O2 Flow Rate FiO2 05/02/16 10:00 82 05/02/16 09:38 96 Nasal Cannula 3.00 05/02/16 08:00 98.3 24 140/63 05/01/16 22:00 40 Labs Laboratory Tests Test 05/01/16 05/02/16 15:35 04:09 Potassium Level 3.6 3.6 White Blood Count 16.7 Red Blood Count 3.00 Hemoglobin 9.4 Hematocrit 27.2 Mean Corpuscular Volume 90.7 Mean Corpuscular Hemoglobin 31.2 Mean Corpuscular Hemoglobin 34.4 Concent Red Cell Distribution Width 14.7 Platelet Count 315 Mean Platelet Volume 8.0 Sodium Level 140 Chloride Level 103 Carbon Dioxide Level 29.2 Anion Gap 8 Blood Urea Nitrogen 4 Creatinine 0.68 Estimat Glomerular Filtration 86 Rate Random Glucose 237 Calcium Level 7.7 Total Bilirubin 3.9 Direct Bilirubin 3.0 Indirect Bilirubin 0.9 Aspartate Amino Transf 31 (AST/SGOT) Alanine Aminotransferase 38 (ALT/SGPT) Alkaline Phosphatase 65 Total Protein 4.8 Albumin 1.6 Date/Time Procedure Status Source Growth 04/27/16 19:26 Aerobic Blood Culture - Final Complete Blood Peripheral NO GROWTH IN 5 DAYS 04/27/16 19:26 Anaerobic Blood Culture - Final Complete Blood Peripheral NO GROWTH IN 5 DAYS Cardiovascular: Regular Lungs: Other (decreased bs) Abdomen: Other (soft mild ttp diffuse, no rebound) A/P Assessment and Plan gallstone pancreatitis, Jehovah witness PLAN significant pancreatitis, gallstones, CT with worsen inflammation, failure of pancreatic enhancement. no evidence of air or infected pancreatitis at this time. Will continue to observe. If infected necrosis develops then pt may need operation, but continue non operative mgnt for now continue aggressive medical support will consider cholecystostomy tube vs abx as an alternative pending hospital course recommend bowel regimen/suppository for constipation wbc increase order CXR for am- [facility] pulmonary in origin Vini Giordano MD May 02, 2016 12:28
--- NOTE | 2016-05-02 13:13 | HHI.IDPN ---
Note Infectious Disease Note Patient feels fatigued. On nasal canula. Awake and alert. Afebrile. Still has macular rash at trunk. (+) itching. PAST MEDICAL HISTORY 1. Arthritis. 2. Gallbladder disease. ALLERGIES SULFA. MEDICATIONS 1. Vancomycin. 2. Micafungin. SOCIAL HISTORY No tobacco use. Occasional alcohol. No illicit drugs. FAMILY HISTORY Noncontributory. OBJECTIVE: Vital Signs Date Time Temp Pulse Resp B/P Pulse Ox O2 Delivery O2 Flow Rate FiO2 05/02/16 10:00 82 05/02/16 09:38 96 Nasal Cannula 3.00 05/02/16 08:00 98.3 88 24 140/63 95 05/02/16 08:00 95 Nasal Cannula 4.00 05/02/16 08:00 88 05/02/16 06:00 80 05/02/16 04:00 98.5 78 24 124/61 93 05/02/16 04:00 78 05/02/16 04:00 93 Nasal Cannula 4.00 05/02/16 02:00 85 05/02/16 00:00 98.8 80 25 127/63 96 05/02/16 00:00 80 05/02/16 00:00 96 Nasal Cannula 4.00 05/01/16 22:00 95 Bi-Pap 40 05/01/16 22:00 83 05/01/16 21:45 95 40 05/01/16 20:00 89 05/01/16 20:00 92 Nasal Cannula 4.00 05/01/16 20:00 98.6 89 26 138/71 96 05/01/16 19:02 95 Nasal Cannula 4.00 05/01/16 18:00 82 05/01/16 16:00 98.8 82 20 136/65 97 05/01/16 16:00 Nasal Cannula 4.00 05/01/16 16:00 76 05/01/16 14:00 76 05/01/16 05/01/16 05/02/16 15:00 23:00 07:00 Intake Total 480 ml 240 ml 710 ml Output Total 600 ml 500 ml Balance -120 ml 240 ml 210 ml Intake Oral 480 ml 240 ml 450 ml IV Total 0 ml 260 ml Output Urine Total 600 ml 500 ml # Voids 1 1 # Bowel Movements 2 1 0 Laboratory Tests Test 05/01/16 05/02/16 05:00 04:09 White Blood Count 16.2 TH/MM3 16.7 TH/MM3 Red Blood Count 3.11 MIL/MM3 3.00 MIL/MM3 Hemoglobin 9.7 GM/DL 9.4 GM/DL Hematocrit 28.1 % 27.2 % Mean Corpuscular Volume 90.3 FL 90.7 FL Mean Corpuscular Hemoglobin 31.2 PG 31.2 PG Mean Corpuscular Hemoglobin 34.6 % 34.4 % Concent Red Cell Distribution Width 14.5 % 14.7 % Platelet Count 291 TH/MM3 315 TH/MM3 Mean Platelet Volume 8.0 FL 8.0 FL Laboratory Tests Test 05/01/16 05/01/16 05/02/16 05:00 15:35 04:09 Sodium Level 138 MEQ/L 140 MEQ/L Potassium Level 3.2 MEQ/L 3.6 MEQ/L 3.6 MEQ/L Chloride Level 98 MEQ/L 103 MEQ/L Carbon Dioxide Level 28.7 MEQ/L 29.2 MEQ/L Anion Gap 11 MEQ/L 8 MEQ/L Blood Urea Nitrogen 7 MG/DL 4 MG/DL Creatinine 0.66 MG/DL 0.68 MG/DL Estimat Glomerular Filtration 89 ML/MIN 86 ML/MIN Rate Random Glucose 217 MG/DL 237 MG/DL Calcium Level 7.9 MG/DL 7.7 MG/DL Total Bilirubin 5.8 MG/DL 3.9 MG/DL Direct Bilirubin 4.3 MG/DL 3.0 MG/DL Indirect Bilirubin 1.5 MG/DL 0.9 MG/DL Aspartate Amino Transf 45 U/L 31 U/L (AST/SGOT) Alanine Aminotransferase 44 U/L 38 U/L (ALT/SGPT) Alkaline Phosphatase 60 U/L 65 U/L Total Protein 4.8 GM/DL 4.8 GM/DL Albumin 1.6 GM/DL 1.6 GM/DL Microbiology Date/Time Procedure Status Source Growth 04/27/16 19:15 Aerobic Blood Culture - Preliminary Resulted Blood Peripheral NO GROWTH IN 3 DAYS 04/27/16 19:15 Anaerobic Blood Culture - Preliminary Resulted Blood Peripheral NO GROWTH IN 3 DAYS 04/27/16 19:26 Aerobic Blood Culture - Preliminary Resulted Blood Peripheral NO GROWTH IN 3 DAYS 04/27/16 19:26 Anaerobic Blood Culture - Preliminary Resulted Blood Peripheral NO GROWTH IN 3 DAYS IMAGING: Chest X-Ray 3/11/17 0000 Signed Impressions: Service Date/Time: Saturday, April 30, 2016 08:35 - CONCLUSION: Increased density bases bilaterally representing combination of atelectasis, consolidation and effusion. Compared to the prior exam, there has been worsening on the right. The left-sided findings are stable. Nayan Murray MD Chest X-Ray 04/28/16 Signed Impressions: Service Date/Time: April 08:06 - CONCLUSION: 1. Stable small to moderate left pleural effusion with basilar airspace disease. 2. Slight reaccumulation of right pleural fluid since April 26. No pneumothorax. Isaiah Sparks MD Abdomen X-Ray 04/28/16 Signed Impressions: Service Date/Time: April 11:13 - CONCLUSION: 1. Mild gaseous distention of bowel. No obstruction or free air. Isaiah Sparks MD Thoracentesis Ultrasound 04/26/16 Signed Impressions: Service Date/Time: Tuesday, April 26, 2016 15:11 - CONCLUSION: Uncomplicated ultrasound guided thoracentesis with removal of 350 cc of dark brown fluid. Nayan Esteves MD Chest X-Ray 04/26/16 Signed Impressions: Service Date/Time: Tuesday, April 26, 2016 16:17 - CONCLUSION: No pneumothorax is visualized following recent right thoracentesis. The right pleural effusion appears completely resolved. Left pleural effusion remains present. Nayan Esteves MD Chest X-Ray 04/26/16 Signed Impressions: Service Date/Time: Tuesday, April 26, 2016 07:09 - CONCLUSION: Bibasilar opacities representing pleural effusions with associated volume loss and/or consolidation. Left is slightly larger than right. These appear smaller than on yesterday's examination but may be secondary to upright positioning today versus semiupright previously. Nayan Esteves MD Chest CT 04/26/16 Signed Impressions: Service Date/Time: Tuesday, April 26, 2016 12:34 - CONCLUSION: 1. Bibasilar consolidation and moderate bilateral pleural effusions. This likely represents compressive atelectasis although pneumonia cannot be excluded. 2. Minimal groundglass densities in the upper lobes are nonspecific. Kashmir Hunter MD Abdomen/Pelvis CT 3/7/17 0000 Signed Impressions: Service Date/Time: Tuesday, April 26, 2016 12:34 - CONCLUSION: 1. Acute pancreatitis with necrotic pancreas and extensive esequiel-pancreatic fluid/ phlegmon reaction. 2. Small amount of ascites. 3. Moderate bilateral pleural effusions and bibasilar atelectasis. 4. Benign-appearing hepatic low densities. Kashmir Hunter MD PHYSICAL EXAMINATION GENERAL: No acute distress. Awake and alert and responsive. HEENT: (+) icterus. Oropharynx slightly dry mucosa. NECK: Supple. No adenopathy or swelling. LUNGS: Decreased breath sounds. HEART: Regular S1-S2 without audible murmurs, rubs or gallops. ABDOMEN: Distended, No bowel sounds. Nontender to palpation. EXTREMITIES: No clubbing or cyanosis or edema. SKIN: Jaundiced. Warm and moist. Macular rash on the trunk. NEUROLOGICAL: Non focal. IMPRESSION 1. Acute pancreatitis. Necrotic pancreatitis. 2. Sepsis. Intermittent fever. Temp improved. 3. Bilateral pleural effusions. Post drainage 04/26/16. 4. Leukocytosis. WBC elevated. 5. Skin rash. Suspect is drug rash. Likely imipenem. However persist after stopping Imipenem. Will stop Micafungin. RECOMMENDATIONS 1. Continue Vancomycin. 2. Stop Micafungin. 3. Monitor the temperature. 4. Monitor WBC. 5. New cultures if she has temp spike. Bam Ly MD May 02, 2016 13:13
[2016-05-02] MEDS: ACETAMINOPHEN 325 MG TAB PO PRN (13:31)
--- NOTE | 2016-05-02 14:40 | HHI.CCPN ---
Subjective Remarks/Hospital Course The patient is 70-year-old female with a past medical history of arthritis who presented to [facility] ED with complaint of diffuse abdominal pain associated with intractable nausea and vomiting. She denies any diarrhea or constipation. In addition, the patient denies any constitutional symptoms, chest pain or shortness of breath. She has had abdominal pain for several weeks in the past and was seen by Kirti FARMER and underwent endoscopy, colonoscopy and a gallbladder ultrasound which showed gallstones within the gallbladder and inflammation. It was recommended that she undergo a cholecystectomy. However, the patient refused and wanted to try homeopathic treatment. On arrival to the ED, the patient was tachycardic with a heart rate of 101 to 108. Her laboratory data significant for a leukocytosis with a WBC of 20.7 and lactic acidosis with a lactic acid level of 5.9. Furthermore, the patient was found to have significant elevated lipase level at 25,378 and elevated liver enzymes with AST of 156 and ALT 147 with a total bilirubin of 1.0. She had a CT scan of the abdomen and pelvis which showed findings consistent with acute pancreatitis in addition to possible cholecystitis. She subsequently underwent an MRCP which showed acute pancreatitis with extensive phlegmon reaction and ascites throughout the upper abdomen and evidence of cholelithiasis. In the emergency department, she was given morphine for pain and currently receiving third liter of crystalloids. The patient also was given Zosyn. She was seen by Dr. Stern from GI and Dr. Giordano from surgery and plan to continue with medical management for now until her acute pancreatitis resolves. The patient is a nondrinker. 04/23 Patient sates her abd pain somewhat better since last night received additional 2L boluses of NS lactic acid 5.8 this morning. WBC 10 from 20 this morning 04/24 No acute events overnight. Lactic acid and Lipase levels trending down. Afebrile. 04/25 Patient is on NRB mask with good sats. SPked fever with T: 101.8 last night pancultured and Vancomycin was added. Lipase trending down. 04/26 Patient was placed on BIPAP 02/24 with FIO2 80% , T:101.0 last night. Given Bumex 1mg x1 yesterday with good UO. Patient states her breathing and abd pain is better. 04/27: Patient remains on BiPAP 80% FiO2 overnight. Breathing comfortably. CT of the chest abdomen pelvis on 04/27/16 showed moderate bilateral pleural effusion and worsening necrotizing pancreatitis. Extensive peripancreatic fluid /phlegmon. Right pleural effusion drained yesterday with 350 mL of dark brown fluid removed 04/28: Remains on partial nonrebreather. Bedside ultrasound shows small to moderate effusion on the left side, not large enough to drain. Physical therapy consulted. We'll attempt high flow oxygen today 04/29 No acute events overnight. Patient is on high flow oxygen with 70% FIO2. Afebrile. 04/30: rash developed overnight which is itchy but nonpainful. abdominal pain relatively unchanged. per her , he says he thinks she looks better compared to yesterday. 05/01: OOB to chair x 4 hours yesterday. rash improved slightly. states her abdominal pain is slightly better. tolerated low fat diet yesterday. 05/02: clinically improving. abdominal pain continues to improve. tolerating diet. LFTs downtrending. walked around the ICU today. Objective Vital Signs Date Time Temp Pulse Resp B/P Pulse Ox O2 Delivery O2 Flow Rate FiO2 05/02/16 14:00 80 05/02/16 12:00 98.7 20 132/60 94 05/02/16 12:00 Nasal Cannula 4.00 05/01/16 22:00 40 Intake and Output 05/01/16 05/01/16 05/02/16 08:00 16:00 00:00 Intake Total 351 ml 480 ml 240 ml Output Total 1000 ml 600 ml Balance -649 ml -120 ml 240 ml Result Diagram: 05/02/16 0409 05/02/16 0409 Imaging Last Impressions Chest X-Ray 04/28/16 0000 Signed Impressions: Service Date/Time: April 08:06 - CONCLUSION: 1. Stable small to moderate left pleural effusion with basilar airspace disease. 2. Slight reaccumulation of right pleural fluid since April 26. No pneumothorax. Isaiah Sparks MD Abdomen X-Ray 04/28/16 0000 Signed Impressions: Service Date/Time: April 11:13 - CONCLUSION: 1. Mild gaseous distention of bowel. No obstruction or free air. Isaiah Sparks MD Thoracentesis Ultrasound 04/26/16 0000 Signed Impressions: Service Date/Time: Tuesday, April 26, 2016 15:11 - CONCLUSION: Uncomplicated ultrasound guided thoracentesis with removal of 350 cc of dark brown fluid. Nayan Esteves MD Chest CT 04/26/16 Signed Impressions: Service Date/Time: Tuesday, April 26, 2016 12:34 - CONCLUSION: 1. Bibasilar consolidation and moderate bilateral pleural effusions. This likely represents compressive atelectasis although pneumonia cannot be excluded. 2. Minimal groundglass densities in the upper lobes are nonspecific. Kashmir Hunter MD Abdomen/Pelvis CT 04/26/16 Signed Impressions: Service Date/Time: Tuesday, April 26, 2016 12:34 - CONCLUSION: 1. Acute pancreatitis with necrotic pancreas and extensive esequiel-pancreatic fluid/ phlegmon reaction. 2. Small amount of ascites. 3. Moderate bilateral pleural effusions and bibasilar atelectasis. 4. Benign-appearing hepatic low densities. Kashmir Hunter MD Liver Ultrasound 04/22/16 Signed Impressions: Service Date/Time: Friday, April 22, 2016 15:09 - CONCLUSION: 1. Although there is gallbladder wall thickening and pericholecystic fluid the gallbladder is not distended nor do I identify any stones or sludge. MRCP is more sensitive for detecting small stones. 2. Trace amount ascites. Rene Mosqueda Jr., MD Cholangiopancreatography MRI 04/22/16 Signed Impressions: Service Date/Time: Friday, April 22, 2016 13:57 - CONCLUSION: Acute pancreatitis with extensive phlegmon reaction and ascites throughout the upper abdomen. There is evidence of cholelithiasis. Kashmir Hunter MD Objective Remarks GENERAL: Patient is lying in bed on MI SKIN: Warm and dry. rash continues to improve. HEAD: Normocephalic. EYES: No scleral icterus. No injection or drainage. NECK: trachea midline. No JVD CARDIOVASCULAR: S1-S2 normal no murmurs, gallops, or rubs. RESPIRATORY: Breath sounds equal bilaterally. Few coarse BS. GASTROINTESTINAL: Abdomen soft, mild tenderness on palpation. No guarding MUSCULOSKELETAL: No cyanosis, or edema. Neuro: Awake and alert. No focal deficits A/P Assessment and Plan Assessment: 70yF with Acute necrotizing gallstone pancreatitis, course complicated by acute hypoxic respiratory failure. Clinically, she is slowly improving. Again her leukocytosis persists, though afebrile and culture data negative. tolerating diet. clinically improving, and I think that it is safe to transfer her out of the ICU with hospitalist following. PLAN: Neuro: Abdominal Pain -Monitor neuro status and avoid sedatives. -Morphine 2 mg IV q. 2 hours p.r.n. for pain. Pulm: Acute hypoxemic respiratory failure- resolving. Moderate bilateral pleural effusion -Wean down oxygen as zahida keep sat >92% -Bronchodilators. -s/p US guided right thoracentesis with removal 350 ml pleural fluid. Pleural fluid studies consistent with exudative effusion-cultures, gram stain negative -OOB to chair and ambulating daily. CV: Sepsis Lactic acidemia- resolved Hypertension Hyperlipidemia -On Cardizem 60mg QID-Monitor HR and BP keep MAP>65 mmHg. -Echo showed EF 65-70% -Lactic acidosis resolved. : Monitor renal function. Electrolyte replacement per protocol. FEN/GI: Acute necrotizing pancreatitis Extensive peripancreatic fluid/phlegmon Cholelithiasis Elevated LFT's trending down -low fat diet per GI, advance diet per GI. -On Protonix 40 mg IV for GI prophylaxis. -Monitor LFTs and lipase level ( trending down). GI and general surgery are following. -04/22 MRCP: Acute pancreatitis with extensive phlegmon reaction and ascites throughout the upper abdomen. There is evidence of cholelithiasis. -04/22 US Liver: Although there is gallbladder wall thickening and pericholecystic fluid the gallbladder is not distended, no stones or sludge. -04/22 CT abdomen: Findings consistent with acute pancreatitis. Cholecystitis is a consideration as well. -04/27 CT of the chest abdomen pelvis on 04/27/16 showed moderate bilateral pleural effusion and worsening necrotizing pancreatitis. Extensive peripancreatic fluid /phlegmon. -For possible lap kim once her acute pancreatitis resolves. - gentle bowel regimen with senna, colace, miralax. goal daily bowel movements, currently achieving. ID: Leukocytosis Sepsis -Continue with abx per ID (Vanco, d/c micafungin today.) and monitor for signs of infections - d/c Imipenem - benadryl for rash. -Follow up on blood, sputum cultures.... NGTD Heme: -Monitor CBC. Endo: Hyperglycemia secondary to critical illness -SSI medium scale for glycemic control GI prophylaxis with Protonix 40 mg daily and DVT prophylaxis with SCDs/Lovenox 40mg daily. Dispo: transfer to floor with hospitalist following. Indra Hassan MD May 02, 2016 14:40 Indra Hassan MD May 02, 2016 14:40
[2016-05-03] VITALS (10 sets, daily range): BP systolic 125–138; BP diastolic 61–94; PULSE 74–98; RESP 17–21; TEMP 97.8–99.5; O2SAT 90–98
[2016-05-03] MEDS: MORPHINE SULFATE 4 MG/ML INJ IV PUSH PRN ×2 (03:33→21:21)
[2016-05-03] MEDS: SODIUM CHLORIDE 0.9% FLUSH 5 ML FLUSH IVF PRN ×2 (03:33→21:21)
[2016-05-03] MEDS: INSULIN NovoLIN REGULAR SUPPLEMENTAL SCALE SQ SCH ×4 (03:37→21:20)
[2016-05-03] MEDS: VANCOMYCIN INJ 1,250 MG in SODIUM CHLOR 0.9% 250 ML INJ 250 ML IV SCH ×2 (03:38→17:40)
[2016-05-03] MEDS: CHLORHEXIDINE GLUCONATE 2 % 1 PACK (2 CLOTHS) TOP SCH (03:38)
--- NOTE | 2016-05-03 06:14 | RADRPT ---
EXAM DATE/TIME: 05/03/2016 04:34 [facility] COMPARISON: CHEST SINGLE AP, April 30, 2016, 8:35. INDICATIONS : Short of breath. MEDICAL HISTORY : Pancreatitis. Hypertension. SURGICAL HISTORY : None. ENCOUNTER: Subsequent ACUITY: 4 - 6 days PAIN SCORE: Non-responsive. LOCATION: Bilateral chest FINDINGS: Single AP view of the chest. Persistent bilateral lower lung zone pulmonary opacity very similar to t he prior study indicating consolidation versus atelectasis. Small bilateral pleural effusions. Cardio mediastinal silhouette unchanged. No evidence of pneumothorax. CONCLUSION: No significant change with persistent bilateral lower lung zone atelectasis versus consolidation and small bilateral pleural effusions. Louis Thomas MD on May 03, 2016 at 6:12 Board Certified Radiologist. This report was verified electronically.
[2016-05-03 06:18] LABS: HEMATOCRIT 27.2 % (35.0-46.0); MEAN CELL VOLUME 91.3 FL (80.0-100.0); MEAN CORPUSCULAR HEMOGLOBIN 30.7 PG (27.0-34.0); MEAN CORPUSCULAR HGB CONC 33.6 % (32.0-36.0); PLATELET COUNT 367 TH/MM3 (150-450); RED BLOOD COUNT 2.98 MIL/MM3 (4.00-5.30); RED CELL DISTRIBUTION WIDTH 14.5 % (11.6-17.2); REVIEW FLAG FINAL; WHITE BLOOD COUNT 15.2 TH/MM3 (4.0-11.0)
[2016-05-03 06:52] LABS: BICARBONATE 28.2 MEQ/L (21.0-32.0); POTASSIUM 3.5 MEQ/L (3.5-5.1)
[2016-05-03 06:54] LABS: TOTAL BILIRUBIN ADULT 2.9 MG/DL (0.2-1.0)
--- NOTE | 2016-05-03 09:57 | HHI.GIFU ---
GI Follow-up Note Consult Follow-up Subjective: Patient laying in bed comfortably, no new complaints, rash still present. Denies nausea. Moving bowels. Still on full liquids but I ordered a 40gm fat diet on the . Objective: PHYSICAL EXAMINATION: Vitals signs stable No fever ABDOMEN: Softer, still mildly distended without significant tenderness. EXTREMITIES: No clubbing, cyanosis, or edema. SKIN: Rash about the same, no worse. TOP CARRIER: alert and oriented times three. Available Data (labs, X- Rays, Procedues) : LFTs continue to improve. CXR done, results pending. Image looks like still has pleural effusion. ASSESSMENT/PLAN: 1. Acute necrotizing pancreatitis-improving. Discussed diet advancement with her nurse and re-entered order. Continue creon. Continue PT for increasing activity. It was a pleasure seeing Mary Araujo. Thank you for this consult. Entered by: Jac Fierro MD May 03, 2016 09:57
[2016-05-03] MEDS: diphenhydrAMINE HCL 50 MG/ML VIAL IV PRN (10:02)
[2016-05-03] MEDS: ENOXAPARIN SODIUM 40 MG/0.4 ML SYRINGE SQ SCH (10:03)
[2016-05-03] MEDS: POLYETHYLENE GLYCOL 17 GM PKG PO SCH ×2 (10:04→21:00)
[2016-05-03] MEDS: PANTOPRAZOLE SODIUM 40 MG VIAL IV SCH (10:04)
[2016-05-03] MEDS: LIPASE/PROTEASE/AMYLASE (24,000/76,000/120,000) CAP PO SCH ×3 (10:04→17:39)
[2016-05-03] MEDS: DILTIAZEM HCL 60 MG TAB PO SCH ×4 (10:05→21:19)
[2016-05-03] MEDS: DOCUSATE SODIUM 50 MG/SENNA 8.6 MG TAB PO SCH ×2 (10:05→21:19)
--- NOTE | 2016-05-03 12:24 | HHI.IDPN ---
Note Infectious Disease Note Patient feels fatigued. nOTES ABDOMINAL PAIN WHEN SGHE EATS. On nasal canula. Awake and alert. Afebrile. Still has macular rash at trunk. (+) itching. PAST MEDICAL HISTORY 1. Arthritis. 2. Gallbladder disease. ALLERGIES SULFA. MEDICATIONS Vancomycin. SOCIAL HISTORY No tobacco use. Occasional alcohol. No illicit drugs. FAMILY HISTORY Noncontributory. OBJECTIVE: Vital Signs Date Time Temp Pulse Resp B/P Pulse Ox O2 Delivery O2 Flow Rate FiO2 05/03/16 11:07 96 Nasal Cannula 3.00 05/03/16 08:00 97.9 79 19 132/69 93 05/03/16 04:00 97.9 83 18 130/61 98 05/03/16 04:00 97 Nasal Cannula 3.00 05/03/16 00:00 97.8 83 17 127/62 97 05/03/16 00:00 97 Nasal Cannula 3.00 05/02/16 20:00 75 05/02/16 20:00 97.6 81 18 142/67 98 05/02/16 20:00 98 Nasal Cannula 3.00 05/02/16 19:59 96 Nasal Cannula 3.00 05/02/16 17:47 97.8 77 24 143/79 96 05/02/16 16:00 98.2 72 20 136/63 94 05/02/16 16:00 72 05/02/16 16:00 93 Nasal Cannula 4.00 05/02/16 14:00 80 05/02/16 05/02/16 05/03/16 15:00 23:00 07:00 Intake Total 720 ml 600 ml 200 ml Output Total 800 ml Balance -80 ml 600 ml 200 ml Intake Oral 720 ml 600 ml 200 ml Output Urine Total 800 ml # Voids 3 1 # Bowel Movements 1 2 1 Laboratory Tests Test 05/02/16 05/03/16 04:09 05:27 White Blood Count 16.7 TH/MM3 15.2 TH/MM3 Red Blood Count 3.00 MIL/MM3 2.98 MIL/MM3 Hemoglobin 9.4 GM/DL 9.2 GM/DL Hematocrit 27.2 % 27.2 % Mean Corpuscular Volume 90.7 FL 91.3 FL Mean Corpuscular Hemoglobin 31.2 PG 30.7 PG Mean Corpuscular Hemoglobin 34.4 % 33.6 % Concent Red Cell Distribution Width 14.7 % 14.5 % Platelet Count 315 TH/MM3 367 TH/MM3 Mean Platelet Volume 8.0 FL 8.0 FL Laboratory Tests Test 05/01/16 05/02/16 05/03/16 15:35 04:09 05:27 Potassium Level 3.6 MEQ/L 3.6 MEQ/L 3.5 MEQ/L Sodium Level 140 MEQ/L 140 MEQ/L Chloride Level 103 MEQ/L 101 MEQ/L Carbon Dioxide Level 29.2 MEQ/L 28.2 MEQ/L Anion Gap 8 MEQ/L 11 MEQ/L Blood Urea Nitrogen 4 MG/DL 3 MG/DL Creatinine 0.68 MG/DL 0.75 MG/DL Estimat Glomerular Filtration 86 ML/MIN 76 ML/MIN Rate Random Glucose 237 MG/DL 164 MG/DL Calcium Level 7.7 MG/DL 8.0 MG/DL Total Bilirubin 3.9 MG/DL 2.9 MG/DL Direct Bilirubin 3.0 MG/DL 1.9 MG/DL Indirect Bilirubin 0.9 MG/DL 1.0 MG/DL Aspartate Amino Transf 31 U/L 27 U/L (AST/SGOT) Alanine Aminotransferase 38 U/L 33 U/L (ALT/SGPT) Alkaline Phosphatase 65 U/L 61 U/L Total Protein 4.8 GM/DL 5.1 GM/DL Albumin 1.6 GM/DL 1.6 GM/DL Microbiology Date/Time Procedure Status Source Growth 04/27/16 19:15 Aerobic Blood Culture - Preliminary Resulted Blood Peripheral NO GROWTH IN 3 DAYS 04/27/16 19:15 Anaerobic Blood Culture - Preliminary Resulted Blood Peripheral NO GROWTH IN 3 DAYS 04/27/16 19:26 Aerobic Blood Culture - Preliminary Resulted Blood Peripheral NO GROWTH IN 3 DAYS 04/27/16 19:26 Anaerobic Blood Culture - Preliminary Resulted Blood Peripheral NO GROWTH IN 3 DAYS IMAGING: Chest X-Ray 04/30/16 0000 Signed Impressions: Service Date/Time: Saturday, April 30, 2016 08:35 - CONCLUSION: Increased density bases bilaterally representing combination of atelectasis, consolidation and effusion. Compared to the prior exam, there has been worsening on the right. The left-sided findings are stable. Nayan Murray MD Chest X-Ray 04/28/16 0000 Signed Impressions: Service Date/Time: April 08:06 - CONCLUSION: 1. Stable small to moderate left pleural effusion with basilar airspace disease. 2. Slight reaccumulation of right pleural fluid since April 26. No pneumothorax. Isaiah Sparks MD Abdomen X-Ray 04/28/16 Signed Impressions: Service Date/Time: April 11:13 - CONCLUSION: 1. Mild gaseous distention of bowel. No obstruction or free air. Isaiah Sparks MD Thoracentesis Ultrasound 04/26/16 Signed Impressions: Service Date/Time: Tuesday, April 26, 2016 15:11 - CONCLUSION: Uncomplicated ultrasound guided thoracentesis with removal of 350 cc of dark brown fluid. Nayan Esteves MD Chest X-Ray 04/26/16 Signed Impressions: Service Date/Time: Tuesday, April 26, 2016 16:17 - CONCLUSION: No pneumothorax is visualized following recent right thoracentesis. The right pleural effusion appears completely resolved. Left pleural effusion remains present. Nayan Esteves MD Chest X-Ray 04/26/16 Signed Impressions: Service Date/Time: Tuesday, April 26, 2016 07:09 - CONCLUSION: Bibasilar opacities representing pleural effusions with associated volume loss and/or consolidation. Left is slightly larger than right. These appear smaller than on yesterday's examination but may be secondary to upright positioning today versus semiupright previously. Nayan Esteves MD Chest CT 04/26/16 Signed Impressions: Service Date/Time: Tuesday, April 26, 2016 12:34 - CONCLUSION: 1. Bibasilar consolidation and moderate bilateral pleural effusions. This likely represents compressive atelectasis although pneumonia cannot be excluded. 2. Minimal groundglass densities in the upper lobes are nonspecific. Kashmir Hunter MD Abdomen/Pelvis CT 04/26/16 Signed Impressions: Service Date/Time: Tuesday, April 26, 2016 12:34 - CONCLUSION: 1. Acute pancreatitis with necrotic pancreas and extensive esequiel-pancreatic fluid/ phlegmon reaction. 2. Small amount of ascites. 3. Moderate bilateral pleural effusions and bibasilar atelectasis. 4. Benign-appearing hepatic low densities. Kashmir Hunter MD PHYSICAL EXAMINATION GENERAL: No acute distress. Awake and alert and responsive. HEENT: (+) icterus. Oropharynx mucosa dry. NECK: Supple. No adenopathy or swelling. LUNGS: Decreased breath sounds. HEART: Regular S1-S2 without audible murmurs, rubs or gallops. ABDOMEN: Distended, Decreased bowel sounds. Nontender to palpation. EXTREMITIES: No clubbing or cyanosis or edema. SKIN: Jaundiced. Warm and moist. Macular rash on the trunk and back. NEUROLOGICAL: Non focal. IMPRESSION 1. Acute pancreatitis. Necrotic pancreatitis. 2. Sepsis. Intermittent fever. Temp improved. 3. Bilateral pleural effusions. Post drainage 04/26/16. 4. Leukocytosis. WBC elevated. 5. Skin rash. Suspect is drug rash. Likely imipenem. However persist after stopping Imipenem. Micafungin stopped 1 day ago. Will follow rash and change Vancomycin to alternative drug if no improvement. RECOMMENDATIONS 1. Continue Vancomycin. 2. Monitor the rash. 3. Monitor the temperature. 4. Monitor WBC. 5. New cultures if she has temp spike. 6. Continue Benadryl for itching. 7. Consider being less aggressive with diet since abdominal pain get's worse when she eats. Bma Ly MD May 03, 2016 12:24
--- NOTE | 2016-05-03 15:00 | HHI.PR ---
Subjective Remarks up and ambulating around the floor tolerated lunch - no complains after + BM Here visiting from [place] has a place in [place] Objective Vitals Vital Signs Date Time Temp Pulse Resp B/P Pulse Ox O2 Delivery O2 Flow Rate FiO2 05/03/16 13:20 94 Nasal Cannula 3.00 05/03/16 12:00 99.5 98 21 138/94 93 05/03/16 11:07 96 Nasal Cannula 3.00 05/03/16 10:00 93 Nasal Cannula 3.00 05/03/16 10:00 74 05/03/16 08:00 97.9 79 19 132/69 93 05/03/16 04:00 97.9 83 18 130/61 98 05/03/16 04:00 97 Nasal Cannula 3.00 05/03/16 00:00 97.8 83 17 127/62 97 05/03/16 00:00 97 Nasal Cannula 3.00 05/02/16 20:00 75 05/02/16 20:00 97.6 81 18 142/67 98 05/02/16 20:00 98 Nasal Cannula 3.00 05/02/16 19:59 96 Nasal Cannula 3.00 05/02/16 17:47 97.8 77 24 143/79 96 05/02/16 16:00 98.2 72 20 136/63 94 05/02/16 16:00 72 05/02/16 16:00 93 Nasal Cannula 4.00 I/O 05/02/16 05/02/16 05/02/16 05/03/16 05/03/16 05/03/16 07:00 15:00 23:00 07:00 15:00 23:00 Intake Total 710 ml 720 ml 600 ml 200 ml 0 ml Output Total 500 ml 800 ml Balance 210 ml -80 ml 600 ml 200 ml 0 ml Intake Oral 450 ml 720 ml 600 ml 200 ml IV Total 260 ml 0 ml Output Urine Total 500 ml 800 ml # Voids 1 3 1 # Bowel Movements 0 1 2 1 Result Diagram: 05/03/16 0527 05/03/16 0527 Imaging Last Impressions Chest X-Ray 04/30/16 0000 Signed Impressions: Service Date/Time: Saturday, April 30, 2016 08:35 - CONCLUSION: Increased density bases bilaterally representing combination of atelectasis, consolidation and effusion. Compared to the prior exam, there has been worsening on the right. The left-sided findings are stable. Nayan Murray MD Abdomen X-Ray 04/28/16 Signed Impressions: Service Date/Time: April 11:13 - CONCLUSION: 1. Mild gaseous distention of bowel. No obstruction or free air. Isaiah Sparks MD Thoracentesis Ultrasound 04/26/16 Signed Impressions: Service Date/Time: Tuesday, April 26, 2016 15:11 - CONCLUSION: Uncomplicated ultrasound guided thoracentesis with removal of 350 cc of dark brown fluid. Nayan Esteves MD Chest CT 04/26/16 Signed Impressions: Service Date/Time: Tuesday, April 26, 2016 12:34 - CONCLUSION: 1. Bibasilar consolidation and moderate bilateral pleural effusions. This likely represents compressive atelectasis although pneumonia cannot be excluded. 2. Minimal groundglass densities in the upper lobes are nonspecific. Kashmir Hunter MD Abdomen/Pelvis CT 04/26/16 Signed Impressions: Service Date/Time: Tuesday, April 26, 2016 12:34 - CONCLUSION: 1. Acute pancreatitis with necrotic pancreas and extensive esequiel-pancreatic fluid/ phlegmon reaction. 2. Small amount of ascites. 3. Moderate bilateral pleural effusions and bibasilar atelectasis. 4. Benign-appearing hepatic low densities. Kashmir Hunter MD Liver Ultrasound 04/22/16 Signed Impressions: Service Date/Time: Friday, April 22, 2016 15:09 - CONCLUSION: 1. Although there is gallbladder wall thickening and pericholecystic fluid the gallbladder is not distended nor do I identify any stones or sludge. MRCP is more sensitive for detecting small stones. 2. Trace amount ascites. Rene Mosqueda Jr., MD Cholangiopancreatography MRI 04/22/16 Signed Impressions: Service Date/Time: Friday, April 22, 2016 13:57 - CONCLUSION: Acute pancreatitis with extensive phlegmon reaction and ascites throughout the upper abdomen. There is evidence of cholelithiasis. Kashmir Hunter MD Objective Remarks awake and alert, NAD anicteric lungs no rales or wheezes regular rhythm abdomen- slightly distended but soft, + bowel sounds, nontender extremities no edema A/P Assessment and Plan 70yF with Acute necrotizing gallstone pancreatitis, course complicated by acute hypoxic respiratory failure. Clinically, she is slowly improving. Again her leukocytosis persists, though afebrile and culture data negative. tolerating diet. clinically improving, and I think that it is safe to transfer her out of the ICU with hospitalist following. Pulm: Acute hypoxemic respiratory failure- resolving. Moderate bilateral pleural effusion -Wean down oxygen as zahida keep sat >92% -Bronchodilators. -s/p US guided right thoracentesis with removal 350 ml pleural fluid. Pleural fluid studies consistent with exudative effusion-cultures, gram stain negative -OOB to chair and ambulating daily. - encourage Incentive spirometry- good efforts Sepsis Acute necrotizing pancreatitis Extensive peripancreatic fluid/phlegmon Cholelithiasis -low fat diet per GI, advance diet per GI. -On Protonix 40 mg IV for GI prophylaxis. -Monitor LFTs and lipase level ( trending down). GI and general surgery are following. -04/22 MRCP: Acute pancreatitis with extensive phlegmon reaction and ascites throughout the upper abdomen. There is evidence of cholelithiasis. -04/22 US Liver: Although there is gallbladder wall thickening and pericholecystic fluid the gallbladder is not distended, no stones or sludge. -04/22 CT abdomen: Findings consistent with acute pancreatitis. Cholecystitis is a consideration as well. -04/27 CT of the chest abdomen pelvis on 04/27/16 showed moderate bilateral pleural effusion and worsening necrotizing pancreatitis. Extensive peripancreatic fluid /phlegmon. -For possible lap kim once her acute pancreatitis resolves. - gentle bowel regimen with senna, colace, miralax. goal daily bowel movements, currently achieving. -Continue with abx per ID (Vanco, d/c micafungin today.) and monitor for signs of infections -On Vancomycin -Follow up on blood, sputum cultures.... NGTD - FF LFTs- trending down GI and GS ff Heme: -Monitor CBC. Hypertension Hyperlipidemia -On Cardizem 60mg QID-Monitor HR and BP keep MAP>65 mmHg. -Echo showed EF 65-70% -Lactic acidosis resolved. Endo: Hyperglycemia secondary to critical illness -SSI medium scale for glycemic control GI prophylaxis with Protonix 40 mg daily and DVT prophylaxis with SCDs/Lovenox 40mg daily. Dispo: up and ambulating Giovanni Guzman MD May 03, 2016 15:00
--- NOTE | 2016-05-03 15:22 | HHI.PR ---
Subjective Subjective Notes Resting in bed Excited to take a shower Objective Vitals/I&O Vital Signs Date Time Temp Pulse Resp B/P Pulse Ox O2 Delivery O2 Flow Rate FiO2 05/03/16 13:20 94 Nasal Cannula 3.00 05/03/16 12:00 99.5 98 21 138/94 05/01/16 22:00 40 Labs Laboratory Tests Test 05/03/16 05:27 White Blood Count 15.2 Red Blood Count 2.98 Hemoglobin 9.2 Hematocrit 27.2 Mean Corpuscular Volume 91.3 Mean Corpuscular Hemoglobin 30.7 Mean Corpuscular Hemoglobin 33.6 Concent Red Cell Distribution Width 14.5 Platelet Count 367 Mean Platelet Volume 8.0 Sodium Level 140 Potassium Level 3.5 Chloride Level 101 Carbon Dioxide Level 28.2 Anion Gap 11 Blood Urea Nitrogen 3 Creatinine 0.75 Estimat Glomerular Filtration 76 Rate Random Glucose 164 Calcium Level 8.0 Total Bilirubin 2.9 Direct Bilirubin 1.9 Indirect Bilirubin 1.0 Aspartate Amino Transf 27 (AST/SGOT) Alanine Aminotransferase 33 (ALT/SGPT) Alkaline Phosphatase 61 Total Protein 5.1 Albumin 1.6 Cardiovascular: Regular Lungs: Clear Abdomen: Non-distended, Other (mild abdominal pain with palpation ) Extremities: No edema A/P Assessment and Plan 70 year old female with gallstone pancreatitis -Labs improved; continue aggressive medical support -Will consider cholecystostomy tube vs abx as an alternative pending hospital course -Recommend bowel regimen/suppository for constipation -Tolerating diet Attending Statement pt seen at bedside pt continues to improve continue non operative mgnt for now Attestation The exam, history, and the medical decision-making described in the above note were completed with the assistance of the mid-level provider. I reviewed and agree with the findings presented. I attest that I had a [id number] encounter with the patient on the same day, and personally performed and documented my assessment and findings in the medical record. Ricarda Cardona May 03, 2016 15:22 Vini Giordano MD May 08, 2016 06:22
[2016-05-04] VITALS (8 sets, daily range): BP systolic 121–159; BP diastolic 69–88; PULSE 76–89; RESP 16–20; TEMP 98.1–98.8; O2SAT 93–97
[2016-05-04] MEDS: INSULIN NovoLIN REGULAR SUPPLEMENTAL SCALE SQ SCH ×4 (03:22→21:15)
[2016-05-04] MEDS: CHLORHEXIDINE GLUCONATE 2 % 1 PACK (2 CLOTHS) TOP SCH (03:22)
[2016-05-04] MEDS: SODIUM CHLORIDE 0.9% FLUSH 5 ML FLUSH IVF PRN (03:22)
[2016-05-04] MEDS: VANCOMYCIN INJ 1,250 MG in SODIUM CHLOR 0.9% 250 ML INJ 250 ML IV SCH ×2 (03:22→14:44)
[2016-05-04 06:02] LABS: HEMATOCRIT 27.1 % (35.0-46.0); MEAN CELL VOLUME 92.4 FL (80.0-100.0); MEAN CORPUSCULAR HEMOGLOBIN 30.9 PG (27.0-34.0); MEAN CORPUSCULAR HGB CONC 33.5 % (32.0-36.0); PLATELET COUNT 355 TH/MM3 (150-450); RED BLOOD COUNT 2.93 MIL/MM3 (4.00-5.30); REVIEW FLAG FINAL; WHITE BLOOD COUNT 11.7 TH/MM3 (4.0-11.0)
[2016-05-04 06:28] LABS: BICARBONATE 29.8 MEQ/L (21.0-32.0); POTASSIUM 3.3 MEQ/L (3.5-5.1)
[2016-05-04 06:30] LABS: INDIRECT BILIRUBIN 0.8 MG/DL (0.0-0.8); TOTAL BILIRUBIN ADULT 2.5 MG/DL (0.2-1.0)
[2016-05-04] MEDS: LIPASE/PROTEASE/AMYLASE (24,000/76,000/120,000) CAP PO SCH ×3 (08:31→17:06)
[2016-05-04] MEDS: DOCUSATE SODIUM 50 MG/SENNA 8.6 MG TAB PO SCH ×2 (08:32→20:50)
[2016-05-04] MEDS: POLYETHYLENE GLYCOL 17 GM PKG PO SCH ×2 (08:32→20:50)
[2016-05-04] MEDS: PANTOPRAZOLE SODIUM 40 MG VIAL IV SCH (08:32)
[2016-05-04] MEDS: ENOXAPARIN SODIUM 40 MG/0.4 ML SYRINGE SQ SCH (08:32)
[2016-05-04] MEDS: DILTIAZEM HCL 60 MG TAB PO SCH ×4 (08:32→20:48)
--- NOTE | 2016-05-04 09:37 | HHI.PR ---
Subjective Subjective Notes Resting in bed Happy that she was able to take a shower Eating breakfast Objective Vitals/I&O Vital Signs Date Time Temp Pulse Resp B/P Pulse Ox O2 Delivery O2 Flow Rate FiO2 05/04/16 08:21 94 Nasal Cannula 3.00 05/04/16 04:00 98.4 79 18 135/77 05/01/16 22:00 40 Labs Laboratory Tests Test 05/04/16 04:41 White Blood Count 11.7 Red Blood Count 2.93 Hemoglobin 9.1 Hematocrit 27.1 Mean Corpuscular Volume 92.4 Mean Corpuscular Hemoglobin 30.9 Mean Corpuscular Hemoglobin 33.5 Concent Red Cell Distribution Width 15.0 Platelet Count 355 Mean Platelet Volume 7.9 Sodium Level 142 Potassium Level 3.3 Chloride Level 102 Carbon Dioxide Level 29.8 Anion Gap 10 Blood Urea Nitrogen 4 Creatinine 0.72 Estimat Glomerular Filtration 80 Rate Random Glucose 153 Calcium Level 7.8 Total Bilirubin 2.5 Direct Bilirubin 1.7 Indirect Bilirubin 0.8 Aspartate Amino Transf 30 (AST/SGOT) Alanine Aminotransferase 31 (ALT/SGPT) Alkaline Phosphatase 60 Total Protein 4.9 Albumin 1.7 Cardiovascular: Regular Lungs: Clear Abdomen: Non-distended, Other (mild tendernes with palpation ) Extremities: No edema A/P Assessment and Plan 70 year old female with gallstone pancreatitis -Labs continue to improved; continue aggressive medical support -Will consider cholecystostomy tube vs abx as an alternative pending hospital course -Recommend bowel regimen/suppository for constipation -Tolerating diet -OOB and mobilize Attending Statement as above pt seen at bedside avoid or until inflammation has subsided significantly Attestation The exam, history, and the medical decision-making described in the above note were completed with the assistance of the mid-level provider. I reviewed and agree with the findings presented. I attest that I had a [id number] encounter with the patient on the same day, and personally performed and documented my assessment and findings in the medical record. Ricarda Cardona May 04, 2016 09:37 Vini Giordano MD May 08, 2016 06:24
--- NOTE | 2016-05-04 10:58 | HHI.GIFU ---
Subjective Remarks Feeling better much less abdominal pain tolerating po some loose stools Objective Vitals I&O Vital Signs Date Time Temp Pulse Resp B/P Pulse Ox O2 Delivery O2 Flow Rate FiO2 05/04/16 08:21 94 Nasal Cannula 3.00 05/04/16 08:00 98.1 80 16 134/70 94 05/04/16 07:15 76 05/04/16 04:00 98.4 79 18 135/77 93 05/04/16 00:00 93 Nasal Cannula 3.00 05/03/16 20:00 93 Nasal Cannula 3.00 05/03/16 20:00 99.2 80 20 125/69 93 05/03/16 19:49 96 Nasal Cannula 3.00 05/03/16 19:15 80 05/03/16 16:00 99.0 88 18 132/64 90 05/03/16 13:20 94 Nasal Cannula 3.00 05/03/16 12:00 99.5 98 21 138/94 93 05/03/16 11:07 96 Nasal Cannula 3.00 I/O 05/03/16 05/03/16 05/03/16 05/04/16 05/04/16 05/04/16 07:00 15:00 23:00 07:00 15:00 23:00 Intake Total 200 ml 480 ml 220 ml Balance 200 ml 480 ml 220 ml Intake Oral 200 ml 480 ml 220 ml IV Total 0 ml # Voids 1 4 # Bowel Movements 1 3 Laboratory Laboratory Tests Test 05/04/16 04:41 White Blood Count 11.7 Red Blood Count 2.93 Hemoglobin 9.1 Hematocrit 27.1 Mean Corpuscular Volume 92.4 Mean Corpuscular Hemoglobin 30.9 Mean Corpuscular Hemoglobin 33.5 Concent Red Cell Distribution Width 15.0 Platelet Count 355 Mean Platelet Volume 7.9 Sodium Level 142 Potassium Level 3.3 Chloride Level 102 Carbon Dioxide Level 29.8 Anion Gap 10 Blood Urea Nitrogen 4 Creatinine 0.72 Estimat Glomerular Filtration 80 Rate Random Glucose 153 Calcium Level 7.8 Total Bilirubin 2.5 Direct Bilirubin 1.7 Indirect Bilirubin 0.8 Aspartate Amino Transf 30 (AST/SGOT) Alanine Aminotransferase 31 (ALT/SGPT) Alkaline Phosphatase 60 Total Protein 4.9 Albumin 1.7 Imaging Last Impressions Chest X-Ray 05/03/16 0600 Signed Impressions: Service Date/Time: Tuesday, May 03, 2016 04:34 - CONCLUSION: No significant change with persistent bilateral lower lung zone atelectasis versus consolidation and small bilateral pleural effusions. Louis Thomas MD Abdomen X-Ray 04/28/16 Signed Impressions: Service Date/Time: April 11:13 - CONCLUSION: 1. Mild gaseous distention of bowel. No obstruction or free air. Isaiah Sparks MD Thoracentesis Ultrasound 04/26/16 Signed Impressions: Service Date/Time: Tuesday, April 26, 2016 15:11 - CONCLUSION: Uncomplicated ultrasound guided thoracentesis with removal of 350 cc of dark brown fluid. Nayan Esteves MD Chest CT 04/26/16 Signed Impressions: Service Date/Time: Tuesday, April 26, 2016 12:34 - CONCLUSION: 1. Bibasilar consolidation and moderate bilateral pleural effusions. This likely represents compressive atelectasis although pneumonia cannot be excluded. 2. Minimal groundglass densities in the upper lobes are nonspecific. Kashmir Hunter MD Abdomen/Pelvis CT 04/26/16 Signed Impressions: Service Date/Time: Tuesday, April 26, 2016 12:34 - CONCLUSION: 1. Acute pancreatitis with necrotic pancreas and extensive esequiel-pancreatic fluid/ phlegmon reaction. 2. Small amount of ascites. 3. Moderate bilateral pleural effusions and bibasilar atelectasis. 4. Benign-appearing hepatic low densities. Kashmir Hunter MD Liver Ultrasound 04/22/16 Signed Impressions: Service Date/Time: Friday, April 22, 2016 15:09 - CONCLUSION: 1. Although there is gallbladder wall thickening and pericholecystic fluid the gallbladder is not distended nor do I identify any stones or sludge. MRCP is more sensitive for detecting small stones. 2. Trace amount ascites. Rene Mosqueda Jr., MD Cholangiopancreatography MRI 04/22/16 Signed Impressions: Service Date/Time: Friday, April 22, 2016 13:57 - CONCLUSION: Acute pancreatitis with extensive phlegmon reaction and ascites throughout the upper abdomen. There is evidence of cholelithiasis. Kashmir Hunter MD Laboratory Tests Test 04/30/16 04/30/16 05/01/16 05/04/16 03:18 16:17 05:00 04:41 Neutrophils (%) (Auto) 87.5 % Lymphocytes (%) (Auto) 6.0 % Monocytes (%) (Auto) 5.2 % Eosinophils (%) (Auto) 1.1 % Basophils (%) (Auto) 0.2 % Neutrophils # (Auto) 15.2 TH/MM3 Lymphocytes # (Auto) 1.0 TH/MM3 Monocytes # (Auto) 0.9 TH/MM3 Eosinophils # (Auto) 0.2 TH/MM3 Basophils # (Auto) 0.0 TH/MM3 CBC Comment AUTO DIFF Differential Total Cells 100 Counted Neutrophils % (Manual) 86 % Band Neutrophils % 9 % Lymphocytes % 1 % Monocytes % 3 % Eosinophils % 1 % Neutrophils # (Manual) 16.5 TH/MM3 Differential Comment FINAL DIFF MANUAL Toxic Granulation 1+ Platelet Estimate NORMAL Platelet Morphology Comment NORMAL Target Cells 1+ Phosphorus Level 1.7 MG/DL Magnesium Level 2.2 MG/DL Vancomycin Level Trough 14.0 MCG/ML Prothrombin Time 12.9 SEC Prothromb Time International 1.2 RATIO Ratio Activated Partial 27.1 SEC Thromboplast Time White Blood Count 11.7 TH/MM3 Red Blood Count 2.93 MIL/MM3 Hemoglobin 9.1 GM/DL Hematocrit 27.1 % Mean Corpuscular Volume 92.4 FL Mean Corpuscular Hemoglobin 30.9 PG Mean Corpuscular Hemoglobin 33.5 % Concent Red Cell Distribution Width 15.0 % Platelet Count 355 TH/MM3 Mean Platelet Volume 7.9 FL Sodium Level 142 MEQ/L Potassium Level 3.3 MEQ/L Chloride Level 102 MEQ/L Carbon Dioxide Level 29.8 MEQ/L Anion Gap 10 MEQ/L Blood Urea Nitrogen 4 MG/DL Creatinine 0.72 MG/DL Estimat Glomerular Filtration 80 ML/MIN Rate Random Glucose 153 MG/DL Calcium Level 7.8 MG/DL Total Bilirubin 2.5 MG/DL Direct Bilirubin 1.7 MG/DL Indirect Bilirubin 0.8 MG/DL Aspartate Amino Transf 30 U/L (AST/SGOT) Alanine Aminotransferase 31 U/L (ALT/SGPT) Alkaline Phosphatase 60 U/L Total Protein 4.9 GM/DL Albumin 1.7 GM/DL Physical Exam HEENT: Pupils round and reactive to light; normocephalic; atraumatic; no jaundice. NECK: Neck is supple, no JVD, no lymphadenopathy. CHEST: Chest is clear to auscultation and percussion. CARDIAC: Regular rate and rhythm with no murmur gallop or rubs. ABDOMEN: Soft, nondistended, nontender; no hepatosplenomegaly; bowel sounds are present in all four quadrants. EXTREMITIES: No clubbing, cyanosis, or edema. SKIN: Normal; no rash; no jaundice. PIGMENT AND LACQUER MIXER: No focal deficits; alert and oriented times three. Assessment and Plan Assessment: (1) Gallstone pancreatitis Plan Continue peresnt therapy along w Creon Appears clinically stable at present Discussed case with pt and her ...She will probable require elective GB ssurgery after complete resolution of pancreatitis...Labs and lfts are stable. Will follow with you Grupo Tatum MD May 04, 2016 10:58
[2016-05-04] MEDS: ACETAMINOPHEN 325 MG TAB PO PRN (14:50)
--- NOTE | 2016-05-04 16:02 | HHI.PR ---
Subjective Remarks tolerating po better abdominal pain less + stools Objective Vitals Vital Signs Date Time Temp Pulse Resp B/P Pulse Ox O2 Delivery O2 Flow Rate FiO2 05/04/16 12:00 94 Nasal Cannula 3.00 05/04/16 12:00 98.8 89 16 140/80 95 05/04/16 08:21 94 Nasal Cannula 3.00 05/04/16 08:00 98.1 80 16 134/70 94 05/04/16 08:00 95 Nasal Cannula 3.00 05/04/16 07:15 76 05/04/16 04:00 98.4 79 18 135/77 93 05/04/16 00:00 93 Nasal Cannula 3.00 05/03/16 20:00 93 Nasal Cannula 3.00 05/03/16 20:00 99.2 80 20 125/69 93 05/03/16 19:49 96 Nasal Cannula 3.00 05/03/16 19:15 80 05/03/16 16:00 99.0 88 18 132/64 90 I/O 05/03/16 05/03/16 05/03/16 05/04/16 05/04/16 05/04/16 07:00 15:00 23:00 07:00 15:00 23:00 Intake Total 200 ml 480 ml 220 ml Balance 200 ml 480 ml 220 ml Intake Oral 200 ml 480 ml 220 ml IV Total 0 ml # Voids 1 4 # Bowel Movements 1 3 Result Diagram: 05/04/16 0441 05/04/16 0441 Imaging Last Impressions Chest X-Ray 05/03/16 0600 Signed Impressions: Service Date/Time: Tuesday, May 03, 2016 04:34 - CONCLUSION: No significant change with persistent bilateral lower lung zone atelectasis versus consolidation and small bilateral pleural effusions. Louis Thomas MD Abdomen X-Ray 04/28/16 0000 Signed Impressions: Service Date/Time: April 11:13 - CONCLUSION: 1. Mild gaseous distention of bowel. No obstruction or free air. Isaiah Sparks MD Thoracentesis Ultrasound 04/26/16 0000 Signed Impressions: Service Date/Time: Tuesday, April 26, 2016 15:11 - CONCLUSION: Uncomplicated ultrasound guided thoracentesis with removal of 350 cc of dark brown fluid. Nayan Esteves MD Chest CT 04/26/16 Signed Impressions: Service Date/Time: Tuesday, April 26, 2016 12:34 - CONCLUSION: 1. Bibasilar consolidation and moderate bilateral pleural effusions. This likely represents compressive atelectasis although pneumonia cannot be excluded. 2. Minimal groundglass densities in the upper lobes are nonspecific. Kashmir Hunter MD Abdomen/Pelvis CT 04/26/16 Signed Impressions: Service Date/Time: Tuesday, April 26, 2016 12:34 - CONCLUSION: 1. Acute pancreatitis with necrotic pancreas and extensive esequiel-pancreatic fluid/ phlegmon reaction. 2. Small amount of ascites. 3. Moderate bilateral pleural effusions and bibasilar atelectasis. 4. Benign-appearing hepatic low densities. Kashmir Hunter MD Liver Ultrasound 04/22/16 Signed Impressions: Service Date/Time: Friday, April 22, 2016 15:09 - CONCLUSION: 1. Although there is gallbladder wall thickening and pericholecystic fluid the gallbladder is not distended nor do I identify any stones or sludge. MRCP is more sensitive for detecting small stones. 2. Trace amount ascites. Rene Mosqueda Jr., MD Cholangiopancreatography MRI 04/22/16 Signed Impressions: Service Date/Time: Friday, April 22, 2016 13:57 - CONCLUSION: Acute pancreatitis with extensive phlegmon reaction and ascites throughout the upper abdomen. There is evidence of cholelithiasis. Kashmir Hunter MD Objective Remarks awake and alert, NAD anicteric lungs no rales or wheezes regular rhythm abdomen- slightly still distended but soft, + bowel sounds, nontender, tympanitic extremities no edema A/P Assessment and Plan 70yF with Acute necrotizing gallstone pancreatitis, course complicated by acute hypoxic respiratory failure. Clinically, she is slowly improving. Again her leukocytosis persists, though afebrile and culture data negative. tolerating diet. clinically improving, and I think that it is safe to transfer her out of the ICU with hospitalist following. Pulm: Acute hypoxemic respiratory failure- resolving. Moderate bilateral pleural effusion -Wean down oxygen as zahida keep sat >92% -Bronchodilators. -s/p US guided right thoracentesis with removal 350 ml pleural fluid. Pleural fluid studies consistent with exudative effusion-cultures, gram stain negative -OOB to chair and ambulating daily. - encourage Incentive spirometry- good efforts Sepsis Acute necrotizing pancreatitis Extensive peripancreatic fluid/phlegmon Cholelithiasis -low fat diet per GI, advance diet per GI. -On Protonix 40 mg IV for GI prophylaxis. -Monitor LFTs and lipase level ( trending down). GI and general surgery are following. -04/22 MRCP: Acute pancreatitis with extensive phlegmon reaction and ascites throughout the upper abdomen. There is evidence of cholelithiasis. -04/22 US Liver: Although there is gallbladder wall thickening and pericholecystic fluid the gallbladder is not distended, no stones or sludge. -04/22 CT abdomen: Findings consistent with acute pancreatitis. Cholecystitis is a consideration as well. -04/27 CT of the chest abdomen pelvis on 04/27/16 showed moderate bilateral pleural effusion and worsening necrotizing pancreatitis. Extensive peripancreatic fluid /phlegmon. -For possible lap kim once her acute pancreatitis resolves. - gentle bowel regimen with senna, colace, miralax. goal daily bowel movements, currently achieving. -Continue with abx per ID (Vanco, d/c micafungin today.) and monitor for signs of infections -On Vancomycin -Follow up on blood, sputum cultures.... NGTD - FF LFTs- trending down GI and GS ff Heme: -Monitor CBC. Hypertension Hyperlipidemia -On Cardizem 60mg QID-Monitor HR and BP keep MAP>65 mmHg. -Echo showed EF 65-70% -Lactic acidosis resolved. Endo: Hyperglycemia secondary to critical illness -SSI medium scale for glycemic control Hypokalemia - KCL 20 meq po bid - recheck BMP in am GI prophylaxis with Protonix 40 mg daily and DVT prophylaxis with SCDs/Lovenox 40mg daily. Dispo: up and ambulating Giovanni Guzman MD May 04, 2016 16:02
[2016-05-04] MEDS: URSODIOL 300 MG CAP PO SCH (20:48)
[2016-05-04] MEDS: POTASSIUM CHLORIDE 20 MEQ CONTROLLED RELEASE TAB PO SCH (20:49)
[2016-05-04] MEDS: MORPHINE SULFATE 4 MG/ML INJ IV PUSH PRN (21:57)
[2016-05-05] VITALS (7 sets, daily range): BP systolic 106–134; BP diastolic 62–80; PULSE 78–89; RESP 18–20; TEMP 98.3–99.4; O2SAT 94–98
[2016-05-05] MEDS: diphenhydrAMINE HCL 50 MG/ML VIAL IV PRN ×2 (00:44→08:35)
[2016-05-05] MEDS: MORPHINE SULFATE 4 MG/ML INJ IV PUSH PRN ×2 (00:45→04:16)
[2016-05-05] MEDS: INSULIN NovoLIN REGULAR SUPPLEMENTAL SCALE SQ SCH ×4 (02:57→21:09)
[2016-05-05] MEDS: CHLORHEXIDINE GLUCONATE 2 % 1 PACK (2 CLOTHS) TOP SCH ×2 (04:00→19:17)
[2016-05-05] MEDS: VANCOMYCIN INJ 1,250 MG in SODIUM CHLOR 0.9% 250 ML INJ 250 ML IV SCH (04:04)
[2016-05-05 04:06] LABS: MEAN CORPUSCULAR HGB CONC 33.7 % (32.0-36.0); PLATELET COUNT 371 TH/MM3 (150-450); RED BLOOD COUNT 2.93 MIL/MM3 (4.00-5.30); RED CELL DISTRIBUTION WIDTH 15.2 % (11.6-17.2); REVIEW FLAG FINAL
[2016-05-05 04:25] LABS: POTASSIUM 3.3 MEQ/L (3.5-5.1)
[2016-05-05 04:28] LABS: INDIRECT BILIRUBIN 0.9 MG/DL (0.0-0.8); TOTAL BILIRUBIN ADULT 2.5 MG/DL (0.2-1.0)
[2016-05-05] MEDS: ENOXAPARIN SODIUM 40 MG/0.4 ML SYRINGE SQ SCH (08:24)
[2016-05-05] MEDS: DILTIAZEM HCL 60 MG TAB PO SCH ×4 (08:25→21:08)
[2016-05-05] MEDS: LIPASE/PROTEASE/AMYLASE (24,000/76,000/120,000) CAP PO SCH ×3 (08:25→17:17)
[2016-05-05] MEDS: DOCUSATE SODIUM 50 MG/SENNA 8.6 MG TAB PO SCH ×2 (08:25→21:08)
[2016-05-05] MEDS: POTASSIUM CHLORIDE 20 MEQ CONTROLLED RELEASE TAB PO SCH (08:26)
[2016-05-05] MEDS: URSODIOL 300 MG CAP PO SCH ×2 (08:26→21:08)
[2016-05-05] MEDS: POLYETHYLENE GLYCOL 17 GM PKG PO SCH ×2 (08:28→21:00)
[2016-05-05] MEDS: PANTOPRAZOLE SODIUM 40 MG VIAL IV SCH (08:28)
--- NOTE | 2016-05-05 09:50 | HHI.GIFU ---
Subjective Remarks alert NAD Afebrile Tolerating po ...denies abdominal pain c/o RASH Objective Vitals I&O Vital Signs Date Time Temp Pulse Resp B/P Pulse Ox O2 Delivery O2 Flow Rate FiO2 05/05/16 08:49 94 Nasal Cannula 3.00 05/05/16 07:44 95 Nasal Cannula 3.00 05/05/16 04:21 18 05/05/16 00:00 98.7 78 18 106/62 95 05/04/16 20:00 98.6 79 20 159/88 97 05/04/16 20:00 78 05/04/16 19:46 96 Nasal Cannula 3.00 05/04/16 16:00 98.4 83 16 121/69 95 05/04/16 16:00 94 Nasal Cannula 3.00 05/04/16 12:00 94 Nasal Cannula 3.00 05/04/16 12:00 98.8 89 16 140/80 95 I/O 05/04/16 05/04/16 05/04/16 05/05/16 05/05/16 05/05/16 07:00 15:00 23:00 07:00 15:00 23:00 Intake Total 960 ml 360 ml 320 ml Balance 960 ml 360 ml 320 ml Intake Oral 960 ml 360 ml 320 ml # Voids 3 3 3 # Bowel Movements 2 Laboratory Laboratory Tests Test 05/05/16 03:17 White Blood Count 11.0 Red Blood Count 2.93 Hemoglobin 9.1 Hematocrit 27.0 Mean Corpuscular Volume 92.0 Mean Corpuscular Hemoglobin 31.0 Mean Corpuscular Hemoglobin 33.7 Concent Red Cell Distribution Width 15.2 Platelet Count 371 Mean Platelet Volume 8.0 Sodium Level 140 Potassium Level 3.3 Chloride Level 100 Carbon Dioxide Level 30.0 Anion Gap 10 Blood Urea Nitrogen 5 Creatinine 0.74 Estimat Glomerular Filtration 78 Rate Random Glucose 159 Calcium Level 8.0 Total Bilirubin 2.5 Direct Bilirubin 1.6 Indirect Bilirubin 0.9 Aspartate Amino Transf 33 (AST/SGOT) Alanine Aminotransferase 29 (ALT/SGPT) Alkaline Phosphatase 67 Total Protein 5.3 Albumin 1.9 Imaging Last Impressions Chest X-Ray 05/03/16 0600 Signed Impressions: Service Date/Time: Tuesday, May 03, 2016 04:34 - CONCLUSION: No significant change with persistent bilateral lower lung zone atelectasis versus consolidation and small bilateral pleural effusions. Louis Thomas MD Abdomen X-Ray 04/28/16 Signed Impressions: Service Date/Time: April 11:13 - CONCLUSION: 1. Mild gaseous distention of bowel. No obstruction or free air. Isaiah Sparks MD Thoracentesis Ultrasound 04/26/16 Signed Impressions: Service Date/Time: Tuesday, April 26, 2016 15:11 - CONCLUSION: Uncomplicated ultrasound guided thoracentesis with removal of 350 cc of dark brown fluid. Nayan Esteves MD Chest CT 04/26/16 Signed Impressions: Service Date/Time: Tuesday, April 26, 2016 12:34 - CONCLUSION: 1. Bibasilar consolidation and moderate bilateral pleural effusions. This likely represents compressive atelectasis although pneumonia cannot be excluded. 2. Minimal groundglass densities in the upper lobes are nonspecific. Kashmir Hunter MD Abdomen/Pelvis CT 04/26/16 Signed Impressions: Service Date/Time: Tuesday, April 26, 2016 12:34 - CONCLUSION: 1. Acute pancreatitis with necrotic pancreas and extensive esequiel-pancreatic fluid/ phlegmon reaction. 2. Small amount of ascites. 3. Moderate bilateral pleural effusions and bibasilar atelectasis. 4. Benign-appearing hepatic low densities. Kasmhir Hunter MD Liver Ultrasound 04/22/16 Signed Impressions: Service Date/Time: Friday, April 22, 2016 15:09 - CONCLUSION: 1. Although there is gallbladder wall thickening and pericholecystic fluid the gallbladder is not distended nor do I identify any stones or sludge. MRCP is more sensitive for detecting small stones. 2. Trace amount ascites. Rene Mosqueda Jr., MD Cholangiopancreatography MRI 04/22/16 Signed Impressions: Service Date/Time: Friday, April 22, 2016 13:57 - CONCLUSION: Acute pancreatitis with extensive phlegmon reaction and ascites throughout the upper abdomen. There is evidence of cholelithiasis. Kashmir Hunter MD Physical Exam HEENT: Pupils round and reactive to light; normocephalic; atraumatic; no jaundice. NECK: Neck is supple, no JVD, no lymphadenopathy. CHEST: Chest is clear to auscultation and percussion. CARDIAC: Regular rate and rhythm with no murmur gallop or rubs. ABDOMEN: Soft, nondistended, nontender; no hepatosplenomegaly; bowel sounds are present in all four quadrants. EXTREMITIES: No clubbing, cyanosis, or edema. SKIN: rash noted diffuse trunk/back lower ext. C Assessment and Plan Assessment: (1) Gallstone pancreatitis Plan: PANCREATIC PHLEGMON Plan PT CONTINUES GRADUAL IMPROVEMENT, CONTINUE PRESENT THERAPY..POSSIBLE DRUG RASH FROM MEDS, COULD CONSIDER D/C IN 24-48 HRS IF OK W OTHER SPECIALTIES....WOULD SUGGEST FU CT ABD IN FEW DAYS - DISCUSSED W PT Grupo Tatum MD May 05, 2016 09:50
--- NOTE | 2016-05-05 10:31 | HHI.PR ---
Subjective Subjective Notes Resting in bed Overall feels improved Objective Vitals/I&O Vital Signs Date Time Temp Pulse Resp B/P Pulse Ox O2 Delivery O2 Flow Rate FiO2 05/05/16 08:49 94 Nasal Cannula 3.00 05/05/16 08:00 98.4 85 20 134/80 05/01/16 22:00 40 Labs Laboratory Tests Test 05/05/16 03:17 White Blood Count 11.0 Red Blood Count 2.93 Hemoglobin 9.1 Hematocrit 27.0 Mean Corpuscular Volume 92.0 Mean Corpuscular Hemoglobin 31.0 Mean Corpuscular Hemoglobin 33.7 Concent Red Cell Distribution Width 15.2 Platelet Count 371 Mean Platelet Volume 8.0 Sodium Level 140 Potassium Level 3.3 Chloride Level 100 Carbon Dioxide Level 30.0 Anion Gap 10 Blood Urea Nitrogen 5 Creatinine 0.74 Estimat Glomerular Filtration 78 Rate Random Glucose 159 Calcium Level 8.0 Total Bilirubin 2.5 Direct Bilirubin 1.6 Indirect Bilirubin 0.9 Aspartate Amino Transf 33 (AST/SGOT) Alanine Aminotransferase 29 (ALT/SGPT) Alkaline Phosphatase 67 Total Protein 5.3 Albumin 1.9 Cardiovascular: Regular Lungs: Clear Abdomen: Non-distended, Non-tender Extremities: No edema A/P Assessment and Plan 70 year old female with gallstone pancreatitis -Labs continue to improved -Start Actigall--- will need to be on for about 6 weeks -Planning to do lap kim in appx 6-8 weeks -Tolerating diet -OOB and mobilize -GS will see peripherally Attending Statement patients seen at bedside continues to improve start actigall will plan for lap kim in 6 weeks Attestation The exam, history, and the medical decision-making described in the above note were completed with the assistance of the mid-level provider. I reviewed and agree with the findings presented. I attest that I had a [id number] encounter with the patient on the same day, and personally performed and documented my assessment and findings in the medical record. Ricarda Cardona May 05, 2016 10:31 Vini Giordano MD May 08, 2016 21:30
--- NOTE | 2016-05-05 12:40 | HHI.IDPN ---
Note Infectious Disease Note Patient feels better. On nasal canula. Awake and alert. Ambulates hallways with PT. Afebrile. Still has macular rash at trunk, also on legs. (+) itching. PAST MEDICAL HISTORY 1. Arthritis. 2. Gallbladder disease. ALLERGIES SULFA. MEDICATIONS Vancomycin. SOCIAL HISTORY No tobacco use. Occasional alcohol. No illicit drugs. FAMILY HISTORY Noncontributory. OBJECTIVE: Vital Signs Date Time Temp Pulse Resp B/P Pulse Ox O2 Delivery O2 Flow Rate FiO2 05/05/16 08:49 94 Nasal Cannula 3.00 05/05/16 08:00 98.4 85 20 134/80 94 05/05/16 07:44 95 Nasal Cannula 3.00 05/05/16 04:21 18 05/05/16 00:00 98.7 78 18 106/62 95 05/04/16 20:00 98.6 79 20 159/88 97 05/04/16 20:00 78 05/04/16 19:46 96 Nasal Cannula 3.00 05/04/16 16:00 98.4 83 16 121/69 95 05/04/16 16:00 94 Nasal Cannula 3.00 05/04/16 05/04/16 05/05/16 15:00 23:00 07:00 Intake Total 960 ml 360 ml 320 ml Balance 960 ml 360 ml 320 ml Intake Oral 960 ml 360 ml 320 ml # Voids 3 3 3 # Bowel Movements 2 Laboratory Tests Test 05/04/16 05/05/16 04:41 03:17 White Blood Count 11.7 TH/MM3 11.0 TH/MM3 Red Blood Count 2.93 MIL/MM3 2.93 MIL/MM3 Hemoglobin 9.1 GM/DL 9.1 GM/DL Hematocrit 27.1 % 27.0 % Mean Corpuscular Volume 92.4 FL 92.0 FL Mean Corpuscular Hemoglobin 30.9 PG 31.0 PG Mean Corpuscular Hemoglobin 33.5 % 33.7 % Concent Red Cell Distribution Width 15.0 % 15.2 % Platelet Count 355 TH/MM3 371 TH/MM3 Mean Platelet Volume 7.9 FL 8.0 FL Laboratory Tests Test 05/04/16 05/05/16 04:41 03:17 Sodium Level 142 MEQ/L 140 MEQ/L Potassium Level 3.3 MEQ/L 3.3 MEQ/L Chloride Level 102 MEQ/L 100 MEQ/L Carbon Dioxide Level 29.8 MEQ/L 30.0 MEQ/L Anion Gap 10 MEQ/L 10 MEQ/L Blood Urea Nitrogen 4 MG/DL 5 MG/DL Creatinine 0.72 MG/DL 0.74 MG/DL Estimat Glomerular Filtration 80 ML/MIN 78 ML/MIN Rate Random Glucose 153 MG/DL 159 MG/DL Calcium Level 7.8 MG/DL 8.0 MG/DL Total Bilirubin 2.5 MG/DL 2.5 MG/DL Direct Bilirubin 1.7 MG/DL 1.6 MG/DL Indirect Bilirubin 0.8 MG/DL 0.9 MG/DL Aspartate Amino Transf 30 U/L 33 U/L (AST/SGOT) Alanine Aminotransferase 31 U/L 29 U/L (ALT/SGPT) Alkaline Phosphatase 60 U/L 67 U/L Total Protein 4.9 GM/DL 5.3 GM/DL Albumin 1.7 GM/DL 1.9 GM/DL IMAGING: Chest X-Ray 05/03/16 0600 Signed Impressions: Service Date/Time: Tuesday, May 03, 2016 04:34 - CONCLUSION: No significant change with persistent bilateral lower lung zone atelectasis versus consolidation and small bilateral pleural effusions. Louis Thomas MD Chest X-Ray 04/30/16 0000 Signed Impressions: Service Date/Time: Saturday, April 30, 2016 08:35 - CONCLUSION: Increased density bases bilaterally representing combination of atelectasis, consolidation and effusion. Compared to the prior exam, there has been worsening on the right. The left-sided findings are stable. Nayan Murray MD Chest X-Ray 05/03/16 0600 Signed Impressions: Service Date/Time: Tuesday, May 03, 2016 04:34 - CONCLUSION: No significant change with persistent bilateral lower lung zone atelectasis versus consolidation and small bilateral pleural effusions. Louis Thomas MD Abdomen X-Ray 04/28/16 0000 Signed Impressions: Service Date/Time: April 11:13 - CONCLUSION: 1. Mild gaseous distention of bowel. No obstruction or free air. Isaiah Sparks MD Thoracentesis Ultrasound 04/26/16 0000 Signed Impressions: Service Date/Time: Tuesday, April 26, 2016 15:11 - CONCLUSION: Uncomplicated ultrasound guided thoracentesis with removal of 350 cc of dark brown fluid. Nayan Esteves MD Chest CT 04/26/16 Signed Impressions: Service Date/Time: Tuesday, April 26, 2016 12:34 - CONCLUSION: 1. Bibasilar consolidation and moderate bilateral pleural effusions. This likely represents compressive atelectasis although pneumonia cannot be excluded. 2. Minimal groundglass densities in the upper lobes are nonspecific. Kashmir Hunter MD Abdomen/Pelvis CT 04/26/16 Signed Impressions: Service Date/Time: Tuesday, April 26, 2016 12:34 - CONCLUSION: 1. Acute pancreatitis with necrotic pancreas and extensive esequiel-pancreatic fluid/ phlegmon reaction. 2. Small amount of ascites. 3. Moderate bilateral pleural effusions and bibasilar atelectasis. 4. Benign-appearing hepatic low densities. Kashmir Hunter MD Liver Ultrasound 04/22/16 Signed Impressions: Service Date/Time: Friday, April 22, 2016 15:09 - CONCLUSION: 1. Although there is gallbladder wall thickening and pericholecystic fluid the gallbladder is not distended nor do I identify any stones or sludge. MRCP is more sensitive for detecting small stones. 2. Trace amount ascites. Rene Mosqueda Jr., MD Cholangiopancreatography MRI 04/22/16 Signed Impressions: Service Date/Time: Friday, April 22, 2016 13:57 - CONCLUSION: Acute pancreatitis with extensive phlegmon reaction and ascites throughout the upper abdomen. There is evidence of cholelithiasis. Kashmir Hunter MD PHYSICAL EXAMINATION GENERAL: No acute distress. Awake and alert and responsive. HEENT: (+) icterus. Oropharynx mucosa is dry. NECK: Supple. No adenopathy or swelling. LUNGS: Decreased breath sounds. HEART: Regular S1-S2 without audible murmurs, rubs or gallops. ABDOMEN: Distended, Decreased bowel sounds. Nontender to palpation. EXTREMITIES: No clubbing or cyanosis or edema. SKIN: Jaundiced. Warm and moist. Macular rash on the trunk and back and legs looks faded. NEUROLOGICAL: Non focal. IMPRESSION 1. Acute pancreatitis. Necrotic pancreatitis. 2. Sepsis. Intermittent fever. Temp improved. 3. Bilateral pleural effusions. Post drainage 04/26/16. 4. Leukocytosis. WBC improving. 5. Skin rash. Suspect is drug rash. Likely imipenem. However persist after stopping Imipenem and Micafungin although appears to be fading. Will stop Vancomycin since it could be the cause. RECOMMENDATIONS 1. Stop Vancomycin. 2. Monitor the rash. 3. Benadryl for itching. 4. She appears stable from ID standpoint and can be observed without antibiotics. Can be discharged without antibiotics. Bam Ly MD May 05, 2016 12:40
--- NOTE | 2016-05-05 16:10 | HHI.PR ---
Subjective Remarks doing better have developed rash afebrile tolerating po up and ambulating Objective Vitals Vital Signs Date Time Temp Pulse Resp B/P Pulse Ox O2 Delivery O2 Flow Rate FiO2 05/05/16 12:00 98.3 89 20 113/76 95 05/05/16 08:49 94 Nasal Cannula 3.00 05/05/16 08:00 98.4 85 20 134/80 94 05/05/16 07:44 95 Nasal Cannula 3.00 05/05/16 04:21 18 05/05/16 00:00 98.7 78 18 106/62 95 05/04/16 20:00 98.6 79 20 159/88 97 05/04/16 20:00 78 05/04/16 19:46 96 Nasal Cannula 3.00 I/O 05/04/16 05/04/16 05/04/16 05/05/16 05/05/16 05/05/16 07:00 15:00 23:00 07:00 15:00 23:00 Intake Total 960 ml 360 ml 320 ml Balance 960 ml 360 ml 320 ml Intake Oral 960 ml 360 ml 320 ml # Voids 3 3 3 # Bowel Movements 2 Result Diagram: 05/05/16 0317 05/05/16 0317 Imaging Last 72 hours Impressions Chest X-Ray 05/03/16 0600 Signed Impressions: Service Date/Time: Tuesday, May 03, 2016 04:34 - CONCLUSION: No significant change with persistent bilateral lower lung zone atelectasis versus consolidation and small bilateral pleural effusions. Louis Thomas MD Objective Remarks awake and alert, NAD anicteric lungs no rales or wheezes regular rhythm abdomen- soft, + bowel sounds, nontender, tympanitic extremities no edema A/P Assessment and Plan 70yF with Acute necrotizing gallstone pancreatitis, course complicated by acute hypoxic respiratory failure. Clinically, she is slowly improving. Again her leukocytosis persists, though afebrile and culture data negative. tolerating diet. clinically improving, and I think that it is safe to transfer her out of the ICU with hospitalist following. Pulm: Acute hypoxemic respiratory failure- resolving. Moderate bilateral pleural effusion -Wean down oxygen as zahida keep sat >92% -Bronchodilators. -s/p US guided right thoracentesis with removal 350 ml pleural fluid. Pleural fluid studies consistent with exudative effusion-cultures, gram stain negative -OOB to chair and ambulating daily. - encourage Incentive spirometry- good efforts Sepsis Acute necrotizing pancreatitis Extensive peripancreatic fluid/phlegmon Cholelithiasis -low fat diet per GI, advance diet per GI. -On Protonix 40 mg IV for GI prophylaxis. -Monitor LFTs and lipase level ( trending down). GI and general surgery are following. -04/22 MRCP: Acute pancreatitis with extensive phlegmon reaction and ascites throughout the upper abdomen. There is evidence of cholelithiasis. -04/22 US Liver: Although there is gallbladder wall thickening and pericholecystic fluid the gallbladder is not distended, no stones or sludge. -04/22 CT abdomen: Findings consistent with acute pancreatitis. Cholecystitis is a consideration as well. -04/27 CT of the chest abdomen pelvis on 04/27/16 showed moderate bilateral pleural effusion and worsening necrotizing pancreatitis. Extensive peripancreatic fluid /phlegmon. -For possible lap kim once her acute pancreatitis resolves. - gentle bowel regimen with senna, colace, miralax. goal daily bowel movements, currently achieving. -Follow up on blood, sputum cultures.... NGTD - FF LFTs- trending down - on Actigall GI ff- Dr. Tatum ff GS ff- signed off - Vancomycin Discontinued today 05/05 per ID - No need for further antibiotics Hypertension Hyperlipidemia -On Cardizem 60mg QID-Monitor HR and BP keep MAP>65 mmHg. -Echo showed EF 65-70% -Lactic acidosis resolved. Endo: Hyperglycemia secondary to critical illness- imrpoved -SSI medium scale for glycemic control Hypokalemia- - increase KCL to 30 meq po bid BMP in am Rash- likely drug rash - Vancomycin discontinued 05/05 - monitor GI prophylaxis with Protonix 40 mg daily and DVT prophylaxis with SCDs/Lovenox 40mg daily. Dispo: up and ambulating DC planning- 1-2 days if cleared with GI Giovanni Guzman MD May 05, 2016 16:10 Giovanni Guzman MD May 05, 2016 16:10
[2016-05-05] MEDS ORDERED: POTASSIUM CHLORIDE 20 MEQ CONTROLLED RELEASE TAB PO ONE (17:00)
[2016-05-05] MEDS: POTASSIUM CHLORIDE 10 MEQ CONTROLLED RELEASE TAB PO SCH (21:08)
[2016-05-06 00:39] VITALS: BP 133/72; PULSE 78; RESP 16; TEMP 97.8; O2SAT 98
[2016-05-06] MEDS: INSULIN NovoLIN REGULAR SUPPLEMENTAL SCALE SQ SCH ×3 (03:26→15:12)
[2016-05-06] MEDS ORDERED: PHARMACY ORDERED LAB XX ONE (03:45)
[2016-05-06 03:59] LABS: MEAN CELL VOLUME 92.8 FL (80.0-100.0); MEAN CORPUSCULAR HEMOGLOBIN 30.7 PG (27.0-34.0); MEAN CORPUSCULAR HGB CONC 33.1 % (32.0-36.0); PLATELET COUNT 364 TH/MM3 (150-450); RED CELL DISTRIBUTION WIDTH 15.2 % (11.6-17.2); REVIEW FLAG FINAL; WHITE BLOOD COUNT 9.5 TH/MM3 (4.0-11.0)
[2016-05-06 04:00] VITALS: BP 144/79; PULSE 86; RESP 18; TEMP 97.2; O2SAT 95
[2016-05-06 04:22] LABS: ALT (GPT) 23 U/L (10-53); ANION GAP 10 MEQ/L (5-15); AST (GOT) 23 U/L (15-37); BICARBONATE 28.9 MEQ/L (21.0-32.0); BLOOD UREA NITROGEN 4 MG/DL (7-18); CHLORIDE 103 MEQ/L (98-107); GLOMERULAR FILTRATION RATE 69 ML/MIN (>89); POTASSIUM 4.1 MEQ/L (3.5-5.1); SODIUM (NA) 142 MEQ/L (136-145)
[2016-05-06 04:24] LABS: ALKALINE PHOSPHATASE 57 U/L (45-117); TOTAL BILIRUBIN ADULT 2.2 MG/DL (0.2-1.0)
--- NOTE | 2016-05-06 07:59 | HHI.PR ---
Subjective Remarks Critical Care Notes: The patient is 70-year-old female with a past medical history of arthritis who presented to [facility] ED with complaint of diffuse abdominal pain associated with intractable nausea and vomiting. She denies any diarrhea or constipation. In addition, the patient denies any constitutional symptoms, chest pain or shortness of breath. She has had abdominal pain for several weeks in the past and was seen by Kirti FARMER and underwent endoscopy, colonoscopy and a gallbladder ultrasound which showed gallstones within the gallbladder and inflammation. It was recommended that she undergo a cholecystectomy. However, the patient refused and wanted to try homeopathic treatment. On arrival to the ED, the patient was tachycardic with a heart rate of 101 to 108. Her laboratory data significant for a leukocytosis with a WBC of 20.7 and lactic acidosis with a lactic acid level of 5.9. Furthermore, the patient was found to have significant elevated lipase level at 25,378 and elevated liver enzymes with AST of 156 and ALT 147 with a total bilirubin of 1.0. She had a CT scan of the abdomen and pelvis which showed findings consistent with acute pancreatitis in addition to possible cholecystitis. She subsequently underwent an MRCP which showed acute pancreatitis with extensive phlegmon reaction and ascites throughout the upper abdomen and evidence of cholelithiasis. In the emergency department, she was given morphine for pain and currently receiving third liter of crystalloids. The patient also was given Zosyn. She was seen by Dr. Stern from GI and Dr. Giordano from surgery and plan to continue with medical management for now until her acute pancreatitis resolves. The patient is a nondrinker. 04/23 Patient sates her abd pain somewhat better since last night received additional 2L boluses of NS lactic acid 5.8 this morning. WBC 10 from 20 this morning 04/24 No acute events overnight. Lactic acid and Lipase levels trending down. Afebrile. 04/25 Patient is on NRB mask with good sats. SPked fever with T: 101.8 last night pancultured and Vancomycin was added. Lipase trending down. 04/26 Patient was placed on BIPAP 02/24 with FIO2 80% , T:101.0 last night. Given Bumex 1mg x1 yesterday with good UO. Patient states her breathing and abd pain is better. 04/27: Patient remains on BiPAP 80% FiO2 overnight. Breathing comfortably. CT of the chest abdomen pelvis on 04/27/16 showed moderate bilateral pleural effusion and worsening necrotizing pancreatitis. Extensive peripancreatic fluid /phlegmon. Right pleural effusion drained yesterday with 350 mL of dark brown fluid removed 04/28: Remains on partial nonrebreather. Bedside ultrasound shows small to moderate effusion on the left side, not large enough to drain. Physical therapy consulted. We'll attempt high flow oxygen today 04/29 No acute events overnight. Patient is on high flow oxygen with 70% FIO2. Afebrile. 04/30: rash developed overnight which is itchy but nonpainful. abdominal pain relatively unchanged. per her , he says he thinks she looks better compared to yesterday. 05/01: OOB to chair x 4 hours yesterday. rash improved slightly. states her abdominal pain is slightly better. tolerated low fat diet yesterday. 05/02: clinically improving. abdominal pain continues to improve. tolerating diet. LFTs downtrending. walked around the ICU today. 05/06 Patient seen in her bedroom and discussed with Infectious Disease specialist doctor Bam Ly who states she is able to go home now with no antibiotics, also as per GI specialist asked to discharge and follow with GI specialists Doctor Eliud Clarke in 1 to 2 weeks will need new CT abdomen and pelvis in 2 to 3 weeks, she is stable no nausea, vomit or diarrhea, Nurse Miss eBy following. Objective Vital Signs Date Time Temp Pulse Resp B/P Pulse Ox O2 Delivery O2 Flow Rate FiO2 05/06/16 04:00 97.2 86 18 144/79 95 05/06/16 04:00 Nasal Cannula 3.00 05/06/16 00:39 97.8 78 16 133/72 98 05/06/16 00:00 Nasal Cannula 3.00 05/05/16 21:27 95 Nasal Cannula 3.00 05/05/16 20:00 Nasal Cannula 05/05/16 20:00 98.8 86 18 134/74 98 05/05/16 20:00 83 05/05/16 16:00 99.4 86 20 127/75 94 05/05/16 12:00 98.3 89 20 113/76 95 05/05/16 08:49 94 Nasal Cannula 3.00 05/05/16 08:00 98.4 85 20 134/80 94 I/O 05/05/16 05/05/16 05/05/16 05/06/16 05/06/16 05/06/16 07:00 15:00 23:00 07:00 15:00 23:00 Intake Total 320 ml 880 ml 1100 ml Balance 320 ml 880 ml 1100 ml Intake Oral 320 ml 880 ml 1100 ml IV Total 0 ml # Voids 3 4 6 # Bowel Movements 1 1 Result Diagram: 05/06/16 0337 05/06/16 033 Imaging Last Impressions Chest X-Ray 05/03/16 0600 Signed Impressions: Service Date/Time: Tuesday, May 03, 2016 04:34 - CONCLUSION: No significant change with persistent bilateral lower lung zone atelectasis versus consolidation and small bilateral pleural effusions. Louis Thomas MD Abdomen X-Ray 04/28/16 0000 Signed Impressions: Service Date/Time: April 11:13 - CONCLUSION: 1. Mild gaseous distention of bowel. No obstruction or free air. Isaiah Sparks MD Thoracentesis Ultrasound 04/26/16 0000 Signed Impressions: Service Date/Time: Tuesday, April 26, 2016 15:11 - CONCLUSION: Uncomplicated ultrasound guided thoracentesis with removal of 350 cc of dark brown fluid. Nayan Esteves MD Chest CT 04/26/16 0000 Signed Impressions: Service Date/Time: Tuesday, April 26, 2016 12:34 - CONCLUSION: 1. Bibasilar consolidation and moderate bilateral pleural effusions. This likely represents compressive atelectasis although pneumonia cannot be excluded. 2. Minimal groundglass densities in the upper lobes are nonspecific. Kashmir Hunter MD Abdomen/Pelvis CT 04/26/16 0000 Signed Impressions: Service Date/Time: Tuesday, April 26, 2016 12:34 - CONCLUSION: 1. Acute pancreatitis with necrotic pancreas and extensive princess-pancreatic fluid/ phlegmon reaction. 2. Small amount of ascites. 3. Moderate bilateral pleural effusions and bibasilar atelectasis. 4. Benign-appearing hepatic low densities. Kashmir Hunter MD Liver Ultrasound 04/22/16 0000 Signed Impressions: Service Date/Time: Friday, April 22, 2016 15:09 - CONCLUSION: 1. Although there is gallbladder wall thickening and pericholecystic fluid the gallbladder is not distended nor do I identify any stones or sludge. MRCP is more sensitive for detecting small stones. 2. Trace amount ascites. Rene Mosqueda Jr., MD Cholangiopancreatography MRI 04/22/16 0000 Signed Impressions: Service Date/Time: Friday, April 22, 2016 13:57 - CONCLUSION: Acute pancreatitis with extensive phlegmon reaction and ascites throughout the upper abdomen. There is evidence of cholelithiasis. Kashmir Hunter MD Procedures US Guided thoracentesis obtained 350 ml of fluid. Other Results Laboratory Tests Test 05/05/16 05/06/16 03:17 03:37 Direct Bilirubin 1.6 MG/DL Indirect Bilirubin 0.9 MG/DL White Blood Count 9.5 TH/MM3 Red Blood Count 2.80 MIL/MM3 Hemoglobin 8.6 GM/DL Hematocrit 26.0 % Mean Corpuscular Volume 92.8 FL Mean Corpuscular Hemoglobin 30.7 PG Mean Corpuscular Hemoglobin 33.1 % Concent Red Cell Distribution Width 15.2 % Platelet Count 364 TH/MM3 Mean Platelet Volume 7.7 FL Sodium Level 142 MEQ/L Potassium Level 4.1 MEQ/L Chloride Level 103 MEQ/L Carbon Dioxide Level 28.9 MEQ/L Anion Gap 10 MEQ/L Blood Urea Nitrogen 4 MG/DL Creatinine 0.82 MG/DL Estimat Glomerular Filtration 69 ML/MIN Rate Random Glucose 187 MG/DL Calcium Level 8.1 MG/DL Total Bilirubin 2.2 MG/DL Aspartate Amino Transf 23 U/L (AST/SGOT) Alanine Aminotransferase 23 U/L (ALT/SGPT) Alkaline Phosphatase 57 U/L Total Protein 5.5 GM/DL Albumin 1.9 GM/DL Objective Remarks GENERAL: No Distress SKIN: Warm and dry. HEAD: Atraumatic. Normocephalic. EYES: Pupils equal and round. No scleral icterus. No injection or drainage. ENT: No nasal bleeding or discharge. Mucous membranes pink and moist. NECK: Trachea midline. No JVD. CARDIOVASCULAR: Regular rate and rhythm. RESPIRATORY: No accessory muscle use. Clear to auscultation. Breath sounds equal bilaterally. GASTROINTESTINAL: Abdomen soft, non-tender, nondistended. Hepatic and splenic margins not palpable. MUSCULOSKELETAL: Extremities without clubbing, cyanosis, or edema. No obvious deformities. NEUROLOGICAL: Awake and alert. No obvious cranial nerve deficits. Motor grossly within normal limits. Five out of 5 muscle strength in the arms and legs. Normal speech. PSYCHIATRIC: Appropriate mood and affect; insight and judgment normal. Medications and IVs Current Medications Medications (Trade) Dose Ordered Sig/Reggie Route Start Time Stop Time Status Last Admin (NS Flush) 2 ml UNSCH PRN IVF 04/22/16 10:45 05/04/16 03:22 (Protonix Inj) 40 mg DAILY IV 04/22/16 13:45 05/05/16 08:28 Miscellaneous Information 1 Q361D XX 04/22/16 13:45 04/22/16 13:45 (Chlorhexidine 2% Cloth) Taper DAILY@04 TOP 04/23/16 04:00 04/19/17 03:59 05/02/16 03:34 (Chlorhexidine 2% Cloth) 3 pack UNSCH PRN TOP 04/22/16 13:45 (Zofran Inj) 4 mg Q8HR PRN IV PUSH 04/22/16 15:15 05/01/16 20:48 (Morphine Inj) 2 mg Q2H PRN IV PUSH 04/22/16 18:00 05/05/16 04:16 (Cardizem) 60 mg QID PO 04/23/16 09:00 05/05/16 21:08 (D50w (Vial) Inj) 25 ml UNSCH PRN IV PUSH 04/23/16 09:00 (Glucagon Inj) 1 mg UNSCH PRN OTHER 04/23/16 09:00 (NovoLIN R SUPPLEMENTAL SCALE) 1 Q6H SQ 04/23/16 09:00 05/06/16 03:26 (Lovenox Inj) 40 mg Q24H SQ 04/23/16 09:00 05/05/16 08:24 (Ativan Inj) 0.5 mg Q4H PRN IV 04/24/16 20:15 04/25/16 03:42 (Tylenol) 650 mg Q6H PRN PO 04/24/16 20:45 05/04/16 14:50 (Benadryl Inj) 12.5 mg Q6H PRN IV 04/30/16 11:00 05/05/16 08:35 (Creon 24-76-120) 3 cap TID PO 04/30/16 13:00 05/05/16 17:17 (Miralax) 17 gm BID PO 05/01/16 09:00 05/04/16 08:32 (Princess-Colace) 1 tab BID PO 05/01/16 09:00 05/05/16 21:08 (Actigall) 300 mg Q12HR PO 05/04/16 21:00 05/05/16 21:08 (KCl) 30 meq Q12HR PO 05/05/16 21:00 05/05/16 21:08 A/P Problem List: (1) Septic shock ICD Code: A41.9 (2) Acute cholecystitis ICD Code: K81.0 (3) Lactic acidosis ICD Code: E87.2 (4) Leukocytosis ICD Code: D72.829 (5) Gallstone pancreatitis ICD Code: K85.10 Assessment and Plan 1. Acute Necrotizing Gallstone pancreatitis/Pancreatic Phlegmon complicated with acute hypoxic respiratory failure, Improved and okay to transfer out of ICU to the Medicine floor, GI specialist recommended for discharge in the next 24 to 48 hours yesterday, and CT Abdomen and Pelvis within the next days. PPIs, Possible lap Cholecystectomy once her acute pancreatitis resolves. LFTs trending down. will need to follow with GI specialist and take decision after clear by GI specialist will need new CT abdomen and Pelvis in 2 to 3 days. follow with Doctor Eliud Clarke GI specialist in one to two weeks. 2. VDRF Improved 3. Moderate bilateral Pleural Effusions, Oxygen to keep Oxygen saturation >92%, Bronchodilator, Mucolytic and incentive spirometry Status post US guided right Thoracentesis with removal of 350 ml pleural fluid, effusion cultures negative. 2. Sepsis Intermittent Fever Temperature improved, okay to discharge from ID specialist and no antibiotics. 3. Bilateral Pleural effusions post drainage 04/26/16 4. Leukocytosis Improving. 5. Skin rash suspect drug rash likely Imipenem or Vancomycin antibiotics stopped. improving today. 6. Hypertension/Hyperlipidemia on Cardizem 60 mg QID monitor Heart rate, Echocardiogram EF 65-70% 7. Hypokalemia increased Potassium by mouth to 30 meq BID. Improved. 8. Anemia secondary to acute blood loss and acute pathology Hemoglobin 8.6 will need to follow with PCP GI prophylaxis with Protonix 40 mg daily and DVT prophylaxis with SCDs/Lovenox 40mg daily. Dispo: up and ambulating DC planning- today. Discharge Planning Discharge Home today. Problem Qualifiers (1) Leukocytosis: Qualified Code: D72.829 - Leukocytosis, unspecified type Case Townsend MD May 06, 2016 07:59
[2016-05-06 08:00] VITALS: BP 137/70; PULSE 76; RESP 18; TEMP 97.5; O2SAT 99
[2016-05-06] MEDS: ENOXAPARIN SODIUM 40 MG/0.4 ML SYRINGE SQ SCH (08:50)
[2016-05-06] MEDS: PANTOPRAZOLE SODIUM 40 MG VIAL IV SCH (08:50)
[2016-05-06] MEDS: URSODIOL 300 MG CAP PO SCH (08:51)
[2016-05-06] MEDS: POTASSIUM CHLORIDE 10 MEQ CONTROLLED RELEASE TAB PO SCH (08:52)
[2016-05-06] MEDS: DILTIAZEM HCL 60 MG TAB PO SCH ×3 (08:52→18:10)
[2016-05-06] MEDS: DOCUSATE SODIUM 50 MG/SENNA 8.6 MG TAB PO SCH (08:53)
[2016-05-06] MEDS: POLYETHYLENE GLYCOL 17 GM PKG PO SCH (08:53)
[2016-05-06] MEDS: LIPASE/PROTEASE/AMYLASE (24,000/76,000/120,000) CAP PO SCH ×3 (08:53→18:10)
--- NOTE | 2016-05-06 11:39 | HHI.GIFU ---
Subjective Remarks alert NAD VSS no complaints Objective Vitals I&O Vital Signs Date Time Temp Pulse Resp B/P Pulse Ox O2 Delivery O2 Flow Rate FiO2 05/06/16 09:30 99 Nasal Cannula 3.00 05/06/16 08:00 97.5 76 18 137/70 99 05/06/16 04:00 97.2 86 18 144/79 95 05/06/16 04:00 Nasal Cannula 3.00 05/06/16 00:39 97.8 78 16 133/72 98 05/06/16 00:00 Nasal Cannula 3.00 05/05/16 21:27 95 Nasal Cannula 3.00 05/05/16 20:00 Nasal Cannula 05/05/16 20:00 98.8 86 18 134/74 98 05/05/16 20:00 83 05/05/16 16:00 99.4 86 20 127/75 94 05/05/16 12:00 98.3 89 20 113/76 95 I/O 05/05/16 05/05/16 05/05/16 05/06/16 05/06/16 05/06/16 07:00 15:00 23:00 07:00 15:00 23:00 Intake Total 320 ml 880 ml 1100 ml Balance 320 ml 880 ml 1100 ml Intake Oral 320 ml 880 ml 1100 ml IV Total 0 ml # Voids 3 4 6 # Bowel Movements 1 1 Laboratory Laboratory Tests Test 05/06/16 03:37 White Blood Count 9.5 Red Blood Count 2.80 Hemoglobin 8.6 Hematocrit 26.0 Mean Corpuscular Volume 92.8 Mean Corpuscular Hemoglobin 30.7 Mean Corpuscular Hemoglobin 33.1 Concent Red Cell Distribution Width 15.2 Platelet Count 364 Mean Platelet Volume 7.7 Sodium Level 142 Potassium Level 4.1 Chloride Level 103 Carbon Dioxide Level 28.9 Anion Gap 10 Blood Urea Nitrogen 4 Creatinine 0.82 Estimat Glomerular Filtration 69 Rate Random Glucose 187 Calcium Level 8.1 Total Bilirubin 2.2 Aspartate Amino Transf 23 (AST/SGOT) Alanine Aminotransferase 23 (ALT/SGPT) Alkaline Phosphatase 57 Total Protein 5.5 Albumin 1.9 Imaging Last Impressions Chest X-Ray 05/03/16 0600 Signed Impressions: Service Date/Time: Tuesday, May 03, 2016 04:34 - CONCLUSION: No significant change with persistent bilateral lower lung zone atelectasis versus consolidation and small bilateral pleural effusions. Louis Thomas MD Abdomen X-Ray 04/28/16 Signed Impressions: Service Date/Time: April 11:13 - CONCLUSION: 1. Mild gaseous distention of bowel. No obstruction or free air. Isaiah Sparks MD Thoracentesis Ultrasound 04/26/16 Signed Impressions: Service Date/Time: Tuesday, April 26, 2016 15:11 - CONCLUSION: Uncomplicated ultrasound guided thoracentesis with removal of 350 cc of dark brown fluid. Nayan Esteves MD Chest CT 04/26/16 Signed Impressions: Service Date/Time: Tuesday, April 26, 2016 12:34 - CONCLUSION: 1. Bibasilar consolidation and moderate bilateral pleural effusions. This likely represents compressive atelectasis although pneumonia cannot be excluded. 2. Minimal groundglass densities in the upper lobes are nonspecific. Kashmir Hunter MD Abdomen/Pelvis CT 04/26/16 Signed Impressions: Service Date/Time: Tuesday, April 26, 2016 12:34 - CONCLUSION: 1. Acute pancreatitis with necrotic pancreas and extensive esequiel-pancreatic fluid/ phlegmon reaction. 2. Small amount of ascites. 3. Moderate bilateral pleural effusions and bibasilar atelectasis. 4. Benign-appearing hepatic low densities. Kashmir Hunter MD Liver Ultrasound 04/22/16 Signed Impressions: Service Date/Time: Friday, April 22, 2016 15:09 - CONCLUSION: 1. Although there is gallbladder wall thickening and pericholecystic fluid the gallbladder is not distended nor do I identify any stones or sludge. MRCP is more sensitive for detecting small stones. 2. Trace amount ascites. Rene Mosqueda Jr., MD Cholangiopancreatography MRI 04/22/16 Signed Impressions: Service Date/Time: Friday, April 22, 2016 13:57 - CONCLUSION: Acute pancreatitis with extensive phlegmon reaction and ascites throughout the upper abdomen. There is evidence of cholelithiasis. Kashmir Hunter MD Physical Exam HEENT: Pupils round and reactive to light; normocephalic; atraumatic; no jaundice. NECK: Neck is supple, no JVD, no lymphadenopathy. CHEST: Chest is clear to auscultation and percussion. CARDIAC: Regular rate and rhythm with no murmur gallop or rubs. ABDOMEN: Soft, nondistended, nontender; no hepatosplenomegaly; bowel sounds are present in all four quadrants. EXTREMITIES: No clubbing, cyanosis, or edema. Assessment and Plan Assessment: (1) Gallstone pancreatitis Plan: PANCREATIC PHLEGMON Plan PT continues stable ...OK w me for DC and outpt follow up w DR Clarke 1-2 weeks....recommend fu ct abd after dc as well for comparison in 2-3 weeks as well..cont w Creon therapy low fat diet etc. Thanks Grupo Tatum MD May 06, 2016 11:39
[2016-05-06 12:00] VITALS: BP 135/74; PULSE 80; RESP 18; TEMP 99.5; O2SAT 94
--- NOTE | 2016-05-06 12:30 | HHI.IDPN ---
Note Infectious Disease Note Patient okay. feels a little cold. Awake and alert. Ambulates hallways. Afebrile. Skin rash looks better. itching much improved. No nausea. poor appetite. PAST MEDICAL HISTORY 1. Arthritis. 2. Gallbladder disease. ALLERGIES SULFA. ANTIBIOTICS: None. SOCIAL HISTORY No tobacco use. Occasional alcohol. No illicit drugs. FAMILY HISTORY Noncontributory. OBJECTIVE: Vital Signs Date Time Temp Pulse Resp B/P Pulse Ox O2 Delivery O2 Flow Rate FiO2 05/06/16 09:30 99 Nasal Cannula 3.00 05/06/16 08:00 97.5 76 18 137/70 99 05/06/16 04:00 97.2 86 18 144/79 95 05/06/16 04:00 Nasal Cannula 3.00 05/06/16 00:39 97.8 78 16 133/72 98 05/06/16 00:00 Nasal Cannula 3.00 05/05/16 21:27 95 Nasal Cannula 3.00 05/05/16 20:00 Nasal Cannula 05/05/16 20:00 98.8 86 18 134/74 98 05/05/16 20:00 83 05/05/16 16:00 99.4 86 20 127/75 94 05/05/16 05/05/16 05/06/16 15:00 23:00 07:00 Intake Total 880 ml 1100 ml Balance 880 ml 1100 ml Intake Oral 880 ml 1100 ml IV Total 0 ml # Voids 4 6 # Bowel Movements 1 1 Laboratory Tests Test 05/05/16 05/06/16 03:17 03:37 White Blood Count 11.0 TH/MM3 9.5 TH/MM3 Red Blood Count 2.93 MIL/MM3 2.80 MIL/MM3 Hemoglobin 9.1 GM/DL 8.6 GM/DL Hematocrit 27.0 % 26.0 % Mean Corpuscular Volume 92.0 FL 92.8 FL Mean Corpuscular Hemoglobin 31.0 PG 30.7 PG Mean Corpuscular Hemoglobin 33.7 % 33.1 % Concent Red Cell Distribution Width 15.2 % 15.2 % Platelet Count 371 TH/MM3 364 TH/MM3 Mean Platelet Volume 8.0 FL 7.7 FL Laboratory Tests Test 05/05/16 05/06/16 03:17 03:37 Sodium Level 140 MEQ/L 142 MEQ/L Potassium Level 3.3 MEQ/L 4.1 MEQ/L Chloride Level 100 MEQ/L 103 MEQ/L Carbon Dioxide Level 30.0 MEQ/L 28.9 MEQ/L Anion Gap 10 MEQ/L 10 MEQ/L Blood Urea Nitrogen 5 MG/DL 4 MG/DL Creatinine 0.74 MG/DL 0.82 MG/DL Estimat Glomerular Filtration 78 ML/MIN 69 ML/MIN Rate Random Glucose 159 MG/DL 187 MG/DL Calcium Level 8.0 MG/DL 8.1 MG/DL Total Bilirubin 2.5 MG/DL 2.2 MG/DL Direct Bilirubin 1.6 MG/DL Indirect Bilirubin 0.9 MG/DL Aspartate Amino Transf 33 U/L 23 U/L (AST/SGOT) Alanine Aminotransferase 29 U/L 23 U/L (ALT/SGPT) Alkaline Phosphatase 67 U/L 57 U/L Total Protein 5.3 GM/DL 5.5 GM/DL Albumin 1.9 GM/DL 1.9 GM/DL IMAGING: Chest X-Ray 05/03/16 0600 Signed Impressions: Service Date/Time: Tuesday, May 03, 2016 04:34 - CONCLUSION: No significant change with persistent bilateral lower lung zone atelectasis versus consolidation and small bilateral pleural effusions. Louis Thomas MD Chest X-Ray 04/30/16 0000 Signed Impressions: Service Date/Time: Saturday, April 30, 2016 08:35 - CONCLUSION: Increased density bases bilaterally representing combination of atelectasis, consolidation and effusion. Compared to the prior exam, there has been worsening on the right. The left-sided findings are stable. Nayan Murray MD Chest X-Ray 05/03/16 0600 Signed Impressions: Service Date/Time: Tuesday, May 03, 2016 04:34 - CONCLUSION: No significant change with persistent bilateral lower lung zone atelectasis versus consolidation and small bilateral pleural effusions. Louis Thomas MD Abdomen X-Ray 04/28/16 0000 Signed Impressions: Service Date/Time: April 11:13 - CONCLUSION: 1. Mild gaseous distention of bowel. No obstruction or free air. Isaiah Sparks MD Thoracentesis Ultrasound 04/26/16 0000 Signed Impressions: Service Date/Time: Tuesday, April 26, 2016 15:11 - CONCLUSION: Uncomplicated ultrasound guided thoracentesis with removal of 350 cc of dark brown fluid. Nayan Esteves MD Chest CT 04/26/16 Signed Impressions: Service Date/Time: Tuesday, April 26, 2016 12:34 - CONCLUSION: 1. Bibasilar consolidation and moderate bilateral pleural effusions. This likely represents compressive atelectasis although pneumonia cannot be excluded. 2. Minimal groundglass densities in the upper lobes are nonspecific. Kashmir Hunter MD Abdomen/Pelvis CT 04/26/16 Signed Impressions: Service Date/Time: Tuesday, April 26, 2016 12:34 - CONCLUSION: 1. Acute pancreatitis with necrotic pancreas and extensive esequiel-pancreatic fluid/ phlegmon reaction. 2. Small amount of ascites. 3. Moderate bilateral pleural effusions and bibasilar atelectasis. 4. Benign-appearing hepatic low densities. Kashmir Hunter MD Liver Ultrasound 04/22/16 Signed Impressions: Service Date/Time: Friday, April 22, 2016 15:09 - CONCLUSION: 1. Although there is gallbladder wall thickening and pericholecystic fluid the gallbladder is not distended nor do I identify any stones or sludge. MRCP is more sensitive for detecting small stones. 2. Trace amount ascites. Rene Mosqueda Jr., MD Cholangiopancreatography MRI 04/22/16 Signed Impressions: Service Date/Time: Friday, April 22, 2016 13:57 - CONCLUSION: Acute pancreatitis with extensive phlegmon reaction and ascites throughout the upper abdomen. There is evidence of cholelithiasis. Kashmir Hunter MD PHYSICAL EXAMINATION GENERAL: No acute distress. Awake and alert and responsive. HEENT: (+) icterus. Oropharynx mucosa is dry. NECK: Supple. No adenopathy or swelling. LUNGS: Decreased breath sounds. HEART: Regular S1-S2 without audible murmurs, rubs or gallops. ABDOMEN: Soft less distended, Decreased bowel sounds. Nontender to palpation. EXTREMITIES: No clubbing or cyanosis or edema. SKIN: Jaundiced. Warm and moist. Macular rash on the trunk and back and legs faded. NEUROLOGICAL: Non focal. IMPRESSION 1. Acute pancreatitis. Necrotic pancreatitis. 2. Sepsis. Intermittent fever. Temp improved. 3. Bilateral pleural effusions. Post drainage 04/26/16. 4. Leukocytosis. WBC improving. 5. Skin rash. Suspect is drug rash. Improved little after stopping Imipenem and Micafungin, now looks much better after stopping Vancomycin. RECOMMENDATIONS Stable from ID standpoint. Can be discharged today from ID standpoint. No antibiotics. Bam Ly MD May 06, 2016 12:30
[2016-05-06] MEDS ORDERED: POTA-163 PO ×3 (12:57→13:12)
[2016-05-06] MEDS ORDERED: CREON24 PO ×3 (12:57→13:12)
[2016-05-06] MEDS ORDERED: PROT40TA PO ×3 (12:57→13:12)
[2016-05-06] MEDS ORDERED: DILT60TA33 PO ×3 (12:57→13:12)
--- NOTE | 2016-05-06 13:03 | HHI.DS ---
Discharge Summary Admission Date Apr 22, 2016 at 12:01 Discharge Date: May 06, 2016 Admitting Diagnosis septic shock, acute cholecystitis (1) Gallstone pancreatitis ICD Code: K85.10 Diagnosis: Principal (2) Septic shock ICD Code: A41.9 Diagnosis: Principal (3) Acute cholecystitis ICD Code: K81.0 Diagnosis: Principal (4) Lactic acidosis ICD Code: E87.2 Diagnosis: Principal (5) Leukocytosis ICD Code: D72.829 Diagnosis: Principal Procedures US Guided Thoracentesis Brief History - From Admission The patient is 70-year-old female with a past medical history of arthritis who presented to [facility] ED with complaint of diffuse abdominal pain associated with intractable nausea and vomiting. She denies any diarrhea or constipation. In addition, the patient denies any constitutional symptoms, chest pain or shortness of breath. She has had abdominal pain for several weeks in the past and was seen by Kirti FARMER and underwent endoscopy, colonoscopy and a gallbladder ultrasound which showed gallstones within the gallbladder and inflammation. It was recommended that she undergo a cholecystectomy. However, the patient refused and wanted to try homeopathic treatment. On arrival to the ED, the patient was tachycardic with a heart rate of 101 to 108. Her laboratory data significant for a leukocytosis with a WBC of 20.7 and lactic acidosis with a lactic acid level of 5.9. Furthermore, the patient was found to have significant elevated lipase level at 25,378 and elevated liver enzymes with AST of 156 and ALT 147 with a total bilirubin of 1.0. She had a CT scan of the abdomen and pelvis which showed findings consistent with acute pancreatitis in addition to possible cholecystitis. She subsequently underwent an MRCP which showed acute pancreatitis with extensive phlegmon reaction and ascites throughout the upper abdomen and evidence of cholelithiasis. In the emergency department, she was given morphine for pain and currently receiving third liter of crystalloids. The patient also was given Zosyn. She was seen by Dr. Stern from GI and Dr. Giordano from surgery and plan to continue with medical management for now until her acute pancreatitis resolves. The patient is a nondrinker. CBC/BMP: 3/17/17 0337 05/06/16 0337 Significant Findings Laboratory Tests Test 05/04/16 05/05/16 05/06/16 04:41 03:17 03:37 White Blood Count 11.7 TH/MM3 (4.0-11.0) Red Blood Count 2.93 MIL/MM3 2.93 MIL/MM3 2.80 MIL/MM3 (4.00-5.30) (4.00-5.30) (4.00-5.30) Hemoglobin 9.1 GM/DL 9.1 GM/DL 8.6 GM/DL (11.6-15.3) (11.6-15.3) (11.6-15.3) Hematocrit 27.1 % 27.0 % 26.0 % (35.0-46.0) (35.0-46.0) (35.0-46.0) Potassium Level 3.3 MEQ/L 3.3 MEQ/L (3.5-5.1) (3.5-5.1) Blood Urea Nitrogen 4 MG/DL (7-18) 5 MG/DL (7-18) 4 MG/DL (7-18) Estimat Glomerular Filtration 80 ML/MIN (>89) 78 ML/MIN (>89) 69 ML/MIN (>89) Rate Random Glucose 153 MG/DL 159 MG/DL 187 MG/DL (74-106) (74-106) (74-106) Calcium Level 7.8 MG/DL 8.0 MG/DL 8.1 MG/DL (8.5-10.1) (8.5-10.1) (8.5-10.1) Total Bilirubin 2.5 MG/DL 2.5 MG/DL 2.2 MG/DL (0.2-1.0) (0.2-1.0) (0.2-1.0) Direct Bilirubin 1.7 MG/DL 1.6 MG/DL (0.0-0.2) (0.0-0.2) Total Protein 4.9 GM/DL 5.3 GM/DL 5.5 GM/DL (6.4-8.2) (6.4-8.2) (6.4-8.2) Albumin 1.7 GM/DL 1.9 GM/DL 1.9 GM/DL (3.4-5.0) (3.4-5.0) (3.4-5.0) Indirect Bilirubin 0.9 MG/DL (0.0-0.8) Imaging Last Impressions Chest X-Ray 05/03/16 0600 Signed Impressions: Service Date/Time: Tuesday, May 03, 2016 04:34 - CONCLUSION: No significant change with persistent bilateral lower lung zone atelectasis versus consolidation and small bilateral pleural effusions. Louis Thomas MD Abdomen X-Ray 04/28/16 0000 Signed Impressions: Service Date/Time: April 11:13 - CONCLUSION: 1. Mild gaseous distention of bowel. No obstruction or free air. Isaiah Sparks MD Thoracentesis Ultrasound 04/26/16 0000 Signed Impressions: Service Date/Time: Tuesday, April 26, 2016 15:11 - CONCLUSION: Uncomplicated ultrasound guided thoracentesis with removal of 350 cc of dark brown fluid. Nayan Esteves MD Chest CT 04/26/16 0000 Signed Impressions: Service Date/Time: Tuesday, April 26, 2016 12:34 - CONCLUSION: 1. Bibasilar consolidation and moderate bilateral pleural effusions. This likely represents compressive atelectasis although pneumonia cannot be excluded. 2. Minimal groundglass densities in the upper lobes are nonspecific. Kashmir Hunter MD Abdomen/Pelvis CT 04/26/16 0000 Signed Impressions: Service Date/Time: Tuesday, April 26, 2016 12:34 - CONCLUSION: 1. Acute pancreatitis with necrotic pancreas and extensive esequiel-pancreatic fluid/ phlegmon reaction. 2. Small amount of ascites. 3. Moderate bilateral pleural effusions and bibasilar atelectasis. 4. Benign-appearing hepatic low densities. Kashmir Hunter MD Liver Ultrasound 04/22/16 0000 Signed Impressions: Service Date/Time: Friday, April 22, 2016 15:09 - CONCLUSION: 1. Although there is gallbladder wall thickening and pericholecystic fluid the gallbladder is not distended nor do I identify any stones or sludge. MRCP is more sensitive for detecting small stones. 2. Trace amount ascites. Rene Mosqueda Jr., MD Cholangiopancreatography MRI 04/22/16 0000 Signed Impressions: Service Date/Time: Friday, April 22, 2016 13:57 - CONCLUSION: Acute pancreatitis with extensive phlegmon reaction and ascites throughout the upper abdomen. There is evidence of cholelithiasis. Kashmir Hunter MD PE at Discharge GENERAL: No Distress SKIN: Warm and dry. HEAD: Atraumatic. Normocephalic. EYES: Pupils equal and round. No scleral icterus. No injection or drainage. ENT: No nasal bleeding or discharge. Mucous membranes pink and moist. NECK: Trachea midline. No JVD. CARDIOVASCULAR: Regular rate and rhythm. RESPIRATORY: No accessory muscle use. Clear to auscultation. Breath sounds equal bilaterally. GASTROINTESTINAL: Abdomen soft, non-tender, nondistended. Hepatic and splenic margins not palpable. MUSCULOSKELETAL: Extremities without clubbing, cyanosis, or edema. No obvious deformities. NEUROLOGICAL: Awake and alert. No obvious cranial nerve deficits. Motor grossly within normal limits. Five out of 5 muscle strength in the arms and legs. Normal speech. PSYCHIATRIC: Appropriate mood and affect; insight and judgment normal. Hospital Course Critical Care Notes: The patient is 70-year-old female with a past medical history of arthritis who presented to [facility] ED with complaint of diffuse abdominal pain associated with intractable nausea and vomiting. She denies any diarrhea or constipation. In addition, the patient denies any constitutional symptoms, chest pain or shortness of breath. She has had abdominal pain for several weeks in the past and was seen by Kirti FARMER and underwent endoscopy, colonoscopy and a gallbladder ultrasound which showed gallstones within the gallbladder and inflammation. It was recommended that she undergo a cholecystectomy. However, the patient refused and wanted to try homeopathic treatment. On arrival to the ED, the patient was tachycardic with a heart rate of 101 to 108. Her laboratory data significant for a leukocytosis with a WBC of 20.7 and lactic acidosis with a lactic acid level of 5.9. Furthermore, the patient was found to have significant elevated lipase level at 25,378 and elevated liver enzymes with AST of 156 and ALT 147 with a total bilirubin of 1.0. She had a CT scan of the abdomen and pelvis which showed findings consistent with acute pancreatitis in addition to possible cholecystitis. She subsequently underwent an MRCP which showed acute pancreatitis with extensive phlegmon reaction and ascites throughout the upper abdomen and evidence of cholelithiasis. In the emergency department, she was given morphine for pain and currently receiving third liter of crystalloids. The patient also was given Zosyn. She was seen by Dr. Stern from GI and Dr. Giordano from surgery and plan to continue with medical management for now until her acute pancreatitis resolves. The patient is a nondrinker. 04/23 Patient sates her abd pain somewhat better since last night received additional 2L boluses of NS lactic acid 5.8 this morning. WBC 10 from 20 this morning 04/24 No acute events overnight. Lactic acid and Lipase levels trending down. Afebrile. 04/25 Patient is on NRB mask with good sats. SPked fever with T: 101.8 last night pancultured and Vancomycin was added. Lipase trending down. 04/26 Patient was placed on BIPAP 02/24 with FIO2 80% , T:101.0 last night. Given Bumex 1mg x1 yesterday with good UO. Patient states her breathing and abd pain is better. 04/27: Patient remains on BiPAP 80% FiO2 overnight. Breathing comfortably. CT of the chest abdomen pelvis on 04/27/16 showed moderate bilateral pleural effusion and worsening necrotizing pancreatitis. Extensive peripancreatic fluid /phlegmon. Right pleural effusion drained yesterday with 350 mL of dark brown fluid removed 04/28: Remains on partial nonrebreather. Bedside ultrasound shows small to moderate effusion on the left side, not large enough to drain. Physical therapy consulted. We'll attempt high flow oxygen today 04/29 No acute events overnight. Patient is on high flow oxygen with 70% FIO2. Afebrile. 04/30: rash developed overnight which is itchy but nonpainful. abdominal pain relatively unchanged. per her , he says he thinks she looks better compared to yesterday. 05/01: OOB to chair x 4 hours yesterday. rash improved slightly. states her abdominal pain is slightly better. tolerated low fat diet yesterday. 05/02: clinically improving. abdominal pain continues to improve. tolerating diet. LFTs downtrending. walked around the ICU today. 05/06 Patient seen in her bedroom and discussed with Infectious Disease specialist doctor Bam Ly who states she is able to go home now with no antibiotics, also as per GI specialist asked to discharge and follow with GI specialists Doctor Eliud Clarke in 1 to 2 weeks will need new CT abdomen and pelvis in 2 to 3 weeks, she is stable no nausea, vomit or diarrhea, Nurse Miss Bey following. Assessment and Plan 1. Acute Necrotizing Gallstone pancreatitis/Pancreatic Phlegmon complicated with acute hypoxic respiratory failure, Improved and okay to transfer out of ICU to the Medicine floor, GI specialist recommended for discharge in the next 24 to 48 hours yesterday, and CT Abdomen and Pelvis within the next days. PPIs, Possible lap Cholecystectomy once her acute pancreatitis resolves. LFTs trending down. will need to follow with GI specialist and take decision after clear by GI specialist will need new CT abdomen and Pelvis in 2 to 3 days. follow with Doctor Eliud Clarke GI specialist in one to two weeks. 2. VDRF Improved 3. Moderate bilateral Pleural Effusions, Oxygen to keep Oxygen saturation >92%, Bronchodilator, Mucolytic and incentive spirometry Status post US guided right Thoracentesis with removal of 350 ml pleural fluid, effusion cultures negative. 2. Sepsis Intermittent Fever Temperature improved, okay to discharge from ID specialist and no antibiotics. 3. Bilateral Pleural effusions post drainage 04/26/16 4. Leukocytosis Improving. 5. Skin rash suspect drug rash likely Imipenem or Vancomycin antibiotics stopped. improving today. 6. Hypertension/Hyperlipidemia on Cardizem 60 mg QID monitor Heart rate, Echocardiogram EF 65-70% 7. Hypokalemia increased Potassium by mouth to 30 meq BID. Improved. 8. Anemia secondary to acute blood loss and acute pathology Hemoglobin 8.6 will need to follow with PCP GI prophylaxis with Protonix 40 mg daily and DVT prophylaxis with SCDs/Lovenox 40mg daily. Dispo: up and ambulating DC planning- today. Discharge Planning Discharge Home today. Pt Condition on Discharge: Good Discharge Disposition: Discharge Home Discharge Time: > 30 minutes Discharge Instructions DIET: Follow Instructions for: As Tolerated, No Restrictions Speech Therapy-Diet Recommends: Regular Case Townsend MD May 06, 2016 13:03
[2016-05-06 17:00] VITALS: BP 130/73; PULSE 92; RESP 19; O2SAT 94
== END 2016-05-06 19:20 | disposition home or self-care (01) | DRG 871 ==
LOC: HOR 10:04 → NEDA 12:01 → HIMW 15:40 → HCPC 05-02 17:13
PROVIDERS: ADMIT Internal Medicine; ATTEND Internal Medicine
PROC: 0W993ZZ Drainage of Right Pleural Cavity, Percutaneous Approach (ICD-10-PCS; principal; 2016-04-26)
DX: A41.9 Sepsis, unspecified organism (principal); K85.11 Biliary acute pancreatitis with uninfected necrosis; J96.01 Acute respiratory failure with hypoxia; R65.21 Severe sepsis with septic shock; J90 Pleural effusion, not elsewhere classified; K80.00 Calculus of gallbladder with acute cholecystitis without obstruction; E87.2 Acidosis; R18.8 Other ascites; D62 Acute posthemorrhagic anemia; K76.89 Other specified diseases of liver; I10 Essential (primary) hypertension; E78.5 Hyperlipidemia, unspecified; R73.9 Hyperglycemia, unspecified; E87.6 Hypokalemia; K29.70 Gastritis, unspecified, without bleeding; K44.9 Diaphragmatic hernia without obstruction or gangrene; K63.5 Polyp of colon; K59.00 Constipation, unspecified; L27.0 Generalized skin eruption due to drugs and medicaments taken internally; T36.1X5A Adverse effect of cephalosporins and other beta-lactam antibiotics, initial encounter; M19.90 Unspecified osteoarthritis, unspecified site; Y92.239 Unspecified place in hospital as the place of occurrence of the external cause; Z88.2 Allergy status to sulfonamides
CPT/HCPCS: 32555; 36600; 71010; 71260; 74000; 74176; 74177; 74181; 76377; 76705; 76937; 80048; 80053; 80061; 80076; 80202; 80307; 80320; 81001; 82247; 82248; 82805; 82945; 82948; 83605; 83615; 83690; 83735; 83986; 84100; 84132; 84157; 85007; 85025; 85027; 85610; 85730; 87040; 87070; 87086; 87102; 87205; 87206; 87641; 89051; 93005; 93306; 94002; 94003; 94640; 94664; 96361; 96374; 96375; C1729; C9113; J0743; J1200; J1650; J1956; J2060; J2248; J2270; J2405; J2543; J2550; J3370; J3480; J7030; J7040; J7050; Q9963; Q9967

== ENCOUNTER → 2016-11-16 | Day surgery (SDC) | payer MEDICARE ==
[~2016-11-16] VITALS: Ht 165.1 cm; Wt 57.6 kg
[~2016-11-16] MED LIST: *ONDANSETRON 4 MG VIAL PERIprocedural Use ONLY ONE; *PROMETHAZINE 25 MG/ML VIAL PERIprocedural use ONLY ONE; *morphine SULFATE 8 MG/ML PERIprocedure ONLY ONE; ACETAMINOPHEN/HYDROcodone 325 MG/5 MG TAB PO PRN; BIOF1TAB PO; BIOTCAP PO; BUPIVACAINE/EPINEPHRINE 0.25% 50 ML VIAL ONE; CHLORHEXIDINE GLUCONATE 2 % 1 PACK (2 CLOTHS) TOPICAL PRN; CREON24 PO; CYAN1TAB24 PO; DEXAMETHASONE SOD PHOS 4 MG/ML VIAL ONE; DILT60TA33 PO; DO NOT ADM ANY ANTICOAGULANT DRUGS PRN; ESMOLOL HCL 100 MG/10 ML VIAL IV ONE; FAMOTIDINE 20 MG/2 ML VIAL ONE; FOLI800T PO; GLYCOPYRROLATE 1 MG/5 ML SYRINGE IV PUSH ONE; INSULIN HUMAN REGULAR 1,000 UNITS/10 ML VIAL SQ PRN; LABETALOL HCL 100 MG/20 ML VIAL IV ONE; LACTATED RINGER'S 1000 ML IV PRN; LANTINJ SQ; LIDOCAINE HCL 1% PF 5 ML AMPULE OTHER ONE; METOPROLOL TARTRATE 25 MG TAB PO PRN; MIDAZOLAM HCL 2 MG/2 ML VIAL ONE; NEOSTIGMINE 3 MG/3 ML SYR IV ONE; NOVOINJ3 SQ; ONDANSETRON HCL 4 MG/2 ML VIAL IV PUSH ONE; ONDANSETRON HCL 4 MG/2 ML VIAL IV PUSH PRN; POTA10CA PO; PROPOFOL 200 MG/20 ML AMP IV ONE; ROCURONIUM INJ 50 MG/5 ML SYRINGE IV PUSH ONE; SODIUM CHLORID 0.9% 500 ML IV PRN; ceFAZolin 2 GM PREMIX 50 ML IV SCH; ceFAZolin 2 GM PREMIX 50 ML ONE; ePHEDrine/NS 25 MG/5 ML SYR IV ONE
[2016-11-16 12:10] LABS: AUTOMATED NEUTROPHIL # 3.2 TH/MM3 (1.8-7.7); BASOPHIL % 0.6 % (0.0-2.0); EOSINOPHIL % 0.8 % (0.0-4.0); HEMATOCRIT 38.3 % (35.0-46.0); HEMO FLAGS DIFF FINAL; LYMPH % 38.8 % (9.0-44.0); LYMPHOCYTE # 2.3 TH/MM3 (1.0-4.8); MEAN CELL VOLUME 90.1 FL (80.0-100.0); MEAN CORPUSCULAR HEMOGLOBIN 29.8 PG (27.0-34.0); MEAN CORPUSCULAR HGB CONC 33.1 % (32.0-36.0); MONO % 6.2 % (0.0-8.0); NEUT % 53.6 % (16.0-70.0); PLATELET COUNT 180 TH/MM3 (150-450); RED BLOOD COUNT 4.26 MIL/MM3 (4.00-5.30); RED CELL DISTRIBUTION WIDTH 16.6 % (11.6-17.2); WHITE BLOOD COUNT 5.9 TH/MM3 (4.0-11.0)
[2016-11-16 12:27] LABS: ANION GAP 8 MEQ/L (5-15); AST (GOT) 21 U/L (15-37); BICARBONATE 27.5 MEQ/L (21.0-32.0); BLOOD UREA NITROGEN 15 MG/DL (7-18); CHLORIDE 103 MEQ/L (98-107); GLOMERULAR FILTRATION RATE 86 ML/MIN (>89); POTASSIUM 4.2 MEQ/L (3.5-5.1); SODIUM (NA) 138 MEQ/L (136-145)
[2016-11-16 12:32] LABS: ALKALINE PHOSPHATASE 61 U/L (45-117); ALT (GPT) 20 U/L (10-53); TOTAL BILIRUBIN ADULT 0.9 MG/DL (0.2-1.0)
--- NOTE | 2016-11-16 13:28 | HHI.PR ---
Immediate Post Op Note Procedure Date: Nov 16, 2016 Pre Op Diagnosis: gallstone pancreatitis, jehovas Post Op Diagnosis: same Surgeon: Vini Giordano MD [employer](s): see or sheet Procedure: lap kim Findings: distended gallbladder Complications: none Specimen(s) removed: gallbladder Estimated blood loss: 10cc Anesthesia: General Drains: None Patient to: PACU Patient Condition: Good Vini Giordano MD Nov 16, 2016 13:28
[2016-11-16 15:30] VITALS: BP 132/68; PULSE 52; RESP 18; TEMP 97.8; O2SAT 96
--- NOTE | 2016-11-17 06:30 | MP ---
cc: VINI GIORDANO MD DATE OF SURGERY 11/16/2016 PREOPERATIVE DIAGNOSES Gallstone pancreatitis. History of pancreatic pseudocyst. POSTOPERATIVE DIAGNOSES Gallstone pancreatitis. History of pancreatic pseudocyst. PROCEDURE PERFORMED Laparoscopic cholecystectomy SURGEON Dr. Vini Giordano SUPERVISOR SIGN SHOP See OR sheet ANESTHESIA GETA. IV FLUIDS See Anesthesia sheet. ESTIMATED BLOOD LOSS 10 cc. DRAINS None. COMPLICATIONS None. WOUND CLASSIFICATION Clean and contaminated. SPECIMEN Gallbladder. FINDINGS Distended gallbladder. INDICATION The patient is a 70-year-old female who presented initially with gallstone pancreatitis. She underwent further workup and had resolution of this but developed significant pseudocyst involving almost the entirety of the pancreatic gland. The patient required supplements including insulin and pancreatic enzymes. The patient had pseudocyst gastrostomy endoscopically, again began to improve therefore decision was at this point for the patient to undergo laparoscopic cholecystectomy. Discussed with the patient in detail. The patient is a Islam. DETAILS OF PROCEDURE The patient is taken to the operating suite, placed in supine position. She was prepped and draped in the usual sterile fashion after induction of general endotracheal anesthesia. Brief time-out stating correct patient, procedure, surgical site. We were all in agreement with this. Attention first directed to the umbilicus where local anesthesia given first, followed by the stab/ny incision. Veress needle was placed, abdominal placement confirmed with saline drop test, the abdomen insufflated to 15 mmHg Pneumoperitoneum. The Veress needle was exchanged for a 5-mm port. On cursory inspection there was no evidence of injury. The gallbladder was noted to be somewhat distended in the right upper quadrant under the liver. Three other ports were placed, one 12-mm epigastric, followed by two 5-mm subcostal ports. The patient was placed in reverse Trendelenburg to the left. The gallbladder was grasped and retracted cephalad. Infundibulum was noted. [place] dissector was used to dissect out the cystic duct and cystic artery. Two clips placed proximal on the cystic artery and one distal and the cystic duct was somewhat enlarged. Therefore, a 10-mm clip was applied to ligate this and then three clips proximal and two distal and endoshears were used to transect the cystic duct. The gallbladder was removed from the gallbladder fossa with the hook electro-Bovie cautery, placed in the EndoCatch bag and removed from the abdomen. Suction irrigation was used until all effluent was clear. Hemostasis was obtained with electro-Bovie cautery. Pneumoperitoneum was removed, ports were removed. The epigastric port was closed with a 0 Vicryl in a [id number] fashion and 4-0 Monocryl was used in subcuticular fashion. Local anesthetic was injected at all port sites. The patient tolerated the procedure well. There was no intraoperative complication. The patient was extubated and taken stable to the PACU. Vini Giordano MD LSN/SSB /1:57 PM /6:14 AM
== END | disposition home or self-care (01) ==
LOC: HSDC 10:54
PROVIDERS: ATTEND Surgery
DX: K81.1 Chronic cholecystitis (principal); K85.10 Biliary acute pancreatitis without necrosis or infection; E11.9 Type 2 diabetes mellitus without complications; Z79.4 Long term (current) use of insulin
CPT/HCPCS: 00790; 47562; 80053; 82948; 85025; 88304; J0690; J1100; J2250; J2270; J2405; J2550; J2710; J3010; J7120